=== PATIENT | female | born 1950 | race Caucasian/White ===

== ENCOUNTER → 2016-07-07 | Outpatient (CLI) | payer MEDICARE, OTHER ==
[~2016-07-07] MED LIST: ACHD5005 PO; DULO60CA6; EST.625T PO; LEVO75TA57 PO; METF-380 PO; METO25TA PO; OXYB5SYR2 PO; OXYB5TAB9 PO; PARO40TA47 PO; SULF1TAB38 PO; VESICARE
== END ==
LOC: RAD 10:14
PROVIDERS: ATTEND Family Medicine
DX: Z12.31 Encounter for screening mammogram for malignant neoplasm of breast (principal)
CPT/HCPCS: 77067

== ENCOUNTER 2017-07-16 10:42 | Emergency (ER) | payer OTHER, MEDICARE ==
[~2017-07-16] VITALS: Ht 149.9 cm; Wt 72.6 kg
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
--- NOTE | 2017-07-16 12:00 | Diagnostic Imaging Report ---
PROCEDURE: CT head and CT cervical spine without contrast. TECHNIQUE: Multiple contiguous axial images were obtained through the brain and cervical spine without the use of intravenous contrast. Sagittal and coronal reformations through the cervical spine were then performed. INDICATION: Recent fall. Neck pain and stiffness. COMPARISON: 11/02/2010 FINDINGS: Head CT: No acute intracranial hemorrhage, mass effect or edema is seen. Cortez-white junction is preserved. Ventricles appear normal. No new focal abnormality is suspected. No basilar skull fracture suspected. Paranasal sinuses and mastoids are clear as visualized. Cervical spine CT: No acute fracture, malalignment or osseous destructive process is seen. Vertebral body heights are maintained. There is disc space narrowing and spurring most pronounced at C5/C6 and C6/C7. There are degenerative changes at the C1/C2 articulation as well particularly on the right. No acute soft tissue abnormality is suspected. IMPRESSION: 1. No evidence of an acute intracranial abnormality. 2. No evidence of acute cervical spine abnormality. Degenerative changes as described. Dictated by: Dictated on workstation # [id number]
[2017-07-16 12:19] VITALS: BP 144/116
== END 2017-07-16 12:19 | disposition home or self-care (01) ==
LOC: EDUNIT# 10:42 → ER 10:44
DX: S16.1XXA Strain of muscle, fascia and tendon at neck level, initial encounter (principal); S20.212A Contusion of left front wall of thorax, initial encounter; E03.9 Hypothyroidism, unspecified; E11.9 Type 2 diabetes mellitus without complications; Z88.1 Allergy status to other antibiotic agents; Z79.84 Long term (current) use of oral hypoglycemic drugs; Z87.19 Personal history of other diseases of the digestive system; V48.5XXA Car driver injured in noncollision transport accident in traffic accident, initial encounter
CPT/HCPCS: 70450; 71046; 72125

== ENCOUNTER → 2017-11-18 | Outpatient (CLI) | payer MEDICARE, OTHER | LOC: CARD 13:31 | PROVIDERS: ATTEND Internal Medicine Interventional Cardiology | DX: R06.02 Shortness of breath (principal); I08.1 Rheumatic disorders of both mitral and tricuspid valves | CPT/HCPCS: 93306 ==

== ENCOUNTER → 2017-11-29 | Day surgery (SDC) | payer MEDICARE, OTHER ==
[~2017-11-29] VITALS: Ht 152.4 cm; Wt 72.6 kg
[2017-11-29] VITALS (14 sets, daily range): BP systolic 88–137; BP diastolic 41–80
[~2017-11-29] MED LIST changes: +ASPI-983 PO; +LIDOCAINE 2% VISCOUS 15 ML UDC ONE; +LIDOCAINE 2% VISCOUS 15 ML UDC PO ONE; +MIDAZOLAM 5 MG/5 ML (VERSED) VIAL IV PRN; +MIDAZOLAM 5 MG/5 ML (VERSED) VIAL ONE; +NS IV 1000 ML 1,000 ML IV SCH; +NS IV 1000 ML 1,000 ML ONE; +OMEG1CAP58 PO; +PARO30TA74 PO; +fentaNYL INJECTION 100 MCG/2 ML AMP IVP PRN; +fentaNYL INJECTION 100 MCG/2 ML AMP ONE
--- NOTE | 2017-11-29 12:11 | Cardiac Procedure Note-CS/ASA ---
Pre-Procedure Note Pre-Op Procedure Note H&P Reviewed The H&P was reviewed, patient examined and no changes noted. Date H&P Reviewed: Nov 29, 2017 Time H&P Reviewed: 09:30 Conscious Sedation Pre-Proced Time 09:30 ASA Score 3 For ASA 3 and 4: Consider anesthesia and medical clearance. Also, for patients with a history of failed moderate sedation consider anesthesia. Airway Lungs Heart ASA score ASA 1: a normal healthy patient ASA 2: a patient with a mild systemic disease (mid diabetes, controlled hypertension, obesity ASA 3: a patient with a severe systemic disease that limits activity (angina , COPD, prior Myocardial infarction) ASA 4: a patient with an incapacitating disease that is a constant threat to life (CHF, renal failure) ASA 5: a moribund patient not expected to survive 24 hrs. (ruptured aneurysm) ASA 6: a declared brain patient whose organs are being harvested. For emergent operations, add the letter E after the classification Mallampati Classification Grade 1 Sedation Plan Analgesia, Amnesia, Plan communicated to team members, Discussed options with patient/fam, Discussed risks with patient/fam The patient is an appropriate candidate to undergo the planned procedure, sedation, and anesthesia. The patient immediately re-assessed prior to indication. Vinod MALHOTRA MD Nov 29, 2017 12:11 pm
== END | disposition home or self-care (01) ==
LOC: CATH 08:29
PROVIDERS: ATTEND Internal Medicine Interventional Cardiology
DX: I08.0 Rheumatic disorders of both mitral and aortic valves (principal); I10 Essential (primary) hypertension; E78.5 Hyperlipidemia, unspecified; I25.10 Atherosclerotic heart disease of native coronary artery without angina pectoris; E11.9 Type 2 diabetes mellitus without complications; R55 Syncope and collapse; R06.02 Shortness of breath; Z79.84 Long term (current) use of oral hypoglycemic drugs; Z79.899 Other long term (current) drug therapy; Z79.82 Long term (current) use of aspirin
CPT/HCPCS: 93312; 93320; 93325

== ENCOUNTER 2018-05-04 10:41 | Outpatient (RCR) | payer MEDICARE, OTHER ==
[~2018-05-04 10:41] MED LIST changes: -LIDOCAINE 2% VISCOUS 15 ML UDC ONE; -LIDOCAINE 2% VISCOUS 15 ML UDC PO ONE; -MIDAZOLAM 5 MG/5 ML (VERSED) VIAL IV PRN; -MIDAZOLAM 5 MG/5 ML (VERSED) VIAL ONE; -NS IV 1000 ML 1,000 ML IV SCH; -NS IV 1000 ML 1,000 ML ONE; -fentaNYL INJECTION 100 MCG/2 ML AMP IVP PRN; -fentaNYL INJECTION 100 MCG/2 ML AMP ONE
[2018-05-30] MEDS ORDERED: POTA-51 PO (15:09)
[2018-05-30] MEDS ORDERED: FURO40TA4 PO (15:10)
[2018-05-30] MEDS ORDERED: LISI-552 PO (15:10)
[2018-05-30] MEDS ORDERED: ATOR20TA66 PO (15:12)
[2018-05-30] MEDS ORDERED: NITR-65 PO (16:02)
== END 2018-07-12 | disposition home or self-care (01) ==
LOC: CR 10:41
PROVIDERS: ATTEND Thoracic Surgery (Cardiothoracic Vascular Surgery)
DX: Z48.812 Encounter for surgical aftercare following surgery on the circulatory system (principal); Z95.2 Presence of prosthetic heart valve
CPT/HCPCS: 93798

== ENCOUNTER 2018-05-30 14:26 | Emergency (ER) | payer MEDICARE, OTHER ==
[~2018-05-30] VITALS: Ht 149.9 cm; Wt 68.0 kg
[2018-05-30] MEDS ORDERED: POTA-51 PO (15:09)
[2018-05-30] MEDS ORDERED: FURO40TA4 PO (15:10)
[2018-05-30] MEDS ORDERED: LISI-552 PO (15:10)
[2018-05-30] MEDS ORDERED: ATOR20TA66 PO (15:12)
--- NOTE | 2018-05-30 15:24 | ED GU-Female ---
General Chief Complaint: General Problems/Pain Stated Complaint: FLUID RETENTION,COUGH, Nursing Triage Note: SUE AMBULATORY TO ER ROOM 7 WITH COMPLAINT OF CHEST TIGHTNESS WITH COUGHING , POSSIBLE FLUID RETENTION AND PAIN WITH URINATION. PATIENT STATES THE COUGH AND CHEST TIGHTNESS STARTED 2 DAYS AGO. SHE STATES SHE GAINED 5 LBS IN ONE DAY TODAY AND BELIEVES SHE HAS FLUID RETENTION. PATIENT ALSO COMPLAINS OF PAIN WITH URINATION X 3 DAYS. PATIENT IS CONSCIOUS, ALERT AND ORIENTED X4. Nursing Sepsis Screen: No Definite Risk Source: patient Exam Limitations: no limitations History of Present Illness Date Seen by Provider: May 30, 2018 Time Seen by Provider: 15:22 Initial Comments This 68-year-old white female presents with complaint of dysuria and frequency. She is concerned that she has urinary tract infection. Allergies and Home Medications Allergies Coded Allergies: vancomycin (Verified Allergy, Mild, 05/30/18) Home Medications Aspirin 81 Mg Tablet.dr, 81 MG PO DAILY, (Reported) Atorvastatin Calcium 20 Mg Tablet, 20 MG PO DAILY, (Reported) Furosemide 40 Mg Tablet, 40 MG PO DAILY, (Reported) Lisinopril 20 Mg Tablet, 20 MG PO DAILY, (Reported) Metformin Hcl 1,000 Mg Tablet, 1,000 MG PO BID WITH MEALS, (Reported) Metoprolol Succinate 25 Mg Tab.sr.24h, 25 MG PO HS, (Reported) [place]-3 Fatty Acids/Fish Oil 1 Each Capsule, 4 EACH PO DAILY, (Reported) Oxybutynin Chloride 5 Mg Tablet, 5 MG PO TID, (Reported) Potassium Chloride 20 Meq Tablet.er, 20 MEQ PO DAILY, (Reported) Patient Home Medication List Home Medication List Reviewed: Yes Review of Systems Review of Systems Constitutional: No chills, No fever EENTM: No hearing loss Respiratory: cough Cardiovascular: No chest pain Gastrointestinal: No abdominal pain, No nausea, No vomiting Genitourinary: dysuria, frequency Musculoskeletal: No back pain Skin: No rash Psychiatric/Neurological: No Symptoms Reported Endocrine: No Symptoms Reported Past Rehlqdo-Aulkxd-Bmapdr Hx Past Med/Social Hx: Reviewed Nursing Past Med/Soc Hx Patient Social History Alcohol Use: Denies Use Recreational Drug Use: No Smoking Status: Never a Smoker 2nd Hand Smoke Exposure: No Recent Foreign Travel: No Contact w/Someone Who Travel: No Recent Infectious Disease Expo: No Recent Hopitalizations: No (FALL & BROKEN BONES, CHILDREN, HYSTERECTOMY, KIDNEY INFECTION, KNEE REPLACE) Immunizations Up To Date Tetanus Booster (TDap): Unknown Date of Pneumonia Vaccine: Nov 13, 2010 Date of Influenza Vaccine: Oct 18, 2017 Seasonal Allergies Seasonal Allergies: No Past Medical History Surgeries: Yes (LEFT ROTARY CUFF/R WRIST/ ILSA TKR X2, HEART VALVE REPAIR) Cardiac, Section, Hysterectomy, Joint Replacement, Orthopedic Respiratory: No Cardiac: Yes (CONGESTIVE HEART FAILURE) High Cholesterol, Hypertension, Valvular Heart Disease Neurological: No Reproductive Disorders: 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 Sexually Transmitted Disease: No HIV/AIDS: No Genitourinary: No Gastrointestinal: Yes Diverticulosis Musculoskeletal: Yes (BORN WITH DEGENERATIVE BONE DISEASE/ARTHRITIS) Endocrine: Yes Hypothyroidsim, Diabetes, Non-Insulin dep HEENT: Yes Cataract Cancer: No (THYROID TUMORS) Psychosocial: No Integumentary: No Blood Disorders: No Adverse Reaction/Blood Tranf: No Physical Exam Vital Signs Vital Signs - First Documented 05/30/18 14:31 Temp 97.9 Pulse 101 Resp 18 B/P (MAP) 133/68 (89) Pulse Ox 98 O2 Delivery Room Air Capillary Refill : Less Than 3 Seconds Height, Weight, BMI Height: 4'11.00" Weight: 150lbs. 0.0oz. 68.702560lu; 31.3 BMI Method:Actual General Appearance: WD/WN, no apparent distress HEENT: normal ENT inspection Neck: full range of motion, normal inspection Cardiovascular: regular rate, rhythm Respiratory: lungs clear Gastrointestinal: non tender Back: normal inspection Extremities: normal range of motion, normal inspection Neurologic/Psychiatric: no motor/sensory deficits, alert Skin: normal color, warm/dry Progress/Results/Core Measures Suspected Sepsis Recent Fever Within 48 Hours: No Infection Criteria Present: Suspected New Infection New/Unexplained Altered Menta: No Sepsis Screen: No Definite Risk SIRS Temperature:97.9 Pulse: 101 Respiratory Rate: 18 Laboratory Tests 05/30/18 15:26: White Blood Count 6.6 Blood Pressure 133 /68 Mean: 89 Laboratory Tests 05/30/18 15:26: Creatinine 0.95, Platelet Count 344, Total Bilirubin 0.4 Results/Orders Lab Results Laboratory Tests Test 05/30/18 14:44 05/30/18 15:26 Range/Units Urine Color YELLOW Urine Clarity VERY CLOUDY H Urine pH 5 5-9 Urine Specific [place] 1.020 1.016-1.022 Urine Protein 2+ H NEGATIVE Urine Glucose (UA) NEGATIVE NEGATIVE Urine Ketones NEGATIVE NEGATIVE Urine Nitrite NEGATIVE NEGATIVE Urine Bilirubin NEGATIVE NEGATIVE Urine Urobilinogen NORMAL NORMAL MG/DL Urine Leukocyte Esterase 3+ H NEGATIVE Urine RBC (Auto) 2+ H NEGATIVE Urine RBC 2-5 H /HPF Urine WBC TNTC H /HPF Urine Squamous Epithelial Cells 2-5 /HPF Urine Crystals NONE /LPF Urine Bacteria MODERATE H /HPF Urine Casts NONE /LPF Urine Mucus NEGATIVE /LPF Urine Culture Indicated YES White Blood Count 6.6 4.3-11.0 10^3/uL Red Blood Count 4.08 L 4.35-5.85 10^6/uL Hemoglobin 11.3 L 11.5-16.0 G/DL Hematocrit 35 35-52 % Mean Corpuscular Volume 86 80-99 FL Mean Corpuscular Hemoglobin 28 25-34 PG Mean Corpuscular Hemoglobin Concent 32 32-36 G/DL Red Cell Distribution Width 14.4 10.0-14.5 % Platelet Count 344 130-400 10^3/uL Mean Platelet Volume 11.1 H 7.4-10.4 FL Neutrophils (%) (Auto) 56 42-75 % Lymphocytes (%) (Auto) 37 12-44 % Monocytes (%) (Auto) 6 0-12 % Eosinophils (%) (Auto) 2 0-10 % Basophils (%) (Auto) 1 0-10 % Neutrophils # (Auto) 3.7 1.8-7.8 X 10^3 Lymphocytes # (Auto) 2.4 1.0-4.0 X 10^3 Monocytes # (Auto) 0.4 0.0-1.0 X 10^3 Eosinophils # (Auto) 0.1 0.0-0.3 10^3/uL Basophils # (Auto) 0.1 0.0-0.1 10^3/uL Sodium Level 140 135-145 MMOL/L Potassium Level 4.1 3.6-5.0 MMOL/L Chloride Level 107 98-107 MMOL/L Carbon Dioxide Level 23 21-32 MMOL/L Anion Gap 10 5-14 MMOL/L Blood Urea Nitrogen 17 7-18 MG/DL Creatinine 0.95 0.60-1.30 MG/DL Estimat Glomerular Filtration Rate 58 BUN/Creatinine Ratio 18 Glucose Level 121 H 70-105 MG/DL Calcium Level 9.9 8.5-10.1 MG/DL Corrected Calcium 9.9 8.5-10.1 MG/DL Total Bilirubin 0.4 0.1-1.0 MG/DL Aspartate Amino Transf (AST/SGOT) 15 5-34 U/L Alanine Aminotransferase (ALT/SGPT) 13 0-55 U/L Alkaline Phosphatase 93 40-136 U/L Troponin I < 0.028 <0.028 NG/ML Total Protein 7.5 6.4-8.2 GM/DL Albumin 4.0 3.2-4.5 GM/DL My Orders Orders - AMPARO GARCIA MD Ekg Tracing (05/30/18 14:35) Ua Culture If Indicated (05/30/18 15:18) Cbc With Automated Diff (05/30/18 15:18) Troponin I (05/30/18 15:18) Comprehensive Metabolic Panel (05/30/18 15:18) Chest 1 View, Ap/Pa Only (05/30/18 15:18) Urine Culture (05/30/18 14:44) Vital Signs/I&O 05/30/18 14:31 Temp 97.9 Pulse 101 Resp 18 B/P (MAP) 133/68 (89) Pulse Ox 98 O2 Delivery Room Air Capillary Refill : Less Than 3 Seconds Blood Pressure Mean: 89 Progress Note : Time: 15:59 Progress Note The patient's urinalysis was consistent with a urinary tract infection. After discussion of the findings with the patient Macrobid 100 mg orally was initiated in the emergency department and a prescription was written for the patient uses at home. I encouraged the patient to follow up closely with her caregivers within the next 48 hours and I invited her to return to emergency department if she had any further problems or questions. Departure Impression Primary Impression: Urinary tract infection Qualified Codes: N30.00 - Acute cystitis without hematuria Disposition: HOME, SELF-CARE Condition: Improved Departure-Patient Inst. Decision time for Depature: 16:00 Referrals: ROSEMARIE JEFFERY MD (PCP/Family) Primary Care Physician Patient Instructions: Urinary Tract Infection, Adult (DC) Add. Discharge Instructions: Macrobid as prescribed. Close follow-up with your doctor within the next 48 hours. Return if any problems or questions. All discharge instructions reviewed with patient and/or family. Voiced understanding. Scripts Nitrofurantoin Monohyd/M-Cryst (Macrobid 100 mg Capsule) 100 Mg Capsule 1 TAB PO BID for 7 Days, CAP Prov: AMPARO GARCIA MD 05/30/18 AMPARO GARCIA MD May 30, 2018 15:24
[2018-05-30 15:31] LABS: BILIRUBIN,URINE NEGATIVE (NEGATIVE); CLARITY,URINE VERY CLOUDY; COLOR,URINE YELLOW; GLUCOSE, URINE (UA) NEGATIVE (NEGATIVE); KETONES,URINE NEGATIVE (NEGATIVE); LEUKOCYTE ESTERASE ,URINE 3+ (NEGATIVE); NITRITE,URINE NEGATIVE (NEGATIVE); PH,URINE 5 (5-9); PROTEIN,URINE 2+ (NEGATIVE); UROBILINOGEN,URINE NORMAL (NORMAL)
[2018-05-30 15:36] LABS: BASOPHILS # (AUTO) 0.1 10^3/uL (0.0-0.1); BASOPHILS % (AUTO) 1 % (0-10); EOSINOPHILS # (AUTO) 0.1 10^3/uL (0.0-0.3); EOSINOPHILS % (AUTO) 2 % (0-10); HEMATOCRIT 35 % (35-52); HEMOGLOBIN 11.3 G/DL (11.5-16.0); LYMPHOCYTES # (AUTO) 2.4 X 10^3 (1.0-4.0); LYMPHOCYTES % (AUTO) 37 % (12-44); MEAN CORPUSCULAR HEMOGLOBIN 28 PG (25-34); MEAN CORPUSCULAR HGB CONC 32 G/DL (32-36); MEAN CORPUSCULAR VOLUME 86 FL (80-99); MEAN PLATELET VOLUME 11.1 FL (7.4-10.4); MONOCYTES # (AUTO) 0.4 X 10^3 (0.0-1.0); MONOCYTES % (AUTO) 6 % (0-12); NEUTROPHILS # (AUTO) 3.7 X 10^3 (1.8-7.8); NEUTROPHILS % (AUTO) 56 % (42-75); PLATELET COUNT 344 10^3/uL (130-400); RED CELL DISTRIBUTION WIDTH 14.4 % (10.0-14.5); WHITE BLOOD COUNT 6.6 10^3/uL (4.3-11.0)
[2018-05-30 15:51] LABS: BACTERIA,URINE MODERATE /HPF; WBC,URINE TNTC /HPF
[2018-05-30 15:52] LABS: ALANINE AMINOTRANSFERASE 13 U/L (0-55); ALKALINE PHOSPHATASE 93 U/L (40-136); BILIRUBIN,TOTAL 0.4 MG/DL (0.1-1.0); BUN/CREATININE RATIO 18; CALCIUM 9.9 MG/DL (8.5-10.1); CARBON DIOXIDE 23 MMOL/L (21-32); CHLORIDE 107 MMOL/L (98-107); CREATININE SERUM 0.95 MG/DL (0.60-1.30); GFR ESTIMATED 58; GLUCOSE 121 MG/DL (70-105); POTASSIUM 4.1 MMOL/L (3.6-5.0); SODIUM 140 MMOL/L (135-145); TOTAL PROTEIN 7.5 GM/DL (6.4-8.2)
[2018-05-30] MEDS ORDERED: NITROFURANTOIN 100 MG (MACROBID) CAPSULE PO ONE (16:00)
[2018-05-30] MEDS ORDERED: NITR-65 PO (16:02)
[2018-05-30 16:16] VITALS: BP 107/63
--- NOTE | 2018-05-30 16:56 | Diagnostic Imaging Report ---
INDICATION: Chest pain. Portable chest 3:42 PM. FINDINGS: Heart size and pulmonary vascularity are normal. Lungs are clear. There are no effusions or pneumothoraces. There are postop changes from median sternotomy. IMPRESSION: Postsurgical changes in the chest. No acute abnormalities. Dictated by: Dictated on workstation # [id number]
== END 2018-05-30 16:16 | disposition home or self-care (01) ==
LOC: EDUNIT# 14:26 → ER 14:27
DX: N39.0 Urinary tract infection, site not specified (principal); E78.00 Pure hypercholesterolemia, unspecified; I10 Essential (primary) hypertension; E03.9 Hypothyroidism, unspecified; E11.9 Type 2 diabetes mellitus without complications; Z86.39 Personal history of other endocrine, nutritional and metabolic disease; Z87.19 Personal history of other diseases of the digestive system; Z88.1 Allergy status to other antibiotic agents; Z79.82 Long term (current) use of aspirin; Z79.84 Long term (current) use of oral hypoglycemic drugs; Z87.448 Personal history of other diseases of urinary system; Z96.653 Presence of artificial knee joint, bilateral; Z95.2 Presence of prosthetic heart valve; Z90.710 Acquired absence of both cervix and uterus; Z98.890 Other specified postprocedural states
CPT/HCPCS: 36415; 71045; 80053; 81000; 84484; 85025; 87077; 87088; 87186; 93005

== ENCOUNTER 2019-07-07 08:04 | Outpatient (RCR) | payer MEDICARE, OTHER ==
[~2019-07-07] VITALS: Ht 149 cm; Wt 67.0 kg
[~2019-07-07 08:04] MED LIST changes: +ATOR20TA66 PO; +FERR-84 PO; +FURO40TA4 PO; +LEVO75TA6 PO; +LISI-552 PO; +METF-399 PO; +METO-351 PO; +NITR-65 PO; +PARO20TA5 PO; +POTA-51 PO
== END 2019-07-07 14:28 | disposition home or self-care (01) ==
LOC: PREOP 08:04
PROVIDERS: ATTEND Surgery
DX: Z01.818 Encounter for other preprocedural examination (principal); Z11.59 Encounter for screening for other viral diseases; K21.9 Gastro-esophageal reflux disease without esophagitis; D64.9 Anemia, unspecified; K62.5 Hemorrhage of anus and rectum
CPT/HCPCS: 87635

== ENCOUNTER → 2019-08-10 | Outpatient (CLI) | payer MEDICARE, OTHER ==
[~2019-08-10] MED LIST changes: +PANT40TA2 PO
== END ==
LOC: CARD 13:54
PROVIDERS: ATTEND Internal Medicine Interventional Cardiology
DX: I34.0 Nonrheumatic mitral (valve) insufficiency (principal)
CPT/HCPCS: 93306

== ENCOUNTER 2020-05-20 18:32 | Emergency (ER) | payer MEDICARE, OTHER ==
[~2020-05-20] VITALS: Ht 149.8 cm; Wt 63.6 kg
[~2020-05-20 18:32] MED LIST changes: +ASPI-1238 PO; -ASPI-983 PO; -LISI-552 PO; +LISI20TA26 PO
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
[2020-05-20] MEDS ORDERED: RX-HYDROCODONE/APAP 5/325 MG #4 TAB PK PO PRN (19:00)
[2020-05-20] MEDS ORDERED: TETANUS,DIPTH,PERTUSS P/F (BOOSTRIX) 0.5 ML VIAL IM ONE (19:00)
[2020-05-20 19:23] VITALS: BP 98/42
[2020-05-20] MEDS ORDERED: MUPIROCIN 2% OINT 22 GM (BACTROBAN) TUBE TOP SCH (21:00)
== END 2020-05-20 19:23 | disposition home or self-care (01) ==
LOC: EDUNIT# 18:32 → ER 18:37
DX: T21.21XA Burn of second degree of chest wall, initial encounter (principal); E78.00 Pure hypercholesterolemia, unspecified; I10 Essential (primary) hypertension; F32.9 Major depressive disorder, single episode, unspecified; F41.9 Anxiety disorder, unspecified; K21.9 Gastro-esophageal reflux disease without esophagitis; E03.9 Hypothyroidism, unspecified; E11.9 Type 2 diabetes mellitus without complications; Z23 Encounter for immunization; Z88.8 Allergy status to other drugs, medicaments and biological substances; Z79.82 Long term (current) use of aspirin; Z79.890 Hormone replacement therapy; Z79.84 Long term (current) use of oral hypoglycemic drugs; X12.XXXA Contact with other hot fluids, initial encounter
CPT/HCPCS: 90471; 90715; 99284

== ENCOUNTER → 2020-06-11 | Outpatient (CLI) | payer MEDICARE, OTHER | LOC: CARD 13:50 | PROVIDERS: ATTEND Internal Medicine Cardiovascular Disease | DX: I11.9 Hypertensive heart disease without heart failure (principal); I08.1 Rheumatic disorders of both mitral and tricuspid valves; Z95.2 Presence of prosthetic heart valve | CPT/HCPCS: 93306 ==

== ENCOUNTER → 2020-07-24 | Outpatient (CLI) | payer MEDICARE, OTHER ==
[~2020-07-24] MED LIST changes: +CATHETER FLUSH 10 ML SYR IV PRN; +REGADENOSON 0.4 MG/5 ML SYR (LEXISCAN) IV ONE
[2020-07-24 13:41] VITALS: BP 116/70
--- NOTE | 2020-07-24 15:21 | Cardiology Stress Test Report ---
Stress Test Report Date of Procedure/Referring: Date of Procedure: Jul 24, 2020 PCP Matthew Dobbins MD Admitting Physician Tam Quiles MD Indications: HTN Baseline Heart Rate: 53 Baseline Blood Pressure: Blood Pressure Systolic: 116 Blood Pressure Diastolic: 70 Baseline Vitals Vital Signs Date Time Temp Pulse Resp B/P (MAP) Pulse Ox O2 Delivery O2 Flow Rate FiO2 07/24/20 13:41 53 18 116/70 (85) Baseline EKG: Baseline EKG: NSR Summary After explaining the procedure to the patient, she signed a consent and then brought to the stress nuclear laboratory. Patient received 0.4 mg Lexiscan for stress test, ECG, heart rate and blood pressure were monitored continuously. Resting and stress dose of radio tracer were injected, imaging was acquired and reviewed in short axis, horizontal long axis and vertical long axis views. TID: 1.0 SSS: 8 SDS: 5 EF: 86 1. Patient tolerated Lexiscan well 2. Breast attenuation affecting the quality of the images there is mild decreased uptake in the mid to apical anterolateral and inferolateral wall with mild reversibility, probably due to breast attenuation 3. Normal left ventricular size, EF 86% MATTHEW DOBBINS MD Jul 24, 2020 15:21
== END ==
LOC: CARD 12:30
PROVIDERS: ATTEND Internal Medicine Cardiovascular Disease
DX: I10 Essential (primary) hypertension (principal); R07.9 Chest pain, unspecified
CPT/HCPCS: 78452; 93017; A9502

== ENCOUNTER 2020-07-31 11:00 | Day surgery (SDC) | payer MEDICARE, OTHER ==
[2020-07-31] VITALS (10 sets, daily range): BP systolic 110–138; BP diastolic 58–84
[~2020-07-31] VITALS: Ht 149 cm; Wt 63.6 kg
[2020-07-31 08:59] LABS: HEMATOCRIT 35 % (35-52); HEMOGLOBIN 10.5 g/dL (11.5-16.0); MEAN CORPUSCULAR HEMOGLOBIN 25 pg (25-34); MEAN CORPUSCULAR HGB CONC 30 g/dL (32-36); MEAN CORPUSCULAR VOLUME 83 fL (80-99); MEAN PLATELET VOLUME 11.1 fL (9.0-12.2); PLATELET COUNT 372 10^3/uL (130-400); WHITE BLOOD COUNT 9.4 10^3/uL (4.3-11.0)
[2020-07-31 09:13] LABS: INR 1.1 (0.8-1.4); PROTHROMBIN TIME PATIENT 14.1 SEC (12.2-14.7)
[2020-07-31 09:22] LABS: ALBUMIN 4.2 GM/DL (3.2-4.5); BILIRUBIN,TOTAL 0.3 MG/DL (0.1-1.0); CALCIUM 9.4 MG/DL (8.5-10.1); CREATININE SERUM 0.94 MG/DL (0.60-1.30); POTASSIUM 3.9 MMOL/L (3.6-5.0); TOTAL PROTEIN 7.5 GM/DL (6.4-8.2)
--- NOTE | 2020-07-31 10:00 | Diagnostic Imaging Report ---
INDICATION: Pre-heart catheterization. Patient has chest pain. TIME OF EXAM: 9:06 AM Correlation is made with prior chest from 05/28/2018. FINDINGS: There are changes of median sternotomy. Lungs are clear. No infiltrates are seen. There is no effusion or pneumothorax. IMPRESSION: No acute cardiopulmonary process is detected. Dictated by: Dictated on workstation # [id number]
[~2020-07-31 11:00] MED LIST changes: +ACET325T38 PO; -CATHETER FLUSH 10 ML SYR IV PRN; +NS IV 1000 ML 1,000 ML IV SCH; +PANT40TA52 PO; -REGADENOSON 0.4 MG/5 ML SYR (LEXISCAN) IV ONE
[2020-07-31] MEDS ORDERED: VERAPAMIL 5 MG/2 ML (CALAN) VIAL IV ONE (11:06)
[2020-07-31] MEDS ORDERED: fentaNYL INJ 100 MCG/2 ML AMP ONE (11:07)
[2020-07-31] MEDS ORDERED: HEParin 1000 UNIT/ML (10ML VIAL) FOR BOLUS ONE (11:07)
[2020-07-31] MEDS ORDERED: MIDAZOLAM 5 MG/5 ML (VERSED) VIAL ONE (11:07)
[2020-07-31] MEDS ORDERED: NITRO DRIP 25000 MCG/D5W 250 ML IV ONE (11:08)
--- NOTE | 2020-07-31 11:42 | Conscious Sedation/ASA ---
Conscious Sedation Pre-Proced Time 11:41 ASA Score 3 For ASA 3 and 4: Consider anesthesia and medical clearance. Also, for patients with a history of failed moderate sedation consider anesthesia. Airway Lungs Heart ASA score ASA 1: a normal healthy patient ASA 2: a patient with a mild systemic disease (mid diabetes, controlled hypertension, obesity x ASA 3: a patient with a severe systemic disease that limits activity (angina, COPD, prior Myocardial infarction) ASA 4: a patient with an incapacitating disease that is a constant threat to life (CHF, renal failure) ASA 5: a moribund patient not expected to survive 24 hrs. (ruptured aneurysm) ASA 6: a declared brain- patient whose organs are being harvested. For emergent operations, add the letter E after the classification Mallampati Classification Grade 3 Sedation Plan Analgesia, Amnesia, Plan communicated to team members, Discussed options with patient/fam, Discussed risks with patient/fam The patient is an appropriate candidate to undergo the planned procedure, sedation, and anesthesia. The patient immediately re-assessed prior to indication. MATTHEW VILLALOBOS MD Jul 31, 2020 11:42 am
[2020-07-31] MEDS ORDERED: METF-399 PO (11:43)
--- NOTE | 2020-07-31 11:44 | Discharge Inst-Post CATH ---
Discharge Inst-CATH/EP Problems Reviewed?: Yes Post Cardiac Cath/EP D/C Inst Follow Up/Plan Hold Metformin for [address] Dobbins's office in 2 to 4 weeks <b>CARDIAC CATH/EP PROCEDURE DISCHARGE INSTRUCTIONS</b> ACTIVITY * Go Home directly and rest. * Limit activity of the leg (or wrist if it was used) for 7 days including aerobics, swimming, jogging, bicycling, etc. * Restrict stair-climbing for 7 days if possible, if not, climb up with your non-cath leg, then bring together on the same step. * Avoid lifting, pushing, pulling or excessive movement of the affected extremity for 7 days. * Customary sexual activity may be resumed after 2 days-use caution not to use a position that strains or causes pain to the affected extremity. * No driving for 24 hours. * NO SMOKING. * Avoid straining for bowel movements for 7 days. * Gentle walking on level ground is allowed. * Returning to work will depend on the type of procedure and the results. Your doctor will discuss this with you. CALL YOUR DOCTOR FOR ANY OF THE FOLLOWING: *If bleeding from the puncture site occurs- Apply gentle pressure to site with clean cloth and call your doctor or EMS. * If a knot or lump forms under the skin, increases in size, or causes pain. * If bruising appears to be worsening or moving further down your leg instead of disappearing. * Temperature above 101 F. CARE OF YOUR GROIN INCISION; * Bruising or purple discoloration of the skin near the puncture site is common. * You may shower only, no bathtub bathing for 5 days. Be careful to avoid slipping as your leg may feel stiff. * If a closure device was used on your femoral artery, please see the attached guide regarding care of the device and your leg. * Leave dressing on FOR 24 hours. CARE OF YOUR WRIST INCISION; * Bruising or purple discoloration of the skin near the puncture site is common. * You may shower. * DO NOT submerge wrist. * Leave dressing on FOR 24 hours. MATTHEW DOBBINS MD Jul 31, 2020 11:44 am
[2020-07-31] MEDS ORDERED: NS IV 1000 ML 1,000 ML IV SCH (11:45)
--- NOTE | 2020-07-31 11:47 | Cardiac Cath Report ---
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 After explaining the procedure to the patient, all pros and cons were explained, all questions were answered. The patient signed the consent and then she was placed on the cardiac catheterization laboratory. Groin was prepped SL fashion local anesthesia was used. Sheath placed in the right radial artery, [place] catheter was advanced to the left coronary system, angiogram was done, unable to intubate well the right system, the catheter was removed and Niesha right catheter was used to advance to the right coronary system, angiogram was done. At the end of the procedure sheath was removed, vascular band deployed without complication. FINDINGS: Hemodynamics LV did not cross the aortic valve Aorta 80/34 mean of 53 ANATOMY: Left Main has no significant obstructive disease Left Anterior Descending has 20 to 30% ostial stenosis, mild irregularity distally nonobstructive disease Left Circumflex has mild disease nonobstructive disease Right Coronary Artery is dominant artery with no significant obstructive disease Fluoroscopy showed drained at the level of the mitral valve secondary to mitral valve repair CONCLUSION: 1. Mild ostial LAD stenosis nonobstructive disease 2. Otherwise mild coronary artery disease no significant obstructive disease 3. Fluoroscopy showed a ring around the mitral valve DISCUSSION AND RECOMMENDATION: Medical therapy is recommended no intervention is needed Anesthesia Type: Conscious Sedation Estimated blood loss (mL): 10 ml Contrast Amount: 40 ml Total Radiation Dose: 168 mGy Post-Procedure Diagnosis Post-operative diagnosis: Chest pain Coronary artery disease Hypertension Hyperlipidemia MATTHEW VILLALOBOS MD Jul 31, 2020 11:47 am
== END 2020-07-31 14:15 ==
LOC: CATH 11:00
PROVIDERS: ATTEND Internal Medicine Cardiovascular Disease
DX: I25.10 Atherosclerotic heart disease of native coronary artery without angina pectoris (principal); I10 Essential (primary) hypertension; I65.23 Occlusion and stenosis of bilateral carotid arteries; E78.5 Hyperlipidemia, unspecified; E11.9 Type 2 diabetes mellitus without complications; D64.9 Anemia, unspecified; E78.2 Mixed hyperlipidemia; Z79.890 Hormone replacement therapy; Z79.899 Other long term (current) drug therapy; Z79.84 Long term (current) use of oral hypoglycemic drugs; Z79.82 Long term (current) use of aspirin; Z95.2 Presence of prosthetic heart valve
CPT/HCPCS: 71045; 80053; 80061; 85027; 85610; 85730; 87081; 93454; C1894; 36415

== ENCOUNTER → 2021-01-06 | Outpatient (CLI) | payer MEDICARE, OTHER ==
[~2021-01-06] MED LIST changes: +AMIO200T65 PO; +APIX5TAB PO; +DILT180C85 PO; +MTP25TSR PO; +NITR100C PO; -NS IV 1000 ML 1,000 ML IV SCH
== END ==
LOC: LABNPT 08:39
PROVIDERS: ATTEND Internal Medicine Cardiovascular Disease
DX: Z20.822 Contact with and (suspected) exposure to COVID-19 (principal)
CPT/HCPCS: 87635

== ENCOUNTER 2021-01-08 08:25 | Day surgery (SDC) | payer MEDICARE, OTHER ==
[2021-01-08] VITALS (13 sets, daily range): BP systolic 84–117; BP diastolic 50–88
[~2021-01-08] VITALS: Ht 149 cm; Wt 70.0 kg
[~2021-01-08 08:25] MED LIST changes: -AMIO200T65 PO
[2021-01-08] MEDS ORDERED: LIDOCAINE 2% VISCOUS 15 ML UDC PO ONE (08:45)
[2021-01-08] MEDS ORDERED: NS IV 1000 ML 1,000 ML IV SCH (08:45)
[2021-01-08] MEDS ORDERED: ADENOSINE 6 MG/2 ML (ADENOCARD) VIAL IV ONE ×2 (08:45→08:47)
[2021-01-08] MEDS ORDERED: NS IV 1000 ML 1,000 ML ONE (08:47)
[2021-01-08 08:54] LABS: HEMATOCRIT 34 % (35-52); HEMOGLOBIN 10.5 g/dL (11.5-16.0); MEAN CORPUSCULAR HEMOGLOBIN 25 pg (25-34); MEAN CORPUSCULAR HGB CONC 31 g/dL (32-36); MEAN CORPUSCULAR VOLUME 80 fL (80-99); MEAN PLATELET VOLUME 10.3 fL (9.0-12.2); PLATELET COUNT 462 10^3/uL (130-400); WHITE BLOOD COUNT 9.5 10^3/uL (4.3-11.0)
[2021-01-08 09:08] LABS: INR 1.2 (0.8-1.4); PROTHROMBIN TIME PATIENT 15.1 SEC (12.2-14.7)
[2021-01-08] MEDS ORDERED: LIDOCAINE 2% VISCOUS 15 ML UDC ONE (09:12)
--- NOTE | 2021-01-08 09:12 | Diagnostic Imaging Report ---
INDICATION: Atrial fibrillation. TECHNIQUE: Single view chest 8:49 AM. CORRELATION STUDY: 12/12/2020 FINDINGS: Prior sternotomy changes. Heart size is enlarged with the mediastinum prominent. Fairly similar configuration with prior. Vasculature within normal limits. The lungs are clear with no consolidating infiltrate. There is no significant effusion or pneumothorax. IMPRESSION: 1. Generally stable severity cardiac enlargement and prominent mediastinum. No evidence for failure. Dictated by: Dictated on workstation # [id number]
[2021-01-08] MEDS ORDERED: proPOfol 200 MG/20 ML (DIPRIVAN) VIAL IV ONE (09:13)
[2021-01-08 09:18] LABS: ALBUMIN 3.9 GM/DL (3.2-4.5); BILIRUBIN,TOTAL 0.3 MG/DL (0.1-1.0); CALCIUM 9.4 MG/DL (8.5-10.1); POTASSIUM 4.3 MMOL/L (3.6-5.0); TOTAL PROTEIN 7.3 GM/DL (6.4-8.2)
--- NOTE | 2021-01-08 09:31 | Conscious Sedation/ASA ---
Conscious Sedation Pre-Proced Time 09:31 ASA Score 3 For ASA 3 and 4: Consider anesthesia and medical clearance. Also, for patients with a history of failed moderate sedation consider anesthesia. Airway Lungs Heart ASA score ASA 1: a normal healthy patient ASA 2: a patient with a mild systemic disease (mid diabetes, controlled hypertension, obesity ASA 3: a patient with a severe systemic disease that limits activity (angina, COPD, prior Myocardial infarction) ASA 4: a patient with an incapacitating disease that is a constant threat to life (CHF, renal failure) ASA 5: a moribund patient not expected to survive 24 hrs. (ruptured aneurysm) ASA 6: a declared brain- patient whose organs are being harvested. For emergent operations, add the letter E after the classification Mallampati Classification Grade 3 Sedation Plan Analgesia, Amnesia, Plan communicated to team members, Discussed options with patient/fam, Discussed risks with patient/fam The patient is an appropriate candidate to undergo the planned procedure, sedation, and anesthesia. The patient immediately re-assessed prior to indication. MATTHEW VILLALOBOS MD Jan 08, 2021 09:31
--- NOTE | 2021-01-08 09:33 | Cardioversion ---
Cardioversion PROCEDURE PHYSICIAN: Matthew Dobbins DATE OF PROCEDURE: 01/08/21 DIRECT EXTERNAL ELECTRICAL CARDIOVERSION: Indications: Atrial Fibrillation with rapid ventricular rate Preoperative diagnoses: Atrial Fibrillation with rapid ventricular rate Postoperative diagnosis: Sinus rhythm, Successful Electrical Cardioversion History: 70-year-old lady with history of coronary artery disease, mitral valve replacement, hypertension, had atrial fibrillation with variable rate. She was scheduled for [facility] cardioversion. Anesthesia: By Anesthesia services Complications: None Specimen: None Contrast: 0 Flouroscopy: none Procedure Details: The patient was brought the labor economics professor after informed consent was taken, all the risks and complications were explained including the risk of stroke. Electrical cardioversion was carried out with anesthesia support with propofol. 200 joules of synchronized shock was delivered through external patches which promptly restored sinus rhythm. The patient tolerated the procedure well. Conclusions: Successful electrical cardioversion with no complication Final Diagnosis: Paroxysmal atrial fibrillation Coronary artery disease Mitral valve replacement Hypertension MATTHEW DOBBINS MD Jan 08, 2021 09:33
[2021-01-08] MEDS ORDERED: APIXABAN 5 MG (ELIQUIS) TABLET PO SCH (09:45)
[2021-01-08] MEDS ORDERED: AMIODARONE FOR BOLUS 150 MG in D5W 100 ML IVPB 100 ML IV NR (10:00)
--- NOTE | 2021-01-08 11:03 | Anesthesia-General Post-Op ---
MAC Patient Condition Mental Status/LOC: Same as Preop Cardiovascular: Satisfactory Nausea/Vomiting: Absent Respiratory: Satisfactory Pain: Controlled Complications: Absent Post Op Complications Complications None Follow Up Care/Instructions Patient Instructions None needed. Anesthesiology Discharge Order Discharge Order Patient is doing well, no complaints, stable vital signs, no apparent adverse anesthesia problems. No complications reported per nursing. BENY CALVILLO CRNA Jan 08, 2021 11:03
[2021-01-08] MEDS ORDERED: AMIO200T65 PO (11:20)
--- NOTE | 2021-01-08 11:21 | Discharge Inst-Post CATH ---
Discharge Inst-CATH/EP Problems Reviewed?: Yes Post Cardiac Cath/EP D/C Inst Follow Up/Plan Appointment with Dr. Dobbins's office in 2-4 weeks <b>CARDIAC CATH/EP PROCEDURE DISCHARGE INSTRUCTIONS</b> ACTIVITY * Go Home directly and rest. * Limit activity of the leg (or wrist if it was used) for 7 days including aerobics, swimming, jogging, bicycling, etc. * Restrict stair-climbing for 7 days if possible, if not, climb up with your non-cath leg, then bring together on the same step. * Avoid lifting, pushing, pulling or excessive movement of the affected extremity for 7 days. * Customary sexual activity may be resumed after 2 days-use caution not to use a position that strains or causes pain to the affected extremity. * No driving for 24 hours. * NO SMOKING. * Avoid straining for bowel movements for 7 days. * Gentle walking on level ground is allowed. * Returning to work will depend on the type of procedure and the results. Your doctor will discuss this with you. CALL YOUR DOCTOR FOR ANY OF THE FOLLOWING: *If bleeding from the puncture site occurs- Apply gentle pressure to site with clean cloth and call your doctor or EMS. * If a knot or lump forms under the skin, increases in size, or causes pain. * If bruising appears to be worsening or moving further down your leg instead of disappearing. * Temperature above 101 F. CARE OF YOUR GROIN INCISION; * Bruising or purple discoloration of the skin near the puncture site is common. * You may shower only, no bathtub bathing for 5 days. Be careful to avoid slipping as your leg may feel stiff. * If a closure device was used on your femoral artery, please see the attached guide regarding care of the device and your leg. * Leave dressing on FOR 24 hours. CARE OF YOUR WRIST INCISION; * Bruising or purple discoloration of the skin near the puncture site is common. * You may shower. * DO NOT submerge wrist. * Leave dressing on FOR 24 hours. MATTHEW DOBBINS MD Jan 08, 2021 11:21
== END 2021-01-08 13:10 | disposition home or self-care (01) ==
LOC: SDC 08:25 → CATH 13:10
PROVIDERS: ATTEND Internal Medicine Cardiovascular Disease
DX: I48.0 Paroxysmal atrial fibrillation (principal); I25.10 Atherosclerotic heart disease of native coronary artery without angina pectoris; I10 Essential (primary) hypertension; E11.9 Type 2 diabetes mellitus without complications; E78.5 Hyperlipidemia, unspecified; D64.9 Anemia, unspecified; K21.9 Gastro-esophageal reflux disease without esophagitis; Z95.2 Presence of prosthetic heart valve; Z88.0 Allergy status to penicillin; Z88.1 Allergy status to other antibiotic agents; Z79.82 Long term (current) use of aspirin; Z79.899 Other long term (current) drug therapy; Z79.01 Long term (current) use of anticoagulants; Z79.890 Hormone replacement therapy; Z79.84 Long term (current) use of oral hypoglycemic drugs
CPT/HCPCS: 36415; 71045; 80053; 80061; 85027; 85610; 85730; 87081; 92960; 93005; 93312

== ENCOUNTER 2021-03-05 15:23 | Outpatient (RCR) | payer MEDICARE, OTHER ==
[~2021-03-05 15:23] MED LIST changes: +AMIO200T65 PO
== END 2021-04-09 | disposition home or self-care (01) ==
LOC: CR3 15:23
PROVIDERS: ATTEND Internal Medicine Cardiovascular Disease
DX: Z29.8 Encounter for other specified prophylactic measures (principal)

== ENCOUNTER → 2021-03-11 | Outpatient (CLI) | payer MEDICARE, OTHER ==
--- NOTE | 2021-03-11 15:48 | Diagnostic Imaging Report ---
INDICATION: Fall. TIME OF EXAM: 2:33 PM. FINDINGS: Two views of the right-sided ribs were obtained. No definite displaced rib fracture is detected. No parenchymal contusion, effusion, or pneumothorax is identified. Changes of median sternotomy are noted. There are postop changes in the right shoulder. IMPRESSION: No acute feature is detected. Dictated by: Dictated on workstation # [id number]
--- NOTE | 2021-03-11 15:55 | Diagnostic Imaging Report ---
INDICATION: Fall with right shoulder injury and pain AP, oblique and transscapular views of the right shoulder reveal anchor screw in the humeral head with deformity along the greater tuberosity which may be secondary to old injury. No acute fracture or malalignment is identified. IMPRESSION: Postoperative findings and deformity involving the proximal right humerus without evidence of acute fracture or malalignment. Dictated by: Dictated on workstation # [id number]
--- NOTE | 2021-03-11 15:57 | Diagnostic Imaging Report ---
INDICATION: Neck and right shoulder pain. COMPARISON with CT cervical spine of 07/16/2017. FINDINGS: AP and odontoid views. 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 There is complete loss of articulating cartilage with hypertrophic bony changes. The odontoid is intact. There is moderate hypertrophic degenerative change noted throughout the facets. 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 This has shown continued progression since previous CT scan. Dictated by: Dictated on workstation # [id number]
== END ==
LOC: RAD 13:55
PROVIDERS: ATTEND Nurse Practitioner Family
DX: S49.91XA Unspecified injury of right shoulder and upper arm, initial encounter (principal); M47.891 Other spondylosis, occipito-atlanto-axial region; W19.XXXA Unspecified fall, initial encounter
CPT/HCPCS: 71100; 72040; 73030

== ENCOUNTER → 2021-03-19 | Outpatient (CLI) | payer MEDICARE, OTHER ==
--- NOTE | 2021-03-19 11:37 | Diagnostic Imaging Report ---
PROCEDURE: MRI right joint upper extremity without contrast. TECHNIQUE: Multiplanar, multisequence non contrast-enhanced MRI of the right upper extremity was accomplished. INDICATION: Fall with right shoulder pain. COMPARISON: Radiographs from 03/11/2021. FINDINGS: No acute fracture or dislocation is seen in the right shoulder. There is superior migration of the humeral head. There are post surgical changes from prior rotator cuff repair. No significant joint effusion is seen. The [id number] is somewhat large and there is susceptibility artifact from the prior surgery resulting in suboptimal evaluation; however, there does appear to be a full-thickness tear involving the posterior supraspinatus and anterior infraspinatus tendons measuring approximately 1.5 cm wide. There is mild medial retraction of about 1.1 cm. There is additional marked thinning/high-grade partial-thickness tearing of the supraspinatus and infraspinatus tendons. The teres minor tendon appears intact. The subscapularis tendon is intact. There is marked atrophy of the supraspinatus and infraspinatus musculature. The long head of the biceps tendon appears normal in course and signal. The glenoid labrum is suboptimally evaluated in the absence of intra-articular contrast but no definite tear or paralabral cyst is seen. There are severe degenerative changes in the acromioclavicular joint. There appear to be acromioplasty changes of the acromion with a curved undersurface. There may also be some acetabularization of the acromion from superior migration of the humeral head. The soft tissues about the right shoulder are otherwise unremarkable. IMPRESSION: Post surgical changes in the right shoulder with an at least moderate-sized full-thickness tear in the right rotator cuff with additional high-grade partial-thickness tearing resulting in marked atrophy of the supraspinatus and infraspinatus musculature. Dictated by: Dictated on workstation # [id number]
== END ==
LOC: RAD 10:15
PROVIDERS: ATTEND Nurse Practitioner Family
DX: M62.511 Muscle wasting and atrophy, not elsewhere classified, right shoulder (principal); M75.111 Incomplete rotator cuff tear or rupture of right shoulder, not specified as traumatic; Z98.890 Other specified postprocedural states; W19.XXXA Unspecified fall, initial encounter
CPT/HCPCS: 73221

== ENCOUNTER 2021-06-04 13:34 | Outpatient (RCR) | payer MEDICARE, OTHER | END 2021-06-07 | disposition home or self-care (01) | PROVIDERS: ATTEND Orthopaedic Surgery | DX: Z96.611 Presence of right artificial shoulder joint (principal) ==

== ENCOUNTER 2021-07-02 12:46 | Outpatient (RCR) | payer MEDICARE, OTHER | END 2021-07-08 | disposition home or self-care (01) | PROVIDERS: ATTEND Orthopaedic Surgery | DX: Z96.611 Presence of right artificial shoulder joint (principal) ==

== ENCOUNTER 2021-07-30 11:30 | Day surgery (SDC) | payer MEDICARE, OTHER ==
[~2021-07-30] VITALS: Ht 149.9 cm; Wt 68.6 kg
[2021-07-30 11:26] VITALS: BP 132/51
[~2021-07-30 11:30] MED LIST changes: +LIDOCAINE 1% INJ 20 ML VIAL ONE
--- NOTE | 2021-07-30 11:49 | Diagnostic Imaging Report ---
INDICATION: Chest pain. EXAMINATION: Portable chest at 11:31 a.m. FINDINGS: There are postop changes from valve repair surgery. Heart size and pulmonary vascularity are normal. Lungs are clear. There are no effusions or pneumothoraces. Patient has had right shoulder arthroplasty. IMPRESSION: Postsurgical changes. No acute abnormality seen. Dictated by: Dictated on workstation # [id number]
[2021-07-30 11:55] LABS: BASOPHILS # (AUTO) 0.1 10^3/uL (0.0-0.1); BASOPHILS % (AUTO) 1 % (0-10); EOSINOPHILS # (AUTO) 0.1 10^3/uL (0.0-0.3); EOSINOPHILS % (AUTO) 2 % (0-10); HEMATOCRIT 34 % (35-52); HEMOGLOBIN 11.1 g/dL (11.5-16.0); LYMPHOCYTES # (AUTO) 1.8 10^3/uL (1.0-4.0); LYMPHOCYTES % (AUTO) 32 % (12-44); MEAN CORPUSCULAR HEMOGLOBIN 28 pg (25-34); MEAN CORPUSCULAR HGB CONC 32 g/dL (32-36); MEAN CORPUSCULAR VOLUME 88 fL (80-99); MEAN PLATELET VOLUME 10.6 fL (9.0-12.2); MONOCYTES # (AUTO) 0.3 10^3/uL (0.0-1.0); MONOCYTES % (AUTO) 5 % (0-12); NEUTROPHILS # (AUTO) 3.3 10^3/uL (1.8-7.8); NEUTROPHILS % (AUTO) 59 % (42-75); PLATELET COUNT 264 10^3/uL (130-400); WHITE BLOOD COUNT 5.6 10^3/uL (4.3-11.0)
--- NOTE | 2021-07-30 13:37 | Implantation of Loop Monitor ---
Implant of Loop Monitior IMPLANTATION OF LOOP MONITOR REPORT DATE OF PROCEDURE: 07/30/21 PREOP DIAGNOSIS: Paroxysmal atrial fibrillation, sinus node dysfunction POSTOP DIAGNOSIS: Paroxysmal atrial fibrillation, sinus node dysfunction PROCEDURE DETAILS: The patient is a 71 female with history of paroxysmal atrial fibrillation requiring long-term surveillance. Therefore implantable loop recorder was discussed and agreed with the patient. Informed consent was taken. All risks and complications were discussed at length. The patient was draped and prepped in the usual sterile fashion. Local anesthesia was lidocaine, which was given in the substernal area close to the 4th intercostal space. Loop monitor [employer] with serial number [id number] was implanted according to the protocol. Steri- Strips were placed at the end of the procedure. There were no complications and the patient tolerated the procedure well. The device was interrogated with a voltage of. ANESTHESIA: Local anesthesia with lidocaine. COMPLICATIONS: None CONTRAST/FLUOROSCOPY: None CONCLUSION: Successful implantation of loop monitor with no complication FINAL DIAGNOSIS: Paroxysmal atrial fibrillation Sinus node dysfunction Syncope Hypertension MATTHEW VILLALOBOS MD Jul 30, 2021 13:37
== END 2021-07-30 12:42 | disposition home or self-care (01) ==
LOC: CATH 11:30
PROVIDERS: ATTEND Internal Medicine Cardiovascular Disease
DX: I48.0 Paroxysmal atrial fibrillation (principal); I49.5 Sick sinus syndrome; R55 Syncope and collapse; I10 Essential (primary) hypertension; E66.9 Obesity, unspecified; I34.0 Nonrheumatic mitral (valve) insufficiency; I25.10 Atherosclerotic heart disease of native coronary artery without angina pectoris; E11.9 Type 2 diabetes mellitus without complications; E78.2 Mixed hyperlipidemia; I65.23 Occlusion and stenosis of bilateral carotid arteries; Z79.01 Long term (current) use of anticoagulants; Z79.899 Other long term (current) drug therapy; Z79.82 Long term (current) use of aspirin; Z79.84 Long term (current) use of oral hypoglycemic drugs; Z88.0 Allergy status to penicillin; Z88.1 Allergy status to other antibiotic agents; Z87.19 Personal history of other diseases of the digestive system; Z95.2 Presence of prosthetic heart valve; Z68.30 Body mass index [BMI] 30.0-30.9, adult
CPT/HCPCS: 33285; 71045; 84443; 85025; C1764; 36415

== ENCOUNTER 2021-08-06 14:36 | Outpatient (RCR) | payer MEDICARE, OTHER ==
[~2021-08-06 14:36] MED LIST changes: -LIDOCAINE 1% INJ 20 ML VIAL ONE
== END 2021-08-07 | disposition home or self-care (01) ==
PROVIDERS: ATTEND Orthopaedic Surgery
DX: M25.511 Pain in right shoulder (principal); E11.9 Type 2 diabetes mellitus without complications; Z96.611 Presence of right artificial shoulder joint

== ENCOUNTER 2021-08-27 14:30 | Outpatient (RCR) | payer MEDICARE, OTHER | END 2021-09-07 | disposition home or self-care (01) | PROVIDERS: ATTEND Orthopaedic Surgery | DX: M25.511 Pain in right shoulder (principal); E11.9 Type 2 diabetes mellitus without complications; Z96.611 Presence of right artificial shoulder joint ==

== ENCOUNTER 2021-09-07 19:44 | Emergency (ER) | payer MEDICARE, OTHER ==
[~2021-09-07] VITALS: Ht 157.4 cm; Wt 90.3 kg
[2021-09-07] MEDS ORDERED: ASPIRIN 81 MG CHEW (CHILDREN'S ASA) PO ONE (20:00)
[2021-09-07] MEDS ORDERED: NITROGLYCERIN 0.4 MG SL TABS BTL 25'S SL PRN (20:00)
--- NOTE | 2021-09-07 20:00 | ED Chest Pain ---
General Stated Complaint: HX AFIB, BACK AND CHEST PAIN Source: patient, family (Daughter) Exam Limitations: no limitations History of Present Illness Date Seen by Provider: Sep 07, 2021 Time Seen by Provider: 19:49 Initial Comments Patient to the ER by private conveyance from home with chief complaint that she is having chest pain for the past couple weeks. She has been having passing out episodes with the last 1 being 10 days ago. She is had several near syncopal episodes since then with the most recent one at a birthday libertarian tonight prior to coming in. She feels lightheaded before it happens. Her chest pains have been off and on. They are substernal midline. She has a history of Paroxysmal atrial fibrillation, loop monitor placed in July by Dr. Dobbins, sinus node dysfunction, syncope and hypertension. She is followed by Dr. Poole for primary care. She had an echocardiogram January 2021 demonstrating EF of 60%. She has a lot of anxiety. She describes it as a flash of feeling hot, dizzy and nauseated like she is going to pass out. Rates her chest pain as a 7 out of 10. She takes Eliquis, metoprolol, diltiazem and amiodarone. She is been taking these as prescribed. She states he has recently had a double her medications to control her heart rate. She has a history of rheumatic heart disease with a valve replacement. She is had to be cardioverted electrically. Cardiac catheterization from [address] Dobbins demonstrated mild ostial LAD stenosis otherwise nonobstructive disease. She has a history of hyperlipidemia but no hypertension. History of chronic low back pain. She is taking Tylenol for it. Allergies and Home Medications Allergies Coded Allergies: vancomycin (Verified Allergy, Severe, HIVES, DIFFICULTY BREATHING, 07/05/19) Patient Home Medication List Home Medication List Reviewed: Yes Acetaminophen (Tylenol) 325 Mg Tablet, 325 MG PO BID PRN for PAIN-MILD (1-4), (Reported) Entered as Reported by: VARSHA LORA on 07/31/20 0931 Amiodarone HCl (Amiodarone HCl) 200 Mg Tablet, 200 MG PO UD Prescribed by: MATTHEW DOBBINS on 01/08/21 1120 Apixaban (Eliquis) 5 Mg Tablet, 5 MG PO BID Prescribed by: EMY CURRY on 12/14/20 1248 Aspirin (Aspirin EC) 81 Mg Tablet.dr, 81 MG PO HS, (Reported) Entered as Reported by: DIRK BANDA on 11/29/17 1236 Atorvastatin Calcium (Atorvastatin Calcium) 20 Mg Tablet, 20 MG PO HS, (Reported) Entered as Reported by: RODOLFO VILLARREAL on 05/30/18 1512 Diltiazem HCl (Diltiazem 24Hr ER) 180 Mg Cap.er.24h, 180 MG PO DAILY Prescribed by: EMY CURRY on 12/14/20 1248 Levothyroxine Sodium (Levothyroxine Sodium) 75 Mcg Tablet, 75 MCG PO DAILY, (Reported) Entered as Reported by: LORI TORREZ on 07/05/19 1344 Metformin HCl (Metformin HCl) 1,000 Mg Tablet, 1,000 MG PO DAILY, (Reported) Entered as Reported by: VARSHA LORA on 12/13/20 1237 Metoprolol Succinate (Metoprolol Succinate) 25 Mg Tab.er.24h, 25 MG PO BID, (Reported) Entered as Reported by: VARSHA LORA on 12/13/20 1237 Pantoprazole Sodium (Pantoprazole Sodium) 40 Mg Tablet.dr, 40 MG PO DAILY, (Reported) Entered as Reported by: VARSHA LORA on 07/31/20 0926 Paroxetine HCl (Paroxetine HCl) 20 Mg Tablet, 20 MG PO HS, (Reported) Entered as Reported by: LORI TORREZ on 07/05/19 1344 Review of Systems Review of Systems Constitutional: No chills; dizziness EENTM: No Blurred Vision, No Double Vision Respiratory: Denies Cough, Denies Orthopnea Cardiovascular: See HPI, Chest Pain; Denies Edema, Denies Irregular Heart Rate; Lightheadedness; Denies Palpitations; Syncope Gastrointestinal: Denies Constipated, Denies Diarrhea, Denies Nausea Genitourinary: Denies Discharge, Denies Drainage Musculoskeletal: No back pain, No joint pain All Other Systems Reviewed Negative Unless Noted: Yes Past Bldzdse-Brppfy-Gpqzhi Hx Patient Social History Tobacco Use?: No Use of E-Cig and/or Vaping dev: No Substance use?: No Immunizations Up To Date Tetanus Booster (TDap): Unknown First/Initial COVID19 Vaccinat: 02/28 Second COVID19 Vaccination Marc: 03/31 Third COVID19 Vaccination Date: 02/28 Seasonal Allergies Seasonal Allergies: Yes (MILD) Past Medical History Surgery/Hospitalization HX: AORTIC VALVE REGURGITATION, HTN, EMERY CHOLESTEROL, NIDDM, GERD, HERNIA. Surgeries: Yes (LEFT ROTARY CUFF/R WRIST/ ILSA TKR X2, HEART VALVE REPAIR) Appendectomy, Cardiac, Section, Hysterectomy, Joint Replacement, Orthopedic Respiratory: No (CHRONIC COUGH) Currently Using BIPAP: No Cardiac: Yes (CONGESTIVE HEART FAILURE) Atrial Fibrillation, High Cholesterol, Hypertension, Syncope, Valvular Heart Disease Neurological: No Reproductive Disorders: No DIAMOND PICKER History: Hysterectomy Sexually Transmitted Disease: No HIV/AIDS: No Genitourinary: Yes UTI-Chronic Gastrointestinal: Yes Gastroesophageal Reflux, Diverticulosis, Chronic Diarrhea Musculoskeletal: Yes (BORN WITH DEGENERATIVE BONE DISEASE/ARTHRITIS) Endocrine: Yes Hypothyroidsim, Diabetes, Non-Insulin dep HEENT: Yes Cataract Loss of Vision: Denies Hearing Impairment: Denies Cancer: No (THYROID TUMORS) Skin Did You Recieve Any Treatments: No Psychosocial: Yes Anxiety, Depression Integumentary: No Blood Disorders: No Adverse Reaction/Blood Tranf: No (HAS HAD BLOOD WITH NO REACTION) Family Medical History No Pertinent Family Hx Physical Exam Vital Signs Vital Signs - First Documented Capillary Refill : Height, Weight, BMI Height: 4'11.00" Weight: 150lbs. 0.0oz. [id number]; 30.52 BMI Method:Actual General Appearance: No Apparent Distress, WD/WN HEENT: PERRL/EOMI, TMs Normal, Normal ENT Inspection, Pharynx Normal, Moist Mucous Membranes Neck: Full Range of Motion, Normal Inspection, Non Tender Respiratory: Chest Non Tender, Lungs Clear, Normal Breath Sounds, No Accessory Muscle Use, No Respiratory Distress Cardiovascular: Regular Rate, Rhythm, No Edema, Normal Peripheral Pulses Gastrointestinal: Normal Bowel Sounds, No Organomegaly, No Pulsatile Mass Extremity: Normal Capillary Refill, Normal Inspection, No Pedal Edema Neurologic/Psychiatric: Alert, Oriented x3 Skin: Normal Color, Warm/Dry Progress/Results/Core Measures Results/Orders Lab Results Laboratory Tests Test 09/07/21 19:55 Range/Units White Blood Count 8.0 4.3-11.0 10^3/uL Red Blood Count 4.62 3.80-5.11 10^6/uL Hemoglobin 13.5 11.5-16.0 g/dL Hematocrit 40 35-52 % Mean Corpuscular Volume 86 80-99 fL Mean Corpuscular Hemoglobin 29 25-34 pg Mean Corpuscular Hemoglobin Concent 34 32-36 g/dL Red Cell Distribution Width 14.1 10.0-14.5 % Platelet Count 485 H 130-400 10^3/uL Mean Platelet Volume 11.0 9.0-12.2 fL Immature Granulocyte % (Auto) 0 % Neutrophils (%) (Auto) 52 42-75 % Lymphocytes (%) (Auto) 40 12-44 % Monocytes (%) (Auto) 6 0-12 % Eosinophils (%) (Auto) 2 0-10 % Basophils (%) (Auto) 1 0-10 % Neutrophils # (Auto) 4.2 1.8-7.8 10^3/uL Lymphocytes # (Auto) 3.2 1.0-4.0 10^3/uL Monocytes # (Auto) 0.5 0.0-1.0 10^3/uL Eosinophils # (Auto) 0.1 0.0-0.3 10^3/uL Basophils # (Auto) 0.1 0.0-0.1 10^3/uL Immature Granulocyte # (Auto) 0.0 0.0-0.1 10^3/uL Prothrombin Time 15.8 H 12.2-14.7 SEC INR Comment 1.2 0.8-1.4 Activated Partial Thromboplast Time 42 H 24-35 SEC Sodium Level 139 135-145 MMOL/L Potassium Level 4.6 3.6-5.0 MMOL/L Chloride Level 105 98-107 MMOL/L Carbon Dioxide Level 20 L 21-32 MMOL/L Anion Gap 14 5-14 MMOL/L Blood Urea Nitrogen 21 H 7-18 MG/DL Creatinine 1.22 0.60-1.30 MG/DL Estimat Glomerular Filtration Rate 47 BUN/Creatinine Ratio 17 Glucose Level 170 H 70-105 MG/DL Calcium Level 9.8 8.5-10.1 MG/DL Corrected Calcium 9.6 8.5-10.1 MG/DL Magnesium Level 1.7 1.6-2.4 MG/DL Total Bilirubin 0.6 0.1-1.0 MG/DL Aspartate Amino Transf (AST/SGOT) 16 5-34 U/L Alanine Aminotransferase (ALT/SGPT) 14 0-55 U/L Alkaline Phosphatase 73 40-136 U/L Myoglobin 27.1 10.0-92.0 NG/ML Troponin I < 0.028 <0.028 NG/ML B-Type Natriuretic Peptide 224.6 H <100.0 PG/ML Total Protein 7.6 6.4-8.2 GM/DL Albumin 4.2 3.2-4.5 GM/DL Lipase 24 8-78 U/L My Orders Orders - FRAN HAHN Continuous Ekg Monitoring (09/07/21 19:49) Ekg Tracing (09/07/21 19:49) Cbc With Automated Diff (09/07/21 19:55) Magnesium (09/07/21 19:55) Chest 1 View, Ap/Pa Only (09/07/21 19:55) Comprehensive Metabolic Panel (09/07/21 19:55) Myoglobin Serum (09/07/21 19:55) Protime With Inr (09/07/21 19:55) Partial Thromboplastin Time (09/07/21 19:55) O2 (09/07/21 19:55) Lipid Panel (09/08/21 06:00) Ed Iv/Invasive Line Start (09/07/21 19:55) Lipase (09/07/21 19:55) Bnp Nance (09/07/21 19:55) Troponin I Nance (09/07/21 19:55) Nitroglycerin 0.4 Mg Btl 25's (Nitrostat (09/07/21 20:00) Aspirin Chewable Tablet (Baby Aspirin Ch (09/07/21 20:00) Orthostatic Vital Signs (Adult (09/07/21 19:55) Ed Iv/Invasive Line Start (09/07/21 21:06) Ns Iv 1000 Ml (Sodium Chloride 0.9%) (09/07/21 21:15) Ed Iv/Invasive Line Start (09/07/21 22:58) Ns Iv 1000 Ml (Sodium Chloride 0.9%) (09/07/21 23:00) Medications Given in ED Current Medications Medications Dose Ordered Sig/Demetrio Route Start Time Stop Time Status Last Admin Dose Admin Aspirin 324 mg ONCE ONCE PO 09/07/21 20:00 09/07/21 20:01 DC 09/07/21 20:06 324 MG Nitroglycerin 0.4 mg UD PRN SL 09/07/21 20:00 09/07/21 20:06 0.4 MG Vital Signs/I&O 09/07/21 09/07/21 09/07/21 19:50 19:50 20:08 Temp 36.9 Pulse 92 93 96 88 Resp 20 B/P (MAP) 144/101 (115) 127/74 (91) 104/79 (87) 97/83 (88) Pulse Ox 98 98 O2 Delivery Room Air Room Air Progress Progress Note #1: Time: 20:07 Progress Note Chest pain, syncope PE and near syncope for the past couple weeks with a clean heart cath 1 year ago. Suspect perhaps some of her medications that were elevated are causing her syncope and near syncope. We will get a troponin, set orthostatic vital signs and reevaluate after consultation with cardiology. Progress Note #2: Time: 00:05 Progress Note The patient was still little lightheaded after liter of fluids we gave her a second liter. After that we got her up and walked around and she did much better. She says she still feels a little weak but she is no longer lightheaded like she wants to pass out. We did instruct her to dangle her legs for 10 to 15 seconds after sitting up and to stand for 10 seconds before starting walking and this seemed to help her symptoms as well. She is eager to go home and follow-up in the morning with Dr. Dobbins. Initial ECG Impression Date: Sep 07, 2021 Initial ECG Impression Time: 19:53 Initial ECG Rate: 92 Initial ECG Rhythm: Normal Sinus Initial ECG Intervals: GA (220) Initial ECG Impression: Nonspecific Changes, 1st Degree AV Block Initial ECG Comparisson: Unchanged Comment Stable EKG showing no clinically relevant ST elevation or depression. First- degree block, sinus rhythm. Diagnostic Imaging Diagonstic Imaging: Xray Plain Films/CT/US/NM/MRI: chest Comments [facility], [place] NAME: MARKEL FERRERA MED REC#: [id number] PT STATUS: REG ER : 1950 PHYSICIAN: FRAN HAHN MD ADMIT DATE: 09/07/21/ER Signed Date of Exam:09/07/21 CHEST 1 VIEW, AP/PA ONLY INDICATION: Intermittent chest pain. COMPARISON: Prior study from 07/31/2019. FINDINGS: The patient is status post prior sternotomy. There is a new subcutaneous loop recorder. Enlargement of the cardiac silhouette is unchanged. There has been prior mitral valve annuloplasty. Lungs are clear. There is no edema. There is no pneumonia. There is no effusion. There is no pneumothorax. Prior surgical changes of the right shoulder are noted. IMPRESSION: Previous operative changes of sternotomy and mitral valve annuloplasty with stable cardiomegaly. Lungs are clear without pneumonia or edema. Dictated by: Dictated on workstation # [id number] Dict: 09/07/212012 Trans: 09/07/212015 [id number] Interpreted by: BARBARA CURIEL MD Electronically signed by: BARBARA CURIEL MD 09/07/212015 Reviewed: Reviewed by Me Consults : Consulting Physician: MATTHEW DOBBINS MD Consults Notes Discussed the case with her fur machine operator who is familiar with her. She had a clean catheterization a year ago and no history of coronary disease. It is felt that her orthostatic vital signs were positive and she had recently had her medications increased. Dr. Dobbins recommend we have her hold the diltiazem give her a liter of fluids and follow-up tomorrow or the following day in the clinic with him. Departure Impression Primary Impression: Orthostatic syncope Additional Impression: Chest pain Qualified Codes: R07.9 - Chest pain, unspecified Disposition: 01 HOME, SELF-CARE Condition: Stable Departure-Patient Inst. Decision time for Depature: 21:05 Referrals: TRISTIAN POOLE MD (PCP/Family) Primary Care Physician MATTHEW DOBBINS MD Patient Instructions: Chest Pain, Adult ED, Syncope (Fainting) (DC) Add. Discharge Instructions: Make sure you are drinking plenty of fluids. Stop taking the diltiazem/Cardizem. Call Dr. Dobbins first thing in the morning to be seen either Wednesday or Wednesday in his clinic. Return to the ER for severe, intractable chest pain. Copy Copies To 1: MATTHEW DOBBINS MD, TITUS J Sep 07, 2021 20:00
[2021-09-07 20:02] LABS: BASOPHILS # (AUTO) 0.1 10^3/uL (0.0-0.1); BASOPHILS % (AUTO) 1 % (0-10); EOSINOPHILS # (AUTO) 0.1 10^3/uL (0.0-0.3); EOSINOPHILS % (AUTO) 2 % (0-10); HEMATOCRIT 40 % (35-52); HEMOGLOBIN 13.5 g/dL (11.5-16.0); LYMPHOCYTES # (AUTO) 3.2 10^3/uL (1.0-4.0); LYMPHOCYTES % (AUTO) 40 % (12-44); MEAN CORPUSCULAR HEMOGLOBIN 29 pg (25-34); MEAN CORPUSCULAR HGB CONC 34 g/dL (32-36); MEAN CORPUSCULAR VOLUME 86 fL (80-99); MONOCYTES # (AUTO) 0.5 10^3/uL (0.0-1.0); MONOCYTES % (AUTO) 6 % (0-12); NEUTROPHILS # (AUTO) 4.2 10^3/uL (1.8-7.8); NEUTROPHILS % (AUTO) 52 % (42-75); PLATELET COUNT 485 10^3/uL (130-400)
[2021-09-07 20:08] VITALS: BP_SYST 104; BP_SYST 127; BP_SYST 97; BP_DIAS 74; BP_DIAS 79; BP_DIAS 83
--- NOTE | 2021-09-07 20:16 | Diagnostic Imaging Report ---
INDICATION: Intermittent chest pain. COMPARISON: Prior study from 07/31/2019. FINDINGS: The patient is status post prior sternotomy. There is a new subcutaneous loop recorder. Enlargement of the cardiac silhouette is unchanged. There has been prior mitral valve annuloplasty. Lungs are clear. There is no edema. There is no pneumonia. There is no effusion. There is no pneumothorax. Prior surgical changes of the right shoulder are noted. IMPRESSION: Previous operative changes of sternotomy and mitral valve annuloplasty with stable cardiomegaly. Lungs are clear without pneumonia or edema. Dictated by: Dictated on workstation # [id number]
[2021-09-07 20:17] LABS: INR 1.2 (0.8-1.4); PROTHROMBIN TIME PATIENT 15.8 SEC (12.2-14.7)
[2021-09-07 20:22] LABS: ALBUMIN 4.2 GM/DL (3.2-4.5); BILIRUBIN,TOTAL 0.6 MG/DL (0.1-1.0); CALCIUM 9.8 MG/DL (8.5-10.1); CREATININE SERUM 1.22 MG/DL (0.60-1.30); MAGNESIUM 1.7 MG/DL (1.6-2.4); POTASSIUM 4.6 MMOL/L (3.6-5.0); TOTAL PROTEIN 7.6 GM/DL (6.4-8.2)
[2021-09-07] MEDS ORDERED: NS IV 1000 ML 1,000 ML IV SCH ×2 (21:15→23:00)
[2021-09-08 00:26] VITALS: BP 129/73
== END 2021-09-08 00:24 | disposition home or self-care (01) ==
LOC: EDUNIT# 19:44 → ER 19:46
DX: R07.89 Other chest pain (principal); I95.1 Orthostatic hypotension; Z86.79 Personal history of other diseases of the circulatory system; Z79.01 Long term (current) use of anticoagulants; Z95.9 Presence of cardiac and vascular implant and graft, unspecified
CPT/HCPCS: 36415; 71045; 80053; 83690; 83735; 83874; 83880; 84484; 85025; 85610; 85730; 93005

== ENCOUNTER → 2021-09-09 | Outpatient (CLI) | payer MEDICARE, OTHER | LOC: CARD 13:30 | PROVIDERS: ATTEND Internal Medicine Cardiovascular Disease | DX: I34.0 Nonrheumatic mitral (valve) insufficiency (principal); I11.9 Hypertensive heart disease without heart failure | CPT/HCPCS: 93306 ==

== ENCOUNTER → 2021-09-10 | Outpatient (CLI) | payer MEDICARE, OTHER ==
[~2021-09-10] VITALS: Ht 149 cm; Wt 69.0 kg
[~2021-09-10] MED LIST changes: +CATHETER FLUSH 10 ML SYR IVP PRN; +REGADENOSON 0.4 MG/5 ML SYR (LEXISCAN) IV ONE; +meTOprolol 5 MG/5 ML (LOPRESSOR) VIAL IV ONE; +meTOprolol 5 MG/5 ML (LOPRESSOR) VIAL ONE
[2021-09-10 13:19] VITALS: BP 138/84
--- NOTE | 2021-09-11 07:45 | Cardiology Stress Test Report ---
Stress Test Report Date of Procedure/Referring: Date of Procedure: Sep 10, 2021 PCP Tristian Poole MD Admitting Physician Admitting Physician: Attending Physician: Seng Dobbins MD Indications: cp Baseline Heart Rate: 102 Baseline Blood Pressure: Blood Pressure Systolic: 138 Blood Pressure Diastolic: 84 Baseline Vitals Vital Signs Date Time Temp Pulse Resp B/P (MAP) Pulse Ox O2 Delivery O2 Flow Rate FiO2 09/10/21 13:19 102 138/84 (102) Baseline EKG: Baseline EKG: a fib Summary After explaining the procedure to the patient, she signed a consent and then brought to the stress nuclear laboratory. Patient received 0.4 mg Lexiscan for stress test, ECG, heart rate and blood pressure were monitored continuously. Patient developed an episode of tachycardia with a heart rate up to 190 lasted for about 5 minutes, received 5 mg of IV Lopressor with resolution of her tachycardia and shortness of breath and chest pain. Resting and stress dose of radio tracer were injected, imaging was acquired and reviewed in short axis, horizontal long axis and vertical long axis views. TID: 1.39 SSS: 9 SDS: 5 EF: 63 1. Patient tolerated Lexiscan well, developed chest pain and shortness of breath and tachycardia 2. Transient episode of atrial fibrillation with rapid ventricular response with a heart rate up to 190 responded to 5 mg IV Lopressor 3. Baseline atrial fibrillation persisted during test with nondiagnostic EKG changes. 4. Reversible ischemia involving the mid to apical anterolateral and inferolateral wall 5. Transient ischemic dilatation 1.39 6. Normal left ventricular size with ejection fraction 63%, gated images are unreliable due to underlying atrial fibrillation Copy Copies To 1: TRISTIAN POOLE MD, BASHAR J MD Sep 11, 2021 07:45
== END ==
LOC: CARD 11:53
PROVIDERS: ATTEND Internal Medicine Cardiovascular Disease
DX: R07.9 Chest pain, unspecified (principal); R06.02 Shortness of breath; R00.0 Tachycardia, unspecified
CPT/HCPCS: 78452; 93017; A9502

== ENCOUNTER 2021-09-24 11:00 | Day surgery (SDC) | payer MEDICARE, OTHER ==
[2021-09-24] VITALS (20 sets, daily range): BP systolic 96–144; BP diastolic 55–99
[~2021-09-24] VITALS: Ht 149.9 cm; Wt 69.9 kg
[2021-09-24 10:01] LABS: HEMATOCRIT 35 % (35-52); HEMOGLOBIN 11.6 g/dL (11.5-16.0); MEAN CORPUSCULAR HEMOGLOBIN 28 pg (25-34); MEAN CORPUSCULAR HGB CONC 33 g/dL (32-36); MEAN CORPUSCULAR VOLUME 86 fL (80-99); MEAN PLATELET VOLUME 10.5 fL (9.0-12.2); PLATELET COUNT 391 10^3/uL (130-400); WHITE BLOOD COUNT 9.8 10^3/uL (4.3-11.0)
[2021-09-24 10:15] LABS: INR 1.1 (0.8-1.4); PROTHROMBIN TIME PATIENT 14.4 SEC (12.2-14.7)
[2021-09-24 10:22] LABS: ALBUMIN 4.3 GM/DL (3.2-4.5); BILIRUBIN,TOTAL 0.3 MG/DL (0.1-1.0); CALCIUM 9.4 MG/DL (8.5-10.1); CREATININE SERUM 1.15 MG/DL (0.60-1.30); TOTAL PROTEIN 7.4 GM/DL (6.4-8.2)
[~2021-09-24 11:00] MED LIST changes: +CATHETER FLUSH 10 ML SYR IV PRN; -CATHETER FLUSH 10 ML SYR IVP PRN; +HEParin (CATH LAB) 2,000 ML IV ONE; +HOLD METFORMIN - RECEIVED CONTRAST 20 ML VIAL IV SCH; +IOHEXOL 350 MG/ML 100 ML (OMNIPAQUE 350) VIAL IV ONE; +LIDOCAINE 1% INJ 20 ML VIAL ONE; +LIDOCAINE 2% VISCOUS 15 ML UDC ONE; +NS 100 ML (IVPB) BAG IV ONE; +NS IV 1000 ML 1,000 ML IV SCH; +NS IV 1000 ML 1,000 ML ONE; -REGADENOSON 0.4 MG/5 ML SYR (LEXISCAN) IV ONE; -meTOprolol 5 MG/5 ML (LOPRESSOR) VIAL IV ONE; -meTOprolol 5 MG/5 ML (LOPRESSOR) VIAL ONE; +proPOfol 200 MG/20 ML (DIPRIVAN) VIAL IV ONE
--- NOTE | 2021-09-24 11:34 | Cardiac Procedure Note-CS/ASA ---
Pre-Procedure Note Pre-Op Procedure Note Date of Available H&P: Sep 16, 2021 Date H&P Reviewed: Sep 24, 2021 Time H&P Reviewed: 11:00 History & Physical: H&P Reviewed, Patient Examed, No changes noted Pre-Operative Diagnosis: Coronary artery disease Conscious Sedation Pre-Proced Time 11:34 ASA Score 3 For ASA 3 and 4: Consider anesthesia and medical clearance. Also, for patients with a history of failed moderate sedation consider anesthesia. Airway Lungs Heart ASA score ASA 1: a normal healthy patient ASA 2: a patient with a mild systemic disease (mid diabetes, controlled hypertension, obesity x ASA 3: a patient with a severe systemic disease that limits activity (angina, COPD, prior Myocardial infarction) ASA 4: a patient with an incapacitating disease that is a constant threat to life (CHF, renal failure) ASA 5: a moribund patient not expected to survive 24 hrs. (ruptured aneurysm) ASA 6: a declared brain- patient whose organs are being harvested. For emergent operations, add the letter E after the classification Mallampati Classification Grade 3 Sedation Plan Analgesia, Amnesia, Plan communicated to team members, Discussed options with patient/fam, Discussed risks with patient/fam The patient is an appropriate candidate to undergo the planned procedure, sedation, and anesthesia. The patient immediately re-assessed prior to indication. MATTHEW VILLALOBOS MD Sep 24, 2021 11:34
[2021-09-24] MEDS ORDERED: MIDAZOLAM 5 MG/5 ML (VERSED) VIAL ONE ×2 (11:35→15:41)
[2021-09-24] MEDS ORDERED: HEParin 1000 UNIT/ML (10ML VIAL) FOR BOLUS ONE (11:35)
[2021-09-24] MEDS ORDERED: fentaNYL INJ 100 MCG/2 ML AMP ONE ×2 (11:35→15:41)
[2021-09-24] MEDS ORDERED: NITRO DRIP 25000 MCG/D5W 0 ML IV ONE (11:35)
[2021-09-24] MEDS ORDERED: VERAPAMIL 5 MG/2 ML (CALAN) VIAL IV ONE (11:35)
--- NOTE | 2021-09-24 11:37 | Cardioversion ---
Cardioversion PROCEDURE PHYSICIAN: Matthew Dobbins DATE OF PROCEDURE: 09/24/21 DIRECT EXTERNAL ELECTRICAL CARDIOVERSION: Indications: Atrial Fibrillation with rapid ventricular rate Preoperative diagnoses: Atrial Fibrillation with rapid ventricular rate Postoperative diagnosis: Sinus rhythm, Successful Electrical Cardioversion History: 71-year-old lady with paroxysmal atrial fibrillation and sinus node dysfunction, she was seen with the EP at , had an abnormal stress test and scheduled for cardiac cath today, we are planning to proceed with KENDALL and electrical cardioversion then proceeding with dual chamber pacemaker implantation tomorrow. Anesthesia: By Anesthesia services Complications: None Specimen: None Contrast: 0 Flouroscopy: none Procedure Details: The patient was brought the laborer pie bakery after informed consent was taken, all the risks and complications were explained including the risk of stroke. Electrical cardioversion was carried out with anesthesia support with propofol. 200 joules of synchronized shock was delivered through external patches which promptly restored sinus rhythm. The patient tolerated the procedure well. Conclusions: Successful DC cardioversion and terminating atrial fibrillation MATTHEW DOBBINS MD Sep 24, 2021 11:37
[2021-09-24] MEDS ORDERED: NS IV 1000 ML 1,000 ML ONE ×3 (11:55→16:29)
[2021-09-24] MEDS ORDERED: NS IV 1000 ML 1,000 ML IV ONE ×2 (12:15→17:45)
--- NOTE | 2021-09-24 12:24 | Diagnostic Imaging Report ---
EXAMINATION: Chest 1 view HISTORY: Chest pain. Pre-heart catheterization. COMPARISON: 09/07/2021. FINDINGS: The lung volumes are normal. No focal consolidation is seen. No large pleural effusion or pneumothorax is seen. Stable cardiac silhouette with sternotomy wires present. A loop recorder is noted overlying the cardiac silhouette.. No acute osseous abnormality is seen. Prior right shoulder arthroplasty changes are seen. IMPRESSION: 1. No acute pleuroparenchymal process. Dictated by: Dictated on workstation # [id number]
[2021-09-24] MEDS ORDERED: PATIENT MAY USE OWN MEDS, ALL PO SCH ×2 (12:30→17:30)
--- NOTE | 2021-09-24 12:41 | Cardiac Cath Report ---
Cardiac Cath Report Physician (s)/Mechanical Sound Technician (s) Physician MATTHEW VILLALOBOS MD Pre-Procedure Diagnosis Pre-Procedure Diagnosis: Coronary artery disease Post-Procedure Note Procedure Start Date: Sep 24, 2021 Name of Procedure: Coronary angiogram Findings/Procedure Note PROCEDURE NOTE: 71-year-old lady with history of mitral valve replacement, paroxysmal atrial fibrillation, had an abnormal stress test, scheduled for cardiac catheterization possible PTCA. After explaining the procedure to the patient, all pros and cons were explained, all questions were answered. The patient signed the consent and then she was placed on the cardiac catheterization laboratory. Groin was prepped SL fashion local anesthesia was used. Sheath placed in the right femoral artery. Niesha right and left catheter were used to access the coronary system. At the end of the procedure the sheath was removed. Closure device was deployed FINDINGS: Hemodynamics LV was not measured, did not cross the aortic valve Aorta 139/70 mean of 95 ANATOMY: Left Main is free of obstructive disease Left Anterior Descending has mild disease nonobstructive disease Left Circumflex has mild disease nonobstructive disease Right Coronary Artery has mild disease nonobstructive disease CONCLUSION: 1. Mild coronary artery disease nonobstructive disease DISCUSSION AND RECOMMENDATION: Continue with medical therapy. No intervention is warranted Anesthesia Type: Conscious Sedation Estimated blood loss (mL): 10 ml Contrast Amount: 25 ml Total Radiation Dose: 189 mGy Post-Procedure Diagnosis Post-operative diagnosis: Paroxysmal atrial fibrillation Sinus node dysfunction Mitral valve replacement Hypertension. MATTHEW VILLALOBOS MD Sep 24, 2021 12:41
[2021-09-24] MEDS ORDERED: HEParin (CATH LAB) 1,000 ML IV ONE (15:32)
[2021-09-24] MEDS ORDERED: LIDOCAINE 1% INJ 20 ML VIAL ONE (15:32)
[2021-09-24] MEDS ORDERED: ceFAZolin INJECTION 1,000 MG ONE (15:41)
--- NOTE | 2021-09-24 17:23 | Cardiac Procedure Note-CS/ASA ---
Pre-Procedure Note Pre-Op Procedure Note Date of Available H&P: Sep 16, 2021 Date H&P Reviewed: Sep 24, 2021 Time H&P Reviewed: 15:00 History & Physical: H&P Reviewed, Patient Examed, No changes noted Pre-Operative Diagnosis: Coronary artery disease Conscious Sedation Pre-Proced Time 15:00 ASA Score 2 For ASA 3 and 4: Consider anesthesia and medical clearance. Also, for patients with a history of failed moderate sedation consider anesthesia. Airway Lungs Heart ASA score ASA 1: a normal healthy patient ASA 2: a patient with a mild systemic disease (mid diabetes, controlled hypertension, obesity x ASA 3: a patient with a severe systemic disease that limits activity (angina, COPD, prior Myocardial infarction) ASA 4: a patient with an incapacitating disease that is a constant threat to life (CHF, renal failure) ASA 5: a moribund patient not expected to survive 24 hrs. (ruptured aneurysm) ASA 6: a declared brain- patient whose organs are being harvested. For emergent operations, add the letter E after the classification Mallampati Classification Grade 3 Sedation Plan Analgesia, Amnesia, Plan communicated to team members, Discussed options with patient/fam, Discussed risks with patient/fam The patient is an appropriate candidate to undergo the planned procedure, sedation, and anesthesia. The patient immediately re-assessed prior to indication. MATTHEW VILLALOBOS MD Sep 24, 2021 17:23
--- NOTE | 2021-09-24 17:29 | Permanent Pacemaker Implant ---
Dual Chamber Pacemaker Implant PROCEDURE PHYSICIAN: Seng Villalobos DUAL CHAMBER PACEMAKER IMPLANTATION: DATE OF PROCEDURE: 09/24/21 REFERRING PHYSICIAN: Dr. Sorin Montgomery INDICATION: Sinus node dysfunction, tachybradycardia episode PREOPERATIVE DIAGNOSIS: Sinus node dysfunction POSTOPERATIVE DIAGNOSIS: Sinus node dysfunction HISTORY: 71-year-old lady with paroxysmal atrial fibrillation, has underlying sinus node dysfunction with tachybradycardia episode, become severely bradycardic then episodes of severe tachycardia. Tolerating amiodarone. Underwent KENDALL with electrical cardioversion earlier today and we proceeded with dual chamber pacemaker implantation after consulting with Dr. Montgomery. Dual-chamber permanent pacemaker was recommended. PROCEDURE PERFORMED: 1. Dual-chamber permanent pacemaker implantation. 2. Fluoroscopy. 3. Central venous access. ANESTHESIA: Local anesthesia, conscious sedation. COMPLICATIONS: None. ESTIMATED BLOOD LOSS:20 mL. SPECIMENS: None. ORAL ANTICOAGULATION: None. FLUOROSCOPY TIME: FLUOROSCOPY DOSE: CONTRAST DOSE: PROCEDURE DETAILS: The patient is a 71 female sinus node dysfunction, tachybradycardia episode. And after all of the patients questions were answered, the patient was brought to the EP Lab. The patient's left chest was prepped and draped in sterile fashion. A 2 inch horizontal incision was made 1 cm below the clavicle and dissection carried down to the pectoralis fascia. Using the modified Seldinger technique and under fluoroscopy guidance, the anterior aspect of the left axillary vein was accessed 2 times. The J wires were secured to the drapes with a mosquito clamp. A 7-Austrian sheath was introduced over one of the J-wires. The RV lead was then inserted. The RV lead was directed across the tricuspid valve to the apical septal portion of the right ventricle. The position was checked in YVONNE and SORTO views. The screw was deployed and the lead connected to the net programmer analyst. Close sensing and pacing thresholds were obtained. Diaphragmatic pacing was ruled out. The lead was secured with 2-0 silk ties to the underlying muscle and fascia. Next, a 7-Austrian sheath was introduced through the remaining J-wire. An atrial lead was then introduced and guided to the level of the right appendage. The screw was deployed and the lead was connected to the interrogator. Good sensing and pacing thresholds were obtained. Diaphragmatic pacing was ruled out. The leads were secured with 2-0 silk ties to the underlying muscle and fascia. The leads were connected to the device in a hermetic fashion. The device and leads were placed in the pocket. Aggressive irrigation with saline solution was done. The device was secured to the underlying muscle and fascia with a 2-0 silk tie. interrogation of the device revealed good integrity of all the leads and good connections. The wound was then closed using 2 layers. The first layer was interrupted 2-0 absorbable Vicryl suture. The last layer was a single subcuticular layer with 4- 0 Vicryl suture. Half inch Steri-Strips and a small dressing were then applied to the wound. The patient tolerated the procedure well and was returned to the recovery room in stable condition with stable vital signs. DEVICE INFORMATION: HALLE XT DR MRI [id number] RA LEAD: [id number] RV LEAD: [id number] PER-OPERATIVE DEVICE INTERROGATION: Good sensing and capture activity IMMEDIATE POSTOPERATIVE DEVICE INTERROGATION: Right atrium, P wave 1.9 mV, impedance 437, pacing threshold 0.5 V at 0.4 ms Right ventricle, R wave 9.3 mV, pacing impedance 722, pacing threshold 0.5 V at 0.4 ms. PLAN: The patient transferred to the ICU. We will continue with two more doses of IV antibiotics. We will check a chest x-ray and interrogate the device in the morning. The patient will continue on oral antibiotics for 5 days. CONCLUSION: Successful implantation of dual-chamber pacemaker with no complication FINAL DIAGNOSIS: Paroxysmal atrial fibrillation Sinus node dysfunction Coronary artery disease Hypertension SENG VILLALOBOS MD Sep 24, 2021 17:29
[2021-09-24] MEDS ORDERED: NS IV 1000 ML 1,000 ML IV SCH (17:30)
--- NOTE | 2021-09-24 18:26 | Diagnostic Imaging Report ---
INDICATION: Cardiac dysrhythmia AP view of the chest is obtained. Since 09/24/2021, there has been placement of left anterior chest wall dual-chamber cardiac pacemaker. Surgical findings are noted with cardiac valve replacement. There is mild cardiomegaly and pulmonary venous congestion without overt edema or pneumothorax. IMPRESSION: Cardiomegaly and pulmonary venous congestion without other evidence of complication post pacemaker placement. Dictated by: Dictated on workstation # [id number]
[2021-09-24] MEDS: NS IV 1000 ML 1,000 ML IV SCH ×2 (18:48→21:12)
[2021-09-24] MEDS ORDERED: ASPIRIN E.C. 81 MG (ECOTRIN) TAB PO SCH (21:00)
[2021-09-24] MEDS ORDERED: PARoxetine 20 MG (PAXIL) TAB PO SCH (21:00)
[2021-09-24] MEDS: APIXABAN 5 MG (ELIQUIS) TABLET PO SCH (21:00)
[2021-09-24] MEDS: ceFAZolin INJECTION 1,000 MG in NS (IVPB) 50 ML IV SCH (21:11)
[2021-09-24] MEDS: AMIODARONE 200 MG (CORDARONE) TAB PO SCH (21:12)
[2021-09-25] VITALS: BP 140/73
[2021-09-25 04:00] VITALS: BP 110/52
[2021-09-25 05:07] LABS: HEMATOCRIT 29 % (35-52); HEMOGLOBIN 9.1 g/dL (11.5-16.0); MEAN CORPUSCULAR HEMOGLOBIN 28 pg (25-34); MEAN CORPUSCULAR HGB CONC 32 g/dL (32-36); MEAN CORPUSCULAR VOLUME 89 fL (80-99); PLATELET COUNT 249 10^3/uL (130-400)
[2021-09-25] MEDS: ceFAZolin INJECTION 1,000 MG in NS (IVPB) 50 ML IV SCH (05:26)
[2021-09-25 05:28] LABS: ALBUMIN 3.4 GM/DL (3.2-4.5); POTASSIUM 4.4 MMOL/L (3.6-5.0)
[2021-09-25 05:29] LABS: CALCIUM 8.7 MG/DL (8.5-10.1)
[2021-09-25 05:30] LABS: TOTAL PROTEIN 5.8 GM/DL (6.4-8.2)
[2021-09-25 05:32] LABS: BILIRUBIN,TOTAL 0.4 MG/DL (0.1-1.0)
[2021-09-25 05:34] LABS: CREATININE SERUM 0.9 MG/DL (0.60-1.30)
[2021-09-25] MEDS ORDERED: METF-399 PO (05:38)
[2021-09-25] MEDS ORDERED: CEFU500T63 PO (05:38)
--- NOTE | 2021-09-25 05:38 | Discharge Inst-Post CATH ---
Discharge Inst-CATH/EP Problems Reviewed?: Yes Post Cardiac Cath/EP D/C Inst Follow Up/Plan Appointment with Dr Dobbins in one week <b>CARDIAC CATH/EP PROCEDURE DISCHARGE INSTRUCTIONS</b> ACTIVITY * Go Home directly and rest. * Limit activity of the leg (or wrist if it was used) for 7 days including aerobics, swimming, jogging, bicycling, etc. * Restrict stair-climbing for 7 days if possible, if not, climb up with your non-cath leg, then bring together on the same step. * Avoid lifting, pushing, pulling or excessive movement of the affected extremity for 7 days. * Customary sexual activity may be resumed after 2 days-use caution not to use a position that strains or causes pain to the affected extremity. * No driving for 24 hours. * NO SMOKING. * Avoid straining for bowel movements for 7 days. * Gentle walking on level ground is allowed. * Returning to work will depend on the type of procedure and the results. Your doctor will discuss this with you. CALL YOUR DOCTOR FOR ANY OF THE FOLLOWING: *If bleeding from the puncture site occurs- Apply gentle pressure to site with clean cloth and call your doctor or EMS. * If a knot or lump forms under the skin, increases in size, or causes pain. * If bruising appears to be worsening or moving further down your leg instead of disappearing. * Temperature above 101 F. CARE OF YOUR GROIN INCISION; * Bruising or purple discoloration of the skin near the puncture site is common. * You may shower only, no bathtub bathing for 5 days. Be careful to avoid slipping as your leg may feel stiff. * If a closure device was used on your femoral artery, please see the attached guide regarding care of the device and your leg. * Leave dressing on FOR 24 hours. CARE OF YOUR WRIST INCISION; * Bruising or purple discoloration of the skin near the puncture site is common. * You may shower. * DO NOT submerge wrist. * Leave dressing on FOR 24 hours. MATTHEW DOBBINS MD Sep 25, 2021 05:38
[2021-09-25] MEDS ORDERED: LEVOTHYROXINE 75 MCG (LEVOTHROID) TABLET PO SCH (06:30)
[2021-09-25] MEDS ORDERED: LIDOCAINE/EPI 2% 1:200,00 (XYLOCAINE) 10 ML VIAL ONE (07:33)
--- NOTE | 2021-09-25 07:35 | Cardiology Progress Note ---
Subjective Date Seen by Provider: Sep 25, 2021 Time Seen by Provider: 07:33 Subjective/Events-last exam Patient was seen at bedside, feeling some pressure in her chest but no chest pain. Review of Systems General: No Chills, No Night Sweats, No Fatigue, No Malaise, No Appetite, No Other HEENT: No Head Aches, No Visual Changes, No Eye Pain, No Ear Pain, No Dysphasia, No Sinus Congestion, No Post Nasal Drip, No Sore Throat, No Other Pulmonary: No Dyspnea, No Cough, No Pleuritic Chest Pain, No Other Cardiovascular: No: Chest Pain, Palpitations, Orthopnea, Paroxysmal Noc. Dyspnea, Edema, Lt Headedness, Other Objective-Cardiology Exam Last Set of Vital Signs Vital Signs 09/24/21 09/25/21 09/25/21 11:21 03:45 04:00 Temp 36.1 Pulse 60 Resp 15 B/P (MAP) 110/52 (71) Pulse Ox 96 O2 Delivery Room Air O2 Flow Rate 10.00 I&O Intake and Output 09/25/21 00:00 Intake Total 4250 ml Output Total 350 ml Balance 3900 ml Intake Oral 200 ml IV Total 4050 ml Output Urine Total 350 ml Daily Weight Change Yes, 2-13 lbs General: Alert, Oriented X3, Cooperative HEENT: Atraumatic, PERRLA Neck: Supple, No JVD, No Thyromegaly Lungs: Clear to Auscultation, Normal Air Movement Heart: Regular Rate, Normal S1, Normal S2, No Murmurs Abdomen: Normal Bowel Sounds, Soft, No Tenderness, No Hepatosplenomegaly, No Masses Extremities: No Clubbing, No Cyanosis, No Edema, Normal Pulses, No Tenderness/Swelling Skin: No Rashes, No Breakdown, No Significant Lesion Neuro: Normal Gait, Normal Speech, Strength at 5/5 X4 Ext, Normal Tone, Sensation Intact Psych/Mental Status: Mental Status NL, Mood NL Results Lab Laboratory Tests 09/24/21 09:52 09/25/21 04:45 A/P-Cardiology Admission Diagnosis Paroxysmal atrial fibrillation Sinus node dysfunction Chest pain Hypertension Hyperlipidemia Assessment/Plan Paroxysmal atrial fibrillation, sinus node dysfunction, tachybradycardia syndrome. Status post KENDALL cardioversion Status post dual-chamber pacemaker implantation Starting on amiodarone and continue to monitor heart rate and blood pressure. History of loop monitor, planning to explant the monitor today Dr. Mascorro was consulted Chest pain, cardiac catheterization was carried out on September 24, 2021, mild coronary artery disease nonobstructive disease Diabetes mellitus, hold metformin for 48 hours Hypertension, monitor blood pressure Hyperlipidemia, monitor lipids MATTHEW VILLALOBOS MD Sep 25, 2021 07:35
[2021-09-25 08:00] VITALS: BP 116/63
--- NOTE | 2021-09-25 08:18 | Consultation - Surgery ---
JORGE VANEGAS 09/25/21 0818: History of Present Illness History of Present Illness Patient Consulted On(analy/time) 09/25/21 08:13 Date Seen by Provider: Sep 25, 2021 Time Seen by Provider: 08:13 Reason for Visit: Pacemaker placement and removal of loop recorder History of Present Illness Consult requested by Dr. Dobbins 71yo F with h/o paroxysmal atrial fibrillation and s/p pacemaker presents for removal of loop recorder. Pt states that she was referred to via [facility] for pacemaker placement by her physician. Pt states that she has mild surgical site pain but otherwise has no other complaints. Pt states that she is voiding and having bowel movements. Pt denies CP, SOB, n/v, and sweats. Allergies and Home Medications Allergies Coded Allergies: vancomycin (Verified Allergy, Severe, HIVES, DIFFICULTY BREATHING, 07/05/19) Penicillins (Verified Allergy, Unknown, 09/24/21) Patient Home Medication List Home Medication List Reviewed: Yes Acetaminophen (Tylenol) 325 Mg Tablet, 650 MG PO Q6H PRN for PAIN-MILD (1-4), (Reported) Entered as Reported by: BANDAR LOWERY on 09/24/21 1036 Last Action: Reviewed Amiodarone HCl (Amiodarone HCl) 200 Mg Tablet, 200 MG PO BID, (Reported) Entered as Reported by: BANDAR LOWERY on 09/24/21 1036 Last Action: Continued Apixaban (Eliquis) 5 Mg Tablet, 5 MG PO BID, (Reported) Entered as Reported by: BANDAR LOWERY on 09/24/21 1036 Last Action: Continued Atorvastatin Calcium (Atorvastatin Calcium) 20 Mg Tablet, 20 MG PO HS, (Reported) Entered as Reported by: RODOLFO VILLARREAL on 05/30/18 1512 Last Action: Continued Cefuroxime Axetil (Cefuroxime) 500 Mg Tablet, 500 MG PO BID Prescribed by: MATTHEW DOBBINS on 09/25/21 0538 Levothyroxine Sodium (Levothyroxine Sodium) 75 Mcg Tablet, 75 MCG PO DAILY, (Reported) Entered as Reported by: LORI TORREZ on 07/05/19 1344 Last Action: Continued Lisinopril (Lisinopril) 20 Mg Tablet, 20 MG PO DAILY, (Reported) Entered as Reported by: BANDAR LOWERY on 09/24/21 1036 Last Action: Continued Metformin HCl (Metformin HCl) 1,000 Mg Tablet, 1,000 MG PO DAILY Prescribed by: MATTHEW DOBBINS on 09/25/21 0538 Metoprolol Succinate (Metoprolol Succinate) 25 Mg Tab.er.24h, 25 MG PO BID, (Reported) Entered as Reported by: VARSHA LORA on 12/13/20 1237 Last Action: Continued Pantoprazole Sodium (Pantoprazole Sodium) 40 Mg Tablet.dr, 40 MG PO DAILY, (Reported) Entered as Reported by: VARSHA LORA on 07/31/20 0926 Last Action: Continued Paroxetine HCl (Paroxetine HCl) 20 Mg Tablet, 20 MG PO HS, (Reported) Entered as Reported by: LORI TORREZ on 07/05/19 1344 Last Action: Continued Discontinued Medications Acetaminophen (Tylenol) 325 Mg Tablet, 325 MG PO BID PRN for PAIN-MILD (1-4), (Reported) Discontinued Reason: Duplicate Order Entered as Reported by: VARSHA LORA on 07/31/20 0927 Last Action: Discontinued Amiodarone HCl (Amiodarone HCl) 200 Mg Tablet, 200 MG PO UD Discontinued Reason: Duplicate Order Prescribed by: MATTHEW DOBBINS on 01/08/21 1120 Last Action: Discontinued Apixaban (Eliquis) 5 Mg Tablet, 5 MG PO BID Discontinued Reason: Duplicate Order Prescribed by: EMY CURRY on 12/14/20 1248 Last Action: Discontinued Aspirin (Aspirin EC) 81 Mg Tablet.dr, 81 MG PO HS, (Reported) Entered as Reported by: DIRK BANDA on 11/29/17 1236 Last Action: Continued Diltiazem HCl (Diltiazem 24Hr ER) 180 Mg Cap.er.24h, 180 MG PO DAILY Discontinued Reason: No Longer Taking Prescribed by: EMY CURRY on 12/14/20 1248 Last Action: Discontinued Past Gfczwpt-Twqyaz-Hgoifd Hx Patient Social History 2nd Hand Smoke Exposure: No Recent Hopitalizations: No Alcohol Use?: No Have you traveled recently?: No Immunizations Up To Date Tetanus Booster (TDap): Unknown Date of Pneumonia Vaccine: Apr 08, 2020 Date of Influenza Vaccine: Dec 02, 2020 Seasonal Allergies Seasonal Allergies: Yes (MILD) Surgeries History of Surgeries: Yes (LEFT ROTARY CUFF/R WRIST/ ILSA TKR X2, HEART VALVE REPAIR) Surgeries: Appendectomy, Cardiac, Section, Hysterectomy, Joint Replacement, Orthopedic Respiratory History of Respiratory Disorde: No (CHRONIC COUGH) Cardiovascular History of Cardiac Disorders: Yes (CONGESTIVE HEART FAILURE) Cardiac Disorders: Atrial Fibrillation, High Cholesterol, Hypertension, Syncope, Valvular Heart Disease Neurological History of Neurological Disord: No Neurological Disorders: Vertigo Reproductive System Hx Reproductive Disorders: No Sexually Transmitted Disease: No HIV/AIDS: 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 Genitourinary History of Genitourinary Disor: Yes Genitourinary Disorders: UTI-Chronic Gastrointestinal History of Gastrointestinal Di: Yes Gastrointestinal Disorders: Gastroesophageal Reflux, Diverticulosis, Chronic Diarrhea Musculoskeletal History of Musculoskeletal Dis: Yes (BORN WITH DEGENERATIVE BONE DISEASE/ARTHRITIS) Endocrine History of Endocrine Disorders: Yes Endocrine Disorders: Hypothyroidsim, Diabetes, Non-Insulin dep HEENT History of HEENT Disorders: Yes HEENT Disorders: Cataract Loss of Vision: Denies Hearing Impairment: Denies Cancer History of Cancer: No (THYROID TUMORS) Cancer: Skin Psychosocial History of Psychiatric Problem: Yes Behavioral Health Disorders: Anxiety, Depression Integumentary History of Skin or Integumenta: No Blood Transfusions History of Blood Disorders: No Adverse Reaction to a Blood Tr: No (HAS HAD BLOOD WITH NO REACTION) Family Medical History Significant Family History: No Pertinent Family Hx Review of Systems-General Constitutional: No chills, No diaphoresis EENTM: No hearing loss, No ear pain Respiratory: No cough, No dyspnea on exertion Cardiovascular: No edema, No syncope Gastrointestinal: No abdominal pain, No nausea, No vomiting Genitourinary: No decreased output, No discharge Musculoskeletal: No gout, No joint pain Skin: No change in color, No change in hair/nails Psychiatric/Neurological: Denies Anxiety, Denies Depressed All Other Systems Reviewed Negative Unless Noted: Yes Physical Exam-General Problems Physical Exam Vital Signs Vital Signs - First Documented 09/24/21 09:53 Temp 36.4 Pulse 106 Resp 16 B/P (MAP) 96/75 (82) Pulse Ox 96 O2 Delivery Room Air Capillary Refill : Less Than 3 Seconds General Appearance: WD/WN, no apparent distress HEENT: PERRL/EOMI, normal ENT inspection Neck: supple, normal inspection Respiratory: no respiratory distress, no accessory muscle use Cardiovascular: no edema, no JVD Gastrointestinal: non tender, soft Back: normal inspection, no CVA tenderness Extremities: normal range of motion, non-tender, normal inspection Neurologic/Psychiatric: alert, normal mood/affect Skin: normal color, warm/dry, other (pacemaker incision and loop recorder removal incision on left upper chest ) Lymphatic: no adenopathy Data Review Labs Laboratory Tests 09/24/21 09:52: White Blood Count 9.8, Red Blood Count 4.10, Hemoglobin 11.6, Hematocrit 35, Mean Corpuscular Volume 86, Mean Corpuscular Hemoglobin 28, Mean Corpuscular Hemoglobin Concent 33, Red Cell Distribution Width 14.3, Platelet Count 391, Mean Platelet Volume 10.5, Prothrombin Time 14.4, INR Comment 1.1, Activated P artial Thromboplast Time 37H, Sodium Level 140, Potassium Level 4.0, Chloride Level 108H, Carbon Dioxide Level 21, Anion Gap 11, Blood Urea Nitrogen 17, Creatinine 1.15, Estimat Glomerular Filtration Rate 50, BUN/Creatinine Ratio 15, Glucose Level 135H, Calcium Level 9.4, Corrected Calcium 9.2, Total Bilirubin 0.3, Aspartate Amino Transf (AST/SGOT) 18, Alanine Aminotransferase (ALT/SGPT) 18, Alkaline Phosphatase 75, Total Protein 7.4, Albumin 4.3, Triglycerides Level 105, Cholesterol Level 156, LDL Cholesterol Direct 103, VLDL Cholesterol 21, HDL Cholesterol 47 09/24/21 22:04: Glucometer 137H 09/25/21 04:45: White Blood Count 7.0, Red Blood Count 3.26L, Hemoglobin 9.1#L, Hematocrit 29L, Mean Corpuscular Volume 89, Mean Corpuscular Hemoglobin 28, Mean Corpuscular Hemoglobin Concent 32, Red Cell Distribution Width 14.2, Platelet Count 249, Mean Platelet Volume 11.0, Sodium Level 138, Potassium Level 4.4, Chloride Level 109H, Carbon Dioxide Level 20L, Anion Gap 9, Blood Urea Nitrogen 13, Creatinine 0.90, Estimat Glomerular Filtration Rate 68, BUN/Creatinine Ratio 14, Glucose Level 106H, Calcium Level 8.7, Corrected Calcium 9.2, Total Bilirubin 0.4, Aspartate Amino Transf (AST/SGOT) 16, Alanine Aminotransferase (ALT/SGPT) 13, Alkaline Phosphatase 57, Total Protein 5.8L, Albumin 3.4 09/25/21 05:28: Glucometer 102 Assessment/Plan Assessment/Plan Assessment/Plan paroxysmal atrial fibrillation S/p dual chamber pacemaker implant- 09/24 Loop recording device removed bedside JENSEN BRO DO 09/25/21 1758: History of Present Illness History of Present Illness History of Present Illness Consult requested by Dr. Dobbins for loop recorder removal. Patient is 71-year-old female with atrial fibrillation she had pacemaker placed. She had a loop recorder placed approximately 1 month ago she states. And since having the pacemaker placed he needs it removed. She states that she has mild discomfort on the left shoulder area where the pacemaker was placed. She has no other complaints at this time. She denies any fever sweats chills shortness of breath or chest pain. Allergies and Home Medications Allergies Coded Allergies: vancomycin (Verified Allergy, Severe, HIVES, DIFFICULTY BREATHING, 07/05/19) Penicillins (Verified Allergy, Unknown, 09/24/21) Patient Home Medication List Home Medication List Reviewed: Yes Acetaminophen (Tylenol) 325 Mg Tablet, 650 MG PO Q6H PRN for PAIN-MILD (1-4), (Reported) Entered as Reported by: BANDAR LOWERY on 09/24/21 1036 Last Action: Reviewed Amiodarone HCl (Amiodarone HCl) 200 Mg Tablet, 200 MG PO BID, (Reported) Entered as Reported by: BANDAR LOWERY on 09/24/21 1036 Last Action: Continued Apixaban (Eliquis) 5 Mg Tablet, 5 MG PO BID, (Reported) Entered as Reported by: BANDAR LOWERY on 09/24/21 1036 Last Action: Continued Atorvastatin Calcium (Atorvastatin Calcium) 20 Mg Tablet, 20 MG PO HS, (Reported ) Entered as Reported by: RODOLFO VILLARREAL on 05/30/18 1512 Last Action: Continued Cefuroxime Axetil (Cefuroxime) 500 Mg Tablet, 500 MG PO BID Prescribed by: MATTHEW DOBBINS on 09/25/21 0538 Levothyroxine Sodium (Levothyroxine Sodium) 75 Mcg Tablet, 75 MCG PO DAILY, (Reported) Entered as Reported by: LORI TORREZ on 07/05/19 1344 Last Action: Continued Lisinopril (Lisinopril) 20 Mg Tablet, 20 MG PO DAILY, (Reported) Entered as Reported by: BANDAR LOWERY on 09/24/21 1036 Last Action: Continued Metformin HCl (Metformin HCl) 1,000 Mg Tablet, 1,000 MG PO DAILY Prescribed by: MATTHEW DOBBINS on 09/25/21 0538 Metoprolol Succinate (Metoprolol Succinate) 25 Mg Tab.er.24h, 25 MG PO BID, (Reported) Entered as Reported by: VARSHA LORA on 12/13/20 1237 Last Action: Continued Pantoprazole Sodium (Pantoprazole Sodium) 40 Mg Tablet.dr, 40 MG PO DAILY, (Reported) Entered as Reported by: VARSHA LORA on 07/31/20 0926 Last Action: Continued Paroxetine HCl (Paroxetine HCl) 20 Mg Tablet, 20 MG PO HS, (Reported) Entered as Reported by: LORI TORREZ on 07/05/19 1344 Last Action: Continued Discontinued Medications Acetaminophen (Tylenol) 325 Mg Tablet, 325 MG PO BID PRN for PAIN-MILD (1-4), (Reported) Discontinued Reason: Duplicate Order Entered as Reported by: VARSHA LORA on 07/31/20 0927 Last Action: Discontinued Amiodarone HCl (Amiodarone HCl) 200 Mg Tablet, 200 MG PO UD Discontinued Reason: Duplicate Order Prescribed by: MATTHEW DOBBINS on 01/08/21 1120 Last Action: Discontinued Apixaban (Eliquis) 5 Mg Tablet, 5 MG PO BID Discontinued Reason: Duplicate Order Prescribed by: EMY CURRY on 12/14/20 1248 Last Action: Discontinued Aspirin (Aspirin EC) 81 Mg Tablet.dr, 81 MG PO HS, (Reported) Entered as Reported by: DIRK BANDA on 11/29/17 1236 Last Action: Continued Diltiazem HCl (Diltiazem 24Hr ER) 180 Mg Cap.er.24h, 180 MG PO DAILY Discontinued Reason: No Longer Taking Prescribed by: EMY CURRY on 12/14/20 1248 Last Action: Discontinued Past Ekzopis-Iumqdp-Agjyyc Hx Reviewed Nursing Assessment Reviewed/Agree w Nursing PMH: Yes Family Medical History Significant Family History: No Pertinent Family Hx Review of Systems-General Constitutional: No chills, No diaphoresis EENTM: No hearing loss, No ear pain Respiratory: No cough, No dyspnea on exertion Cardiovascular: No edema, No syncope Gastrointestinal: No abdominal pain, No nausea, No vomiting Genitourinary: No decreased output, No discharge Musculoskeletal: No gout, No joint pain Skin: No change in color, No change in hair/nails Psychiatric/Neurological: Denies Anxiety, Denies Depressed All Other Systems Reviewed Negative Unless Noted: Yes (Negative excepted noted.) Physical Exam-General Problems Physical Exam General Appearance: WD/WN, no apparent distress HEENT: PERRL/EOMI, normal ENT inspection Neck: non-tender, supple Respiratory: chest non-tender, no respiratory distress, no accessory muscle use, other (left chest bruising, foreign body subcutaneous tissue left chest) Cardiovascular: regular rate, rhythm, no JVD Gastrointestinal: non tender, soft Rectal: deferred Back: normal inspection, no CVA tenderness Extremities: non-tender, normal inspection Neurologic/Psychiatric: alert, normal mood/affect Skin: normal color, warm/dry Lymphatic: no adenopathy Assessment/Plan Assessment/Plan Assessment/Plan paroxysmal atrial fibrillation S/p dual chamber pacemaker implant- 09/24 foreign body left chest subcutaneous tissue Patient no longer needing loop recorder. She has had the pacemaker placed yesterday. Dr. Dobbins's request to be removed. Patient has had risk and benefits and wishes to proceed. Patient will need to have suture removed in approximately 12 to 14 days. Procedure: Removal foreign body left chest subcutaneous tissue Patient was prepped draped in sterile fashion timeout was performed. 5 mL of 1% lidocaine with epinephrine was used anesthetize the area. Scalpel was used to make a small skin incision over the palpable area hemostat was used to grab the loop recorder from the subcutaneous tissue this was then dissected around and removed. The skin was then closed using 3-0 nylon in a simple erupted fashion. The areas washed and dried and sterile bandage was applied. Patient tolerated procedure well without any complications. Supervisory-Addendum Brief Verification & Attestation Participated in pt care: history, MDM, physical Personally performed: exam, history, MDM, supervision of care Care discussed with: Medical Student Procedures: performed (by me) Results interpretation: Verified all documentation Verification and Attestation of Medical Student E/M Service A medical student performed and documented this service in my presence. I reviewed and verified all information documented by the medical student and made modifications to such information, when appropriate. I personally performed the physical exam and medical decision making. Jensen Bro, Sep 25, 2021,17:58 JORGE VANEGAS Sep 25, 2021 08:18 JENSEN BRO DO Sep 25, 2021 17:58
[2021-09-25] MEDS ORDERED: lisINopril 20 MG (PRINIVIL) TABLET PO SCH (09:00)
[2021-09-25] MEDS ORDERED: PANTOPRAZOLE 40 MG (PROTONIX) TAB PO SCH (09:00)
[2021-09-25] MEDS: AMIODARONE 200 MG (CORDARONE) TAB PO SCH (09:00)
[2021-09-25] MEDS: NS IV 1000 ML 1,000 ML IV SCH (09:00)
[2021-09-25] MEDS: APIXABAN 5 MG (ELIQUIS) TABLET PO SCH (09:01)
== END 2021-09-25 11:53 | disposition home or self-care (01) ==
LOC: CATH 11:00 → ICU 12:34 → CATH 09-25 11:53
PROVIDERS: ATTEND Internal Medicine Cardiovascular Disease
DX: I25.10 Atherosclerotic heart disease of native coronary artery without angina pectoris (principal); I48.0 Paroxysmal atrial fibrillation; I10 Essential (primary) hypertension; I49.5 Sick sinus syndrome; E78.2 Mixed hyperlipidemia; D64.9 Anemia, unspecified; I65.23 Occlusion and stenosis of bilateral carotid arteries; Z79.82 Long term (current) use of aspirin; Z79.01 Long term (current) use of anticoagulants; Z79.890 Hormone replacement therapy
CPT/HCPCS: 33208; 71045; 80053 ×2; 80061; 82947 ×2; 85027 ×2; 85610; 85730; 87081; 92960; 93005 ×2; 93312; 93454; C1760; C1785; C1894; C1898 ×2; 36415

== ENCOUNTER 2021-11-22 19:01 | Emergency (ER) | payer MEDICARE, OTHER ==
[~2021-11-22] VITALS: Ht 157 cm; Wt 69.9 kg
[~2021-11-22 19:01] MED LIST changes: -CATHETER FLUSH 10 ML SYR IV PRN; +CEFU500T63 PO; -HEParin (CATH LAB) 2,000 ML IV ONE; -HOLD METFORMIN - RECEIVED CONTRAST 20 ML VIAL IV SCH; -IOHEXOL 350 MG/ML 100 ML (OMNIPAQUE 350) VIAL IV ONE; -LIDOCAINE 1% INJ 20 ML VIAL ONE; -LIDOCAINE 2% VISCOUS 15 ML UDC ONE; -NS 100 ML (IVPB) BAG IV ONE; -NS IV 1000 ML 1,000 ML IV SCH; -NS IV 1000 ML 1,000 ML ONE; -proPOfol 200 MG/20 ML (DIPRIVAN) VIAL IV ONE
--- NOTE | 2021-11-22 19:32 | ED Upper Extremity ---
General Chief Complaint: Trauma-Non Activation Stated Complaint: FALL/FACIAL INJURY Nursing Triage Note: REPORTS FALLING FORWARD AFTER STANDING UP. C/O LEFT FACIAL PAIN, RIGHT SHOULDER, NECK PAIN. DENIES LOC. ON ELIQUIS. C-COLLAR APPLIED IN TRIAGE Source: patient Exam Limitations: no limitations History of Present Illness Date Seen by Provider: Nov 22, 2021 Time Seen by Provider: 19:25 Initial Comments 71 y/o female presents this evening following a fall. Pt states she was getting out of her car and believes she tripped over curb which caused her to fall forward and hit her face on the concrete. She is having pain in bridge of her nose and around the left eye and frontal region which is accompanied by headache. She also c/o neck pain and left shoulder pain.. She denies LOC, dizziness, weakness, numbness, tingling, vision changes, syncope, chest pain, SOA, rib pain, back pain, abdominal pain or other injuries. She has not taken anything for pain prior to arrival. She does report she takes eloquis and aspirin daily. Location Injury Occurred: [place] Onset: just prior to arrival Pain/Injury Location: left shoulder; bilateral other (frontal region, left orbital bone, nose, and neck) Method of Injury: fell Allergies and Home Medications Allergies Coded Allergies: vancomycin (Verified Allergy, Severe, HIVES, DIFFICULTY BREATHING, 07/05/19) Penicillins (Verified Allergy, Unknown, 09/24/21) Patient Home Medication List Home Medication List Reviewed: Yes Acetaminophen (Tylenol) 325 Mg Tablet, 650 MG PO Q6H PRN for PAIN-MILD (1-4), (Reported) Entered as Reported by: BANDAR LOWERY on 09/24/21 1036 Amiodarone HCl (Amiodarone HCl) 200 Mg Tablet, 200 MG PO BID, (Reported) Entered as Reported by: BANDAR LOWERY on 09/24/21 1036 Apixaban (Eliquis) 5 Mg Tablet, 5 MG PO BID, (Reported) Entered as Reported by: BANDAR LOWERY on 09/24/21 1036 Atorvastatin Calcium (Atorvastatin Calcium) 20 Mg Tablet, 20 MG PO HS, (Reported) Entered as Reported by: RODOLFO VILLARREAL on 05/30/18 1512 Cefuroxime Axetil (Cefuroxime) 500 Mg Tablet, 500 MG PO BID Prescribed by: MATTHEW VILLALOBOS on 09/25/21 0538 Levothyroxine Sodium (Levothyroxine Sodium) 75 Mcg Tablet, 75 MCG PO DAILY, (Reported) Entered as Reported by: LORI TORREZ on 07/05/19 1344 Lisinopril (Lisinopril) 20 Mg Tablet, 20 MG PO DAILY, (Reported) Entered as Reported by: BANDAR LOWERY on 09/24/21 1036 Metformin HCl (Metformin HCl) 1,000 Mg Tablet, 1,000 MG PO DAILY Prescribed by: MATTHEW VILLALOBOS on 09/25/21 0538 Metoprolol Succinate (Metoprolol Succinate) 25 Mg Tab.er.24h, 25 MG PO BID, (Reported) Entered as Reported by: VARSHA LORA on 12/13/20 1237 Pantoprazole Sodium (Pantoprazole Sodium) 40 Mg Tablet.dr, 40 MG PO DAILY, (Reported) Entered as Reported by: VARSHA LORA on 07/31/20 0926 Paroxetine HCl (Paroxetine HCl) 20 Mg Tablet, 20 MG PO HS, (Reported) Entered as Reported by: LORI TORREZ on 07/05/19 1344 Review of Systems Constitutional: no symptoms reported EENTM: nose pain; No blurred vision, No double vision, No vision loss, No mouth pain, No epistaxis, No nose congestion, No throat pain Respiratory: No cough, No dyspnea on exertion, No short of breath, No wheezing Cardiovascular: No chest pain, No palpitations, No syncope Gastrointestinal: No abdominal pain, No nausea, No vomiting Musculoskeletal: No back pain, No joint swelling; muscle pain; No muscle stiffness, No muscle cramps, No muscle weakness; neck pain Skin: no symptoms reported Psychiatric/Neurological: Headache; Denies Numbness, Denies Paresthesia, Denies Tingling, Denies Weakness Past Kqauvsp-Fynwuz-Wuxzxu Hx Patient Social History Tobacco Use?: No Substance use?: No Alcohol Use?: No Pt feels they are or have been: No Immunizations Up To Date Tetanus Booster (TDap): Unknown First/Initial COVID19 Vaccinat: 02/28 Second COVID19 Vaccination Marc: 03/31 Third COVID19 Vaccination Date: 11/28 Seasonal Allergies Seasonal Allergies: Yes (MILD) Past Medical History Surgery/Hospitalization HX: AORTIC VALVE REGURGITATION, HTN, EMERY CHOLESTEROL, NIDDM, GERD, HERNIA. 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 Sexually Transmitted Disease: No HIV/AIDS: No Genitourinary: Yes UTI-Chronic Gastrointestinal: Yes Gastroesophageal Reflux, Diverticulosis, Chronic Diarrhea Musculoskeletal: Yes (BORN WITH DEGENERATIVE BONE DISEASE/ARTHRITIS) Endocrine: Yes Hypothyroidsim, Diabetes, Non-Insulin dep HEENT: Yes Cataract Loss of Vision: Denies Hearing Impairment: Denies Cancer: No (THYROID TUMORS) Skin Did You Recieve Any Treatments: No Psychosocial: Yes Anxiety, Depression Integumentary: No Blood Disorders: No Adverse Reaction/Blood Tranf: No (HAS HAD BLOOD WITH NO REACTION) Family Medical History No Pertinent Family Hx Physical Exam Vital Signs Vital Signs - First Documented 11/22/21 19:15 Temp 36.8 Pulse 92 Resp 16 B/P (MAP) 126/71 (89) Pulse Ox 100 O2 Delivery Room Air Capillary Refill : Height, Weight, BMI Height: 4'11.00" Weight: 150lbs. 0.0oz. 68.203885kt; 31.10 BMI Method:Actual General Appearance: WD/WN, no apparent distress HEENT: PERRL/EOMI, TMs normal, pharynx normal, other (superficial abrasion to nose, ecchymosis of left upper orbital bone) Neck: supple, normal inspection, tender lateral (right and left) Cardiovascular: normal peripheral pulses, regular rate, rhythm Respiratory: chest non-tender, lungs clear, normal breath sounds, no re spiratory distress Gastrointestinal: non tender, soft Back: normal inspection, no CVA tenderness, no vertebral tenderness Shoulder: normal ROM, bone tenderness; No ecchymosis, No limited ROM; pain, soft tissue tenderness; No swelling Elbow/Forearm: normal inspection, non-tender, normal ROM, Bilateral Wrist: Yes normal inspection, Yes non-tender, Yes normal ROM Hand: normal inspection, non-tender, normal ROM, Bilateral Neurologic/Tendon: normal sensation, normal motor functions, normal tendon functions 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 as tested, no motor/sensory deficits, alert, normal mood/affect, oriented x 3 Skin: normal color, warm/dry Progress/Results/Core Measures Results/Orders My Orders Orders - ASHLEY FLORES APRN Ct Head/Face/Cervical Wo (11/22/21 19:32) Shoulder, Left, 3 Views (11/22/21 19:32) Acetaminophen Tablet/Caplet (Tylenol T (11/22/21 20:45) Medications Given in ED Current Medications Medications Dose Ordered Sig/Demetrio Route Start Time Stop Time Status Last Admin Dose Admin Acetaminophen 650 mg ONCE ONCE PO 11/22/21 20:45 11/22/21 20:46 DC 11/22/21 20:41 650 MG Vital Signs/I&O 11/22/21 11/22/21 19:15 20:48 Temp 36.8 Pulse 92 60 Resp 16 18 B/P (MAP) 126/71 (89) 129/60 Pulse Ox 100 100 O2 Delivery Room Air Room Air Departure Impression Primary Impression: Fall Additional Impressions: Abrasion of nose Contusion, orbital rim Neck pain, bilateral Contusion of left shoulder Disposition: 01 HOME, SELF-CARE Condition: Stable Admissions Decision to Admit/Date: Nov 22, 2021 Time/Decision to Admit Time: 20:38 Departure-Patient Inst. Referrals: TRISTIAN HEATH MD (PCP/Family) Primary Care Physician Patient Instructions: Skin Abrasions (DC), Acute Pain, Adult (DC), Minor Head Injury (DC) Add. Discharge Instructions: Rest, tylenol 500mg every 4 hours as needed. Ice as needed. Follow up with any new/worsening concerns All discharge instructions reviewed with patient and/or family. Voiced understanding. ASHLEY FLORES APRN Nov 22, 2021 19:32
--- NOTE | 2021-11-22 20:17 | Diagnostic Imaging Report ---
EXAMINATION: Left shoulder 2 or more views. HISTORY: Fall, left lateral shoulder pain. COMPARISON: None available. FINDINGS: Pacemaker is present. The alignment is normal. No fracture is seen. The acromioclavicular and glenohumeral joint spaces are normal. IMPRESSION: No fracture. Dictated by: Dictated on workstation # [id number]
--- NOTE | 2021-11-22 20:34 | Diagnostic Imaging Report ---
EXAMINATION: CT head, face and CT cervical spine without contrast. TECHNIQUE: Multiple contiguous axial images were obtained through the face, brain and cervical spine without the use of intravenous contrast. Sagittal and coronal reformations through the cervical spine were then performed. All CT scans use one or more of the following dose optimizing techniques: automated exposure control, MA and/or KvP adjustment based on patient size and exam type or iterative reconstruction. HISTORY: Head, face and neck injury. COMPARISON: None available. FINDINGS: The em-white matter differentiation is normal. No mass effect or midline shift. The ventricles are normal in size and configuration. Basilar cisterns are patent. There is no intra-axial or extra-axial fluid collection. There is no intracranial hemorrhage. The orbits are normal. Paranasal sinuses are normal. Mastoid air cells are clear. No soft tissue abnormality is seen. No osseus lesion or fracture is seen. No fracture is seen in the face. The nasal bones are normal. Mandible and maxillae are normal. Zygomatic arches are normal. Pterygoid plates are normal. No soft tissue abnormality is seen. The alignment of the cervical spine is normal. No fracture is seen. Vertebral body heights are normal. The craniocervical junction is normal. There is moderate degenerative disease in the cervical spine. There is severe narrowing of the right C2-C3 neural foramen. There is no spinal canal stenosis. No soft tissue abnormality is seen in the neck. Limited views of the superior thorax are normal. IMPRESSION: 1. No acute intracranial abnormality. 2. No cervical spine fracture. 3. No fracture in the face. Dictated by: Dictated on workstation # [id number]
[2021-11-22] MEDS ORDERED: ACETAMINOPHEN 325 MG TABLET PO ONE (20:45)
[2021-11-22 20:48] VITALS: BP 129/60
== END 2021-11-22 20:48 | disposition home or self-care (01) ==
LOC: EDUNIT# 19:01 → ER 19:05
DX: S40.012A Contusion of left shoulder, initial encounter (principal); S05.12XA Contusion of eyeball and orbital tissues, left eye, initial encounter; M54.2 Cervicalgia; I48.91 Unspecified atrial fibrillation; Z79.01 Long term (current) use of anticoagulants; Z79.82 Long term (current) use of aspirin; W01.198A Fall on same level from slipping, tripping and stumbling with subsequent striking against other object, initial encounter
CPT/HCPCS: 70450; 70486; 72125; 73030

== ENCOUNTER 2021-12-12 17:03 | Emergency (ER) | payer MEDICARE, OTHER ==
[~2021-12-12] VITALS: Ht 149.9 cm; Wt 65.8 kg
--- NOTE | 2021-12-12 17:36 | ED General ---
General Chief Complaint: General Problems/Pain Stated Complaint: WEAKNESS Nursing Triage Note: PT TO ED BY EMS WITH C/O DIZZINESS/WEAKNESS X 2DAYS. EMS REPORTS THEY WERE CALLED TO [facility] BECAUSE PT BP WAS 100/70 AND SHE WAS DIZZY. PT REPORTS SHE HAS HAD DIZZY SPELLS, WORSE WHEN STANDING, AND FELL 2 WEEKS AGO. PT A&O X 4. History of Present Illness Date Seen by Provider: Dec 12, 2021 Time Seen by Provider: 17:36 Initial Comments Patient presents to the emergency from [facility] for dizziness and weakness for the past few days. Reports that her blood pressure has been running on the lower end. Fell two weeks ago due to the dizziness. Denies fall or syncopal episode today. Denies recent illness. Timing/Duration: 2-3 Days Modifying Factors: worse with Movement Associated Systoms: Malaise Allergies and Home Medications Allergies Coded Allergies: vancomycin (Verified Allergy, Severe, HIVES, DIFFICULTY BREATHING, 07/05/19) Penicillins (Verified Allergy, Unknown, 09/24/21) Patient Home Medication List Home Medication List Reviewed: Yes Acetaminophen (Tylenol) 325 Mg Tablet, 650 MG PO Q6H PRN for PAIN-MILD (1-4), (Reported) Entered as Reported by: BANDAR LOWERY on 09/24/21 1036 Amiodarone HCl (Amiodarone HCl) 200 Mg Tablet, 200 MG PO BID, (Reported) Entered as Reported by: BANDAR LOWERY on 09/24/21 1036 Apixaban (Eliquis) 5 Mg Tablet, 5 MG PO BID, (Reported) Entered as Reported by: BANDAR LOWERY on 09/24/21 1036 Atorvastatin Calcium (Atorvastatin Calcium) 20 Mg Tablet, 20 MG PO HS, (Reported) Entered as Reported by: RODOLFO VILLARREAL on 05/30/18 1512 Cefuroxime Axetil (Cefuroxime) 500 Mg Tablet, 500 MG PO BID Prescribed by: MATTHEW VILLALOBOS on 09/25/21 0538 Cephalexin (Cephalexin) 500 Mg Capsule, 500 MG PO BID Prescribed by: Amanda Blevins on 12/12/21 1903 Levothyroxine Sodium (Levothyroxine Sodium) 75 Mcg Tablet, 75 MCG PO DAILY, (Reported) Entered as Reported by: LORI TORREZ on 07/05/19 1344 Lisinopril (Lisinopril) 20 Mg Tablet, 20 MG PO DAILY, (Reported) Entered as Reported by: BANDAR LOWERY on 09/24/21 1036 Metformin HCl (Metformin HCl) 1,000 Mg Tablet, 1,000 MG PO DAILY Prescribed by: MATTHEW VILLALOBOS on 09/25/21 0538 Metoprolol Succinate (Metoprolol Succinate) 25 Mg Tab.er.24h, 25 MG PO BID, (Reported) Entered as Reported by: VARSHA LORA on 12/13/20 1237 Pantoprazole Sodium (Pantoprazole Sodium) 40 Mg Tablet.dr, 40 MG PO DAILY, (Reported) Entered as Reported by: VARSHA LORA on 07/31/20 0926 Paroxetine HCl (Paroxetine HCl) 20 Mg Tablet, 20 MG PO HS, (Reported) Entered as Reported by: LORI TORREZ on 07/05/19 1344 Review of Systems Review of Systems Constitutional: No chills; dizziness; No fever; malaise, weakness EENTM: no symptoms reported Respiratory: no symptoms reported Cardiovascular: no symptoms reported Gastrointestinal: No abdominal pain, No diarrhea, No nausea, No vomiting Genitourinary: No frequency Musculoskeletal: No back pain, No muscle pain Skin: no symptoms reported All Other Systems Reviewed Negative Unless Noted: Yes Past Ddmuifz-Uldapq-Tkmibh Hx Patient Social History Tobacco Use?: No Use of E-Cig and/or Vaping dev: No Substance use?: No Alcohol Use?: No Pt feels they are or have been: No Immunizations Up To Date Tetanus Booster (TDap): Unknown Influenza Vaccine Up-to-Date: Yes; Up-to-Date First/Initial COVID19 Vaccinat: 02/28 Second COVID19 Vaccination Marc: 03/31 Third COVID19 Vaccination Date: 11/28 Seasonal Allergies Seasonal Allergies: Yes (MILD) Past Medical History Surgery/Hospitalization HX: A FIB, DM2, AORTIC VALVE REGURGITATION, HTN, EMERY CHOLESTEROL, NIDDM, GERD, HERNIA. 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 Sexually Transmitted Disease: No HIV/AIDS: No Genitourinary: Yes UTI-Chronic Gastrointestinal: Yes Gastroesophageal Reflux, Diverticulosis, Chronic Diarrhea Musculoskeletal: Yes (BORN WITH DEGENERATIVE BONE DISEASE/ARTHRITIS) Endocrine: Yes Hypothyroidsim, Diabetes, Non-Insulin dep HEENT: Yes Cataract Loss of Vision: Denies Hearing Impairment: Denies Cancer: No (THYROID TUMORS) Skin Did You Recieve Any Treatments: No Psychosocial: Yes Anxiety, Depression Integumentary: No Blood Disorders: No Adverse Reaction/Blood Tranf: No (HAS HAD BLOOD WITH NO REACTION) Family Medical History Reviewed Nursing Family Hx No Pertinent Family Hx Physical Exam Vital Signs Vital Signs - First Documented 12/12/21 17:05 Temp 37.4 Pulse 70 Resp 13 B/P (MAP) 113/70 (84) Pulse Ox 99 O2 Delivery Room Air Capillary Refill : Less Than 3 Seconds Height, Weight, BMI Height: 4'11.00" Weight: 150lbs. 0.0oz. [id number]; 29.00 BMI Method:Actual General Appearance: No Apparent Distress, WD/WN Eyes: Bilateral Eye Normal Inspection, Bilateral Eye PERRL, Bilateral Eye EOMI HEENT: PERRL/EOMI, TMs Normal, Normal ENT Inspection, Pharynx Normal Neck: Full Range of Motion, Normal Inspection, Non Tender, Supple Respiratory: Chest Non Tender, Lungs Clear, Normal Breath Sounds, No Accessory Muscle Use, No Respiratory Distress Cardiovascular: Regular Rate, Rhythm, No Edema Gastrointestinal: Normal Bowel Sounds, No Organomegaly, No Pulsatile Mass, Non Tender, Soft Neurologic/Psychiatric: Alert, Oriented x3 Skin: Normal Color, Warm/Dry Progress/Results/Core Measures Suspected Sepsis SIRS Temperature: Pulse: 70 Respiratory Rate: 13 Laboratory Tests 12/12/21 18:05: White Blood Count 7.7 Blood Pressure 113 /70 Mean: 84 Laboratory Tests 12/12/21 18:05: Creatinine 1.30, Platelet Count 364, Total Bilirubin 0.3 Results/Orders Lab Results Laboratory Tests Test 12/12/21 17:50 12/12/21 18:05 Range/Units Urine Color ORANGE Urine Clarity SL CLOUDY Urine pH 5.5 5-9 Urine Specific [place] >=1.030 1.016-1.022 Urine Protein NEGATIVE NEGATIVE Urine Glucose (UA) NEGATIVE NEGATIVE Urine Ketones NEGATIVE NEGATIVE Urine Nitrite POSITIVE H NEGATIVE Urine Bilirubin NEGATIVE NEGATIVE Urine Urobilinogen 0.2 < = 1.0 MG/DL Urine Leukocyte Esterase 1+ H NEGATIVE Urine RBC (Auto) NEGATIVE NEGATIVE Urine RBC NONE /HPF Urine WBC 25-50 H /HPF Urine Squamous Epithelial Cells 0-2 /HPF Urine Crystals NONE /LPF Urine Bacteria LARGE H /HPF Urine Casts NONE /LPF Urine Mucus NEGATIVE /LPF Urine Culture Indicated YES White Blood Count 7.7 4.3-11.0 10^3/uL Red Blood Count 4.28 3.80-5.11 10^6/uL Hemoglobin 11.6 11.5-16.0 g/dL Hematocrit 36 35-52 % Mean Corpuscular Volume 85 80-99 fL Mean Corpuscular Hemoglobin 27 25-34 pg Mean Corpuscular Hemoglobin Concent 32 32-36 g/dL Red Cell Distribution Width 15.3 H 10.0-14.5 % Platelet Count 364 130-400 10^3/uL Mean Platelet Volume 11.5 9.0-12.2 fL Immature Granulocyte % (Auto) 0 % Neutrophils (%) (Auto) 59 42-75 % Lymphocytes (%) (Auto) 33 12-44 % Monocytes (%) (Auto) 6 0-12 % Eosinophils (%) (Auto) 1 0-10 % Basophils (%) (Auto) 1 0-10 % Neutrophils # (Auto) 4.5 1.8-7.8 10^3/uL Lymphocytes # (Auto) 2.6 1.0-4.0 10^3/uL Monocytes # (Auto) 0.4 0.0-1.0 10^3/uL Eosinophils # (Auto) 0.1 0.0-0.3 10^3/uL Basophils # (Auto) 0.1 0.0-0.1 10^3/uL Immature Granulocyte # (Auto) 0.0 0.0-0.1 10^3/uL Sodium Level 141 135-145 MMOL/L Potassium Level 4.5 3.6-5.0 MMOL/L Chloride Level 107 98-107 MMOL/L Carbon Dioxide Level 20 L 21-32 MMOL/L Anion Gap 14 5-14 MMOL/L Blood Urea Nitrogen 20 H 7-18 MG/DL Creatinine 1.30 0.60-1.30 MG/DL Estimat Glomerular Filtration Rate 43 BUN/Creatinine Ratio 15 Glucose Level 119 H 70-105 MG/DL Calcium Level 10.0 8.5-10.1 MG/DL Corrected Calcium 9.8 8.5-10.1 MG/DL Total Bilirubin 0.3 0.1-1.0 MG/DL Aspartate Amino Transf (AST/SGOT) 28 5-34 U/L Alanine Aminotransferase (ALT/SGPT) 31 0-55 U/L Alkaline Phosphatase 87 40-136 U/L Troponin I < 0.028 <0.028 NG/ML Total Protein 7.6 6.4-8.2 GM/DL Albumin 4.2 3.2-4.5 GM/DL My Orders Orders - AMANDA BLEVINS APRN Cbc With Automated Diff (12/12/21 17:41) Comprehensive Metabolic Panel (12/12/21 17:41) Ua Culture If Indicated (12/12/21 17:41) Troponin I [place] (12/12/21 17:41) Ekg Tracing (12/12/21 17:41) Ns Iv 1000 Ml (Sodium Chloride 0.9%) (12/12/21 17:45) Urine Culture (12/12/21 17:50) Vital Signs/I&O 12/12/21 17:05 Temp 37.4 Pulse 70 Resp 13 B/P (MAP) 113/70 (84) Pulse Ox 99 O2 Delivery Room Air Capillary Refill : Less Than 3 Seconds Blood Pressure Mean: 84 Progress Note : Progress Note Electrolytes overall looked okay. UA was positive for infection. Likely what is contributing to her symptoms. Instructed to push fluids and start the antibiotic as directed. Reasons to return to the ER were discussed with patient. ECG Initial ECG Impression Date: Dec 12, 2021 Initial ECG Impression Time: 17:45 Initial ECG Rate: 80 Comment Paced rhythm Departure Impression Primary Impression: UTI (urinary tract infection) Qualified Codes: N30.01 - Acute cystitis with hematuria Disposition: HOME, SELF-CARE Condition: Stable Departure-Patient Inst. Decision time for Depature: 19:02 Referrals: TRISTIAN HEATH MD (PCP/Family) Primary Care Physician Patient Instructions: Urinary Tract Infection, Adult (DC) Add. Discharge Instructions: 1. Home and rest. 2. Push fluids. 3. Alternate Tylenol/Ibuprofen as needed for pain. 4. Follow up with PCP as needed. 5. Start Cephalexin and take as directed until finished. 6. Return here if worse or concerns. All discharge instructions reviewed with patient and/or family. Voiced understanding. Scripts Cephalexin (Cephalexin) 500 Mg Capsule 500 MG PO BID for 7 Days, #14 CAP 0 Refills Prov: AMANDA BLEVINS APRN 12/12/21 AMANDA BLEVINS APRN Dec 12, 2021 17:36
[2021-12-12] MEDS ORDERED: NS IV 1000 ML 1,000 ML IV SCH (17:45)
[2021-12-12 17:59] LABS: BILIRUBIN,URINE NEGATIVE (NEGATIVE); CLARITY,URINE SL CLOUDY; COLOR,URINE ORANGE; GLUCOSE, URINE (UA) NEGATIVE (NEGATIVE); KETONES,URINE NEGATIVE (NEGATIVE); LEUKOCYTE ESTERASE ,URINE 1+ (NEGATIVE); NITRITE,URINE POSITIVE (NEGATIVE); PH,URINE 5.5 (5-9); PROTEIN,URINE NEGATIVE (NEGATIVE)
[2021-12-12 18:06] LABS: BACTERIA,URINE LARGE /HPF; WBC,URINE 25-50 /HPF
[2021-12-12 18:07] LABS: SQUAMOUS EPITHELIAL CELL,UR 0-2 /HPF
[2021-12-12 18:22] LABS: BASOPHILS # (AUTO) 0.1 10^3/uL (0.0-0.1); BASOPHILS % (AUTO) 1 % (0-10); EOSINOPHILS # (AUTO) 0.1 10^3/uL (0.0-0.3); EOSINOPHILS % (AUTO) 1 % (0-10); HEMATOCRIT 36 % (35-52); HEMOGLOBIN 11.6 g/dL (11.5-16.0); LYMPHOCYTES # (AUTO) 2.6 10^3/uL (1.0-4.0); LYMPHOCYTES % (AUTO) 33 % (12-44); MEAN CORPUSCULAR HEMOGLOBIN 27 pg (25-34); MEAN CORPUSCULAR HGB CONC 32 g/dL (32-36); MEAN CORPUSCULAR VOLUME 85 fL (80-99); MEAN PLATELET VOLUME 11.5 fL (9.0-12.2); MONOCYTES # (AUTO) 0.4 10^3/uL (0.0-1.0); MONOCYTES % (AUTO) 6 % (0-12); NEUTROPHILS # (AUTO) 4.5 10^3/uL (1.8-7.8); NEUTROPHILS % (AUTO) 59 % (42-75); PLATELET COUNT 364 10^3/uL (130-400); WHITE BLOOD COUNT 7.7 10^3/uL (4.3-11.0)
[2021-12-12 18:34] LABS: ALBUMIN 4.2 GM/DL (3.2-4.5); CHLORIDE 107 MMOL/L (98-107); POTASSIUM 4.5 MMOL/L (3.6-5.0); SODIUM 141 MMOL/L (135-145)
[2021-12-12 18:37] LABS: GLUCOSE 119 MG/DL (70-105); TOTAL PROTEIN 7.6 GM/DL (6.4-8.2)
[2021-12-12 18:38] LABS: BILIRUBIN,TOTAL 0.3 MG/DL (0.1-1.0); CARBON DIOXIDE 20 MMOL/L (21-32)
[2021-12-12 18:40] LABS: ALKALINE PHOSPHATASE 87 U/L (40-136); GFR ESTIMATED 43
[2021-12-12 18:41] LABS: BUN/CREATININE RATIO 15
[2021-12-12 18:43] LABS: ALANINE AMINOTRANSFERASE 31 U/L (0-55)
[2021-12-12] MEDS ORDERED: CEPH500C PO (19:03)
[2021-12-12 23:26] VITALS: BP 115/69
== END 2021-12-12 23:26 | disposition home or self-care (01) ==
LOC: ER 17:03 → EDUNIT# 17:03 → ER 23:26
DX: N39.0 Urinary tract infection, site not specified (principal); Z88.0 Allergy status to penicillin; Z88.1 Allergy status to other antibiotic agents
CPT/HCPCS: 36415; 80053; 81000; 84484; 85025; 87077; 87088; 87186; 93005

== ENCOUNTER → 2022-07-15 | Outpatient (CLI) | payer MEDICARE, OTHER ==
[~2022-07-15] MED LIST changes: +CEPH500C PO; -PARO30TA74 PO; +PARO30TA96 PO; +POTA-330 PO; -POTA-51 PO
--- NOTE | 2022-07-15 18:04 | Diagnostic Imaging Report ---
EXAMINATION: Left wrist radiograph EXAM DATE: 07/15/2022 2:26 PM COMPARISON: None available. HISTORY: LT WRIST PAIN TECHNIQUE: Three views FINDINGS: There is no acute fracture, dislocation, or destructive osseous process. There is degenerative joint space narrowing, greatest at the first carpometacarpal joint. The soft tissues are normal. IMPRESSION: 1. No acute osseous abnormality. 2. Degenerative changes of the left wrist, greatest at the first carpometacarpal joint. Dictated by: Dictated on workstation # [id number]
== END ==
LOC: RAD 14:16
PROVIDERS: ATTEND Nurse Practitioner Family
DX: M19.032 Primary osteoarthritis, left wrist (principal)
CPT/HCPCS: 73110

== ENCOUNTER 2022-10-15 11:07 | Inpatient (IN) | payer MEDICARE, OTHER ==
[~2022-10-15] VITALS: Ht 149.9 cm; Wt 76.7 kg
--- NOTE | 2022-10-15 11:30 | ED General ---
General Chief Complaint: General Problems/Pain Stated Complaint: WEAKNESS Nursing Triage Note: PT TO [facility] BY EMS WITH C/O WEAKNESS, ANXIETY, SOA WHEN WALKING, LOWER ABD PAIN AND BLOATING. PT STATES "I JUST DONT FEEL GOOD." PT HX OF CHF. PT REPORTS RECENT ANTIBIOTIC USE FOR E.COLI. PT STATES IS SUPPOSE TO OBTAIN ANOTHER STOOL CULTURE. PT A&OX4 Source of Information: Patient Exam Limitations: No Limitations History of Present Illness Date Seen by Provider: Oct 15, 2022 Time Seen by Provider: 11:27 Initial Comments Patient is a 72-year-old female with a history of A-fib, CHF, diabetes who presents the ED for fatigue and weakness for the past week. She states she is having some mild abdominal discomfort described as more bloating. She reports loose stool without any blood or mucus or odor. Recently diagnosed with E. coli was placed on antibiotics for 10 days and finished 5 days ago. She reports frequent urination with a known history of frequent UTIs. She reports chest heaviness and pressure on the left side for the past 1 to 2 years. She also reports a chronic cough. She states she has a history of kidney disease. History of urinary continence. She states she feels short of breath with ambulation. She states her oxygen dropped down to 47% at home. She is not currently on diuretic or an anticoagulant according to patient. She does have a pacemaker. Patient denies fever, chest pain, headache, dizziness, unilateral muscle weakness or sensory changes. History of leg swelling when she ambulates. No specific swelling at this time. Allergies and Home Medications Allergies Coded Allergies: vancomycin (Verified Allergy, Severe, HIVES, DIFFICULTY BREATHING, 07/05/19) Penicillins (Verified Allergy, Unknown, 09/24/21) Patient Home Medication List Home Medication List Reviewed: Yes Acetaminophen (Tylenol) 325 Mg Tablet, 650 MG PO Q6H PRN for PAIN-MILD (1-4), (Reported) Entered as Reported by: BANDAR LOWERY on 09/24/21 1036 Amiodarone HCl (Amiodarone HCl) 200 Mg Tablet, 200 MG PO BID, (Reported) Entered as Reported by: BANDAR LOWERY on 09/24/21 1036 Apixaban (Eliquis) 5 Mg Tablet, 5 MG PO BID, (Reported) Entered as Reported by: BANDAR LOWERY on 09/24/21 1036 Atorvastatin Calcium (Atorvastatin Calcium) 20 Mg Tablet, 20 MG PO HS, (Reported) Entered as Reported by: RODOLFO VILLARREAL on 05/30/18 1512 Cefuroxime Axetil (Cefuroxime) 500 Mg Tablet, 500 MG PO BID Prescribed by: MATTHEW DOBBINS on 09/25/21 0538 Cephalexin (Cephalexin) 500 Mg Capsule, 500 MG PO BID Prescribed by: Amanda Hernandez on 12/12/21 1903 Levothyroxine Sodium (Levothyroxine Sodium) 75 Mcg Tablet, 75 MCG PO DAILY, (Reported) Entered as Reported by: LORI TORREZ on 07/05/19 1344 Lisinopril (Lisinopril) 20 Mg Tablet, 20 MG PO DAILY, (Reported) Entered as Reported by: BANDAR LOWERY on 09/24/21 1036 Metformin HCl (Metformin HCl) 1,000 Mg Tablet, 1,000 MG PO DAILY Prescribed by: MATTHEW DOBBINS on 09/25/21 0538 Metoprolol Succinate (Metoprolol Succinate) 25 Mg Tab.er.24h, 25 MG PO BID, (Reported) Entered as Reported by: VARSHA LORA on 12/13/20 1237 Pantoprazole Sodium (Pantoprazole Sodium) 40 Mg Tablet.dr, 40 MG PO DAILY, (Reported) Entered as Reported by: VARSHA LORA on 07/31/20 0926 Paroxetine HCl (Paroxetine HCl) 20 Mg Tablet, 20 MG PO HS, (Reported) Entered as Reported by: LORI TORREZ on 07/05/19 1344 Review of Systems Review of Systems Constitutional: No chills, No diaphoresis; malaise, weakness EENTM: No ear pain, No blurred vision, No double vision Respiratory: cough, dyspnea on exertion Cardiovascular: chest pain Gastrointestinal: No abdominal pain, No constipation; diarrhea; No nausea, No vomiting Genitourinary: No decreased output, No discharge Musculoskeletal: No back pain, No joint pain Skin: No change in color, No change in hair/nails All Other Systems Reviewed Negative Unless Noted: Yes Past Xradcxv-Rdfurx-Hcbbda Hx Patient Social History Tobacco Use?: No Substance use?: No Alcohol Use?: No Pt feels they are or have been: No Immunizations Up To Date Tetanus Booster (TDap): Unknown First/Initial COVID19 Vaccinat: 02/28 Second COVID19 Vaccination Marc: 03/31 Third COVID19 Vaccination Date: 11/28 Seasonal Allergies Seasonal Allergies: Yes (MILD) Past Medical History Surgery/Hospitalization HX: A FIB, DM2, AORTIC VALVE REGURGITATION, HTN, EMERY CHOLESTEROL, NIDDM, GERD, HERNIA. 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 Sexually Transmitted Disease: No HIV/AIDS: No Genitourinary: Yes UTI-Chronic Gastrointestinal: Yes Gastroesophageal Reflux, Diverticulosis, Chronic Diarrhea Musculoskeletal: Yes (BORN WITH DEGENERATIVE BONE DISEASE/ARTHRITIS) Endocrine: Yes Hypothyroidsim, Diabetes, Non-Insulin dep HEENT: Yes Cataract Loss of Vision: Denies Hearing Impairment: Denies Cancer: No (THYROID TUMORS) Skin Did You Recieve Any Treatments: No Psychosocial: Yes Anxiety, Depression Integumentary: No Blood Disorders: No Adverse Reaction/Blood Tranf: No (HAS HAD BLOOD WITH NO REACTION) Family Medical History No Pertinent Family Hx Physical Exam Vital Signs Vital Signs - First Documented 10/15/22 11:07 Temp 37.0 Pulse 111 Resp 16 B/P (MAP) 130/95 (107) Pulse Ox 99 O2 Delivery Room Air Capillary Refill : Less Than 3 Seconds Height, Weight, BMI Height: 4'11.00" Weight: 150lbs. 0.0oz. [id number]; 29.00 BMI Method:Actual General Appearance: No Apparent Distress, WD/WN Eyes: Bilateral Eye Normal Inspection, Bilateral Eye PERRL, Bilateral Eye EOMI HEENT: PERRL/EOMI, TMs Normal, Normal ENT Inspection, Pharynx Normal Neck: Full Range of Motion, Normal Inspection, Non Tender, Supple Respiratory: Chest Non Tender, Lungs Clear, Normal Breath Sounds, No Accessory Muscle Use, No Respiratory Distress Cardiovascular: No Gallop, No JVD, No Murmur, Tachycardia Gastrointestinal: Normal Bowel Sounds, No Organomegaly, No Pulsatile Mass, Non Tender Back: Normal Inspection, No CVA Tenderness, No Vertebral Tenderness Extremity: Normal Capillary Refill, Normal Inspection Neurologic/Psychiatric: Alert, Oriented x3, No Motor/Sensory Deficits, Normal Mood/Affect, manager parking II-XII Norm as Tested Skin: Normal Color, Warm/Dry Progress/Results/Core Measures Suspected Sepsis SIRS Temperature: Pulse: 111 Respiratory Rate: 16 Laboratory Tests 10/15/22 11:26: White Blood Count 6.4 Blood Pressure 130 /95 Mean: 107 Laboratory Tests 10/15/22 11:26: Creatinine 1.08, INR Comment 1.1, Platelet Count 327, Total Bilirubin 0.5 Results/Orders Lab Results Laboratory Tests Test 10/15/22 11:26 10/15/22 11:35 10/15/22 12:25 Range/Units White Blood Count 6.4 4.3-11.0 10^3/uL Red Blood Count 4.62 3.80-5.11 10^6/uL Hemoglobin 11.4 L 11.5-16.0 g/dL Hematocrit 38 35-52 % Mean Corpuscular Volume 82 80-99 fL Mean Corpuscular Hemoglobin 25 25-34 pg Mean Corpuscular Hemoglobin Concent 30 L 32-36 g/dL Red Cell Distribution Width 16.1 H 10.0-14.5 % Platelet Count 327 130-400 10^3/uL Mean Platelet Volume 11.3 9.0-12.2 fL Immature Granulocyte % (Auto) 1 % Neutrophils (%) (Auto) 60 42-75 % Lymphocytes (%) (Auto) 31 12-44 % Monocytes (%) (Auto) 6 0-12 % Eosinophils (%) (Auto) 1 0-10 % Basophils (%) (Auto) 1 0-10 % Neutrophils # (Auto) 3.9 1.8-7.8 10^3/uL Lymphocytes # (Auto) 2.0 1.0-4.0 10^3/uL Monocytes # (Auto) 0.4 0.0-1.0 10^3/uL Eosinophils # (Auto) 0.1 0.0-0.3 10^3/uL Basophils # (Auto) 0.1 0.0-0.1 10^3/uL Immature Granulocyte # (Auto) 0.0 0.0-0.1 10^3/uL Prothrombin Time 14.0 12.2-14.7 SEC INR Comment 1.1 0.8-1.4 Activated Partial Thromboplast Time 29 24-35 SEC D-Dimer < 0.27 0.00-0.49 UG/ML Sodium Level 138 135-145 MMOL/L Potassium Level 4.3 3.6-5.0 MMOL/L Chloride Level 107 98-107 MMOL/L Carbon Dioxide Level 22 21-32 MMOL/L Anion Gap 9 5-14 MMOL/L Blood Urea Nitrogen 22 H 7-18 MG/DL Creatinine 1.08 0.60-1.30 MG/DL Estimat Glomerular Filtration Rate 54 BUN/Creatinine Ratio 20 Glucose Level 146 H 70-105 MG/DL Calcium Level 9.1 8.5-10.1 MG/DL Corrected Calcium 9.2 8.5-10.1 MG/DL Magnesium Level 1.9 1.6-2.4 MG/DL Total Bilirubin 0.5 0.1-1.0 MG/DL Aspartate Amino Transf (AST/SGOT) 29 5-34 U/L Alanine Aminotransferase (ALT/SGPT) 32 0-55 U/L Alkaline Phosphatase 104 40-136 U/L Myoglobin 30.3 10.0-92.0 NG/ML Troponin I < 0.028 <0.028 NG/ML B-Type Natriuretic Peptide 197.4 H <100.0 PG/ML Total Protein 6.8 6.4-8.2 GM/DL Albumin 3.9 3.2-4.5 GM/DL Lipase 20 8-78 U/L Influenza Type A (RT-PCR) Not Detected Not Detecte Influenza Type B (RT-PCR) Not Detected Not Detecte SARS-CoV-2 RNA (RT-PCR) Not Detected Not Detecte Urine Color YELLOW Urine Clarity CLEAR Urine pH 5.5 5-9 Urine Specific [place] 1.025 H 1.016-1.022 Urine Protein NEGATIVE NEGATIVE Urine Glucose (UA) NEGATIVE NEGATIVE Urine Ketones NEGATIVE NEGATIVE Urine Nitrite NEGATIVE NEGATIVE Urine Bilirubin NEGATIVE NEGATIVE Urine Urobilinogen 0.2 < = 1.0 MG/DL Urine Leukocyte Esterase NEGATIVE NEGATIVE Urine RBC (Auto) NEGATIVE NEGATIVE Urine RBC NONE /HPF Urine WBC 0-2 /HPF Urine Squamous Epithelial Cells 2-5 /HPF Urine Crystals NONE /LPF Urine Bacteria TRACE /HPF Urine Casts NONE /LPF Urine Mucus SMALL H /LPF Urine Culture Indicated NO My Orders Orders - CHRISTOPHER,ANDRESSA A PA Cbc With Automated Diff (10/15/22 11:21) Magnesium (10/15/22 11:21) Chest 1 View, Ap/Pa Only (10/15/22 11:21) Ekg Tracing (10/15/22 11:21) Comprehensive Metabolic Panel (10/15/22 11:21) Myoglobin Serum (10/15/22 11:21) Protime With Inr (10/15/22 11:21) Partial Thromboplastin Time (10/15/22 11:21) O2 (10/15/22 11:21) Monitor-Rhythm Ecg Trace Only (10/15/22 11:21) Ed Iv/Invasive Line Start (10/15/22 11:21) Lipase (10/15/22 11:21) Bnp [place] (10/15/22 11:21) Troponin I [place] (10/15/22 11:21) Covid 19 Inhouse Test (10/15/22 11:21) Influenza A And B By Pcr (10/15/22 11:21) Ua Culture If Indicated (10/15/22 11:21) Fibrin Degradation Products (10/15/22 11:59) Enoxaparin Injection (Enoxaparin Injecti (10/15/22 12:30) Ed Admission (Communication) (10/15/22 12:36) Ns Iv 500 Ml (Ns Iv 500 Ml) (10/15/22 12:40) Medications Given in ED Current Medications Medications Dose Ordered Sig/Demetrio Route Start Time Stop Time Status Last Admin Dose Admin Enoxaparin Sodium 70 mg ONCE ONCE SC 10/15/22 12:30 10/15/22 12:31 DC 10/15/22 12:44 70 MG Vital Signs/I&O 10/15/22 11:07 Temp 37.0 Pulse 111 Resp 16 B/P (MAP) 130/95 (107) Pulse Ox 99 O2 Delivery Room Air Capillary Refill : Less Than 3 Seconds Blood Pressure Mean: 107 ECG Comment Atrial flutter tachycardia with rapid ventricular response, nonspecific ST and T wave abnormality, 107 bpm, QRS duration 95 MS, QTc 422 MS Departure Communication (PCP) Patient is a 72-year-old female with a history of coronary artery disease, CHF, atrial fib with dual paced maker who presents to ED for fatigue and weakness for the past week. Shortness of breath with exertion. Chest pain left-sided for the past year and a half. Frequent urination. Recently diagnosed with UTI positive for E. coli. She reports continued urinary symptoms. She is afebrile but tachycardic. She is not hypoxic. 99% on room air. Cardiac work-up was initiated with COVID, influenza, chest x-ray and urinalysis. CBC grossly unremarkable. Chemistry grossly unremarkable. BNP of 197. Normal D-dimer and coags. She is not currently on any type of anticoagulant. Currently on amiodarone and metoprolol for history of A-fib. Interrogated her pacemaker which showed A-fib 2-1 flutter for the past couple days with rapid ventricular response. EKG showed atrial flutter tachycardia with RVR. Patient was given a dose of Lovenox and started on Cardizem drip after consulting with cardiology Dr. Dobbins her exercise specialist. She had a cardiac cath performed last year which showed mild coronary artery disease. Further evaluation is recommended. Consulted Dr. Frances hospitalist who agreed accept patient to ICU. Chest x-ray was negative for pneumonia, pneumothorax. Urinalysis negative for infection Impression Primary Impression: Atrial flutter with rapid ventricular response Disposition: ADMITTED INPATIENT Condition: Stable Admissions Decision to Admit Reason: Admit from ER (General) Decision to Admit/Date: Oct 15, 2022 Time/Decision to Admit Time: 12:26 Departure-Patient Inst. Referrals: TRISTIAN HEATH MD (PCP/Family) Primary Care Physician ANDRESSA CHRISTOPHER Oct 15, 2022 11:30
[2022-10-15 11:37] LABS: BASOPHILS # (AUTO) 0.1 10^3/uL (0.0-0.1); BASOPHILS % (AUTO) 1 % (0-10); EOSINOPHILS # (AUTO) 0.1 10^3/uL (0.0-0.3); EOSINOPHILS % (AUTO) 1 % (0-10); HEMATOCRIT 38 % (35-52); HEMOGLOBIN 11.4 g/dL (11.5-16.0); LYMPHOCYTES % (AUTO) 31 % (12-44); MEAN CORPUSCULAR HEMOGLOBIN 25 pg (25-34); MEAN CORPUSCULAR HGB CONC 30 g/dL (32-36); MEAN CORPUSCULAR VOLUME 82 fL (80-99); MEAN PLATELET VOLUME 11.3 fL (9.0-12.2); MONOCYTES # (AUTO) 0.4 10^3/uL (0.0-1.0); MONOCYTES % (AUTO) 6 % (0-12); NEUTROPHILS # (AUTO) 3.9 10^3/uL (1.8-7.8); NEUTROPHILS % (AUTO) 60 % (42-75); PLATELET COUNT 327 10^3/uL (130-400); WHITE BLOOD COUNT 6.4 10^3/uL (4.3-11.0)
[2022-10-15 11:42] LABS: ALBUMIN 3.9 GM/DL (3.2-4.5); CHLORIDE 107 MMOL/L (98-107); POTASSIUM 4.3 MMOL/L (3.6-5.0); SODIUM 138 MMOL/L (135-145)
[2022-10-15 11:43] LABS: CALCIUM 9.1 MG/DL (8.5-10.1)
[2022-10-15 11:44] LABS: GLUCOSE 146 MG/DL (70-105); TOTAL PROTEIN 6.8 GM/DL (6.4-8.2)
[2022-10-15 11:45] LABS: CARBON DIOXIDE 22 MMOL/L (21-32); INR 1.1 (0.8-1.4)
[2022-10-15 11:46] LABS: BILIRUBIN,TOTAL 0.5 MG/DL (0.1-1.0)
[2022-10-15 11:48] LABS: ALKALINE PHOSPHATASE 104 U/L (40-136); CREATININE SERUM 1.08 MG/DL (0.60-1.30); GFR ESTIMATED 54
[2022-10-15 11:49] LABS: BUN/CREATININE RATIO 20
[2022-10-15 11:51] LABS: ALANINE AMINOTRANSFERASE 32 U/L (0-55); MAGNESIUM 1.9 MG/DL (1.6-2.4)
[2022-10-15 11:52] LABS: LIPASE 20 U/L (8-78)
--- NOTE | 2022-10-15 12:13 | Diagnostic Imaging Report ---
INDICATION: Chest pain. COMPARISON: Comparison is made with prior examination of 09/24/2021. FINDINGS: The heart size is normal. There has been a previous median sternotomy. The lungs are clear. There is no pleural effusion or pneumothorax. The mediastinum is normal. There are postsurgical changes of right shoulder arthroplasty. Pacemaker overlies the left hemithorax. IMPRESSION: No acute cardiopulmonary abnormality. Dictated by: Dictated on workstation # [id number]
[2022-10-15] MEDS ORDERED: ENOXAPARIN 80 MG/0.8 ML SYRINGE SC ONE (12:30)
[2022-10-15] MEDS ORDERED: NS IV 500 ML 500 ML IV STA (12:40)
[2022-10-15 12:42] LABS: BILIRUBIN,URINE NEGATIVE (NEGATIVE); CLARITY,URINE CLEAR; COLOR,URINE YELLOW; GLUCOSE, URINE (UA) NEGATIVE (NEGATIVE); KETONES,URINE NEGATIVE (NEGATIVE); LEUKOCYTE ESTERASE ,URINE NEGATIVE (NEGATIVE); NITRITE,URINE NEGATIVE (NEGATIVE); PH,URINE 5.5 (5-9); PROTEIN,URINE NEGATIVE (NEGATIVE)
[2022-10-15 12:43] LABS: BACTERIA,URINE TRACE /HPF; WBC,URINE 0-2 /HPF
--- NOTE | 2022-10-15 12:50 | Consultation-Cardiology ---
HPI-Cardiology Cardiology Consultation Date of Consultation 10/15/22 Date of Admission Time Seen by Provider: 12:46 Indication: Atrial flutter HPI 72-year-old lady with history of mitral valve replacement using porcine valve in 2018, paroxysmal atrial fibrillation/flutter. Was in her usual state of health, started to have generalized fatigue weakness palpitation and dizzy spells. No full syncope was reported. Came into the emergency room with some chest pain, noted to have atrial flutter with 2-1 conduction. On my evaluation she was laying down comfortably in bed, anxious. Reported that she ran out of uTaP for about 4 to 5 months. Home Medications & Allergies Allergies: Coded Allergies: vancomycin (Verified Allergy, Severe, HIVES, DIFFICULTY BREATHING, 07/05/19) Penicillins (Verified Allergy, Unknown, 09/24/21) Home Medication List Reviewed: Yes OPY-Vendgd-Qdsslj Hx Patient Social History Marital Status: 2nd Hand Smoke Exposure: No Recent Hopitalizations: No Alcohol Use?: No Immunizations Up To Date Tetanus Booster (TDap): Unknown Date of Pneumonia Vaccine: Apr 08, 2020 Date of Influenza Vaccine: Dec 02, 2020 Past Medical History Discussed below Family Medical History Significant Family History: No Pertinent Family Hx Review of Systems-General Review of Systems Constitutional: No chills, No diaphoresis; malaise, weakness EENTM: No ear pain, No blurred vision, No double vision Respiratory: cough, dyspnea on exertion Cardiovascular: chest pain, palpitations Gastrointestinal: No abdominal pain, No constipation; diarrhea; No nausea, No vomiting Genitourinary: No decreased output, No discharge Musculoskeletal: No back pain, No joint pain Skin: No change in color, No change in hair/nails Psychiatric/Neurological: No Symptoms Reported, See HPI All Other Systems Reviewed Negative Unless Noted: Yes Reviewed Test Results Reviewed Test Results Lab Laboratory Tests Test 10/15/22 11:26 10/15/22 11:35 10/15/22 12:25 Range/Units White Blood Count 6.4 4.3-11.0 10^3/uL Red Blood Count 4.62 3.80-5.11 10^6/uL Hemoglobin 11.4 L 11.5-16.0 g/dL Hematocrit 38 35-52 % Mean Corpuscular Volume 82 80-99 fL Mean Corpuscular Hemoglobin 25 25-34 pg Mean Corpuscular Hemoglobin Concent 30 L 32-36 g/dL Red Cell Distribution Width 16.1 H 10.0-14.5 % Platelet Count 327 130-400 10^3/uL Mean Platelet Volume 11.3 9.0-12.2 fL Immature Granulocyte % (Auto) 1 % Neutrophils (%) (Auto) 60 42-75 % Lymphocytes (%) (Auto) 31 12-44 % Monocytes (%) (Auto) 6 0-12 % Eosinophils (%) (Auto) 1 0-10 % Basophils (%) (Auto) 1 0-10 % Neutrophils # (Auto) 3.9 1.8-7.8 10^3/uL Lymphocytes # (Auto) 2.0 1.0-4.0 10^3/uL Monocytes # (Auto) 0.4 0.0-1.0 10^3/uL Eosinophils # (Auto) 0.1 0.0-0.3 10^3/uL Basophils # (Auto) 0.1 0.0-0.1 10^3/uL Immature Granulocyte # (Auto) 0.0 0.0-0.1 10^3/uL Prothrombin Time 14.0 12.2-14.7 SEC INR Comment 1.1 0.8-1.4 Activated Partial Thromboplast Time 29 24-35 SEC D-Dimer < 0.27 0.00-0.49 UG/ML Sodium Level 138 135-145 MMOL/L Potassium Level 4.3 3.6-5.0 MMOL/L Chloride Level 107 98-107 MMOL/L Carbon Dioxide Level 22 21-32 MMOL/L Anion Gap 9 5-14 MMOL/L Blood Urea Nitrogen 22 H 7-18 MG/DL Creatinine 1.08 0.60-1.30 MG/DL Estimat Glomerular Filtration Rate 54 BUN/Creatinine Ratio 20 Glucose Level 146 H 70-105 MG/DL Calcium Level 9.1 8.5-10.1 MG/DL Corrected Calcium 9.2 8.5-10.1 MG/DL Magnesium Level 1.9 1.6-2.4 MG/DL Total Bilirubin 0.5 0.1-1.0 MG/DL Aspartate Amino Transf (AST/SGOT) 29 5-34 U/L Alanine Aminotransferase (ALT/SGPT) 32 0-55 U/L Alkaline Phosphatase 104 40-136 U/L Myoglobin 30.3 10.0-92.0 NG/ML Troponin I < 0.028 <0.028 NG/ML B-Type Natriuretic Peptide 197.4 H <100.0 PG/ML Total Protein 6.8 6.4-8.2 GM/DL Albumin 3.9 3.2-4.5 GM/DL Lipase 20 8-78 U/L Influenza Type A (RT-PCR) Not Detected Not Detecte Influenza Type B (RT-PCR) Not Detected Not Detecte SARS-CoV-2 RNA (RT-PCR) Not Detected Not Detecte Urine Color YELLOW Urine Clarity CLEAR Urine pH 5.5 5-9 Urine Specific [place] 1.025 H 1.016-1.022 Urine Protein NEGATIVE NEGATIVE Urine Glucose (UA) NEGATIVE NEGATIVE Urine Ketones NEGATIVE NEGATIVE Urine Nitrite NEGATIVE NEGATIVE Urine Bilirubin NEGATIVE NEGATIVE Urine Urobilinogen 0.2 < = 1.0 MG/DL Urine Leukocyte Esterase NEGATIVE NEGATIVE Urine RBC (Auto) NEGATIVE NEGATIVE Urine RBC NONE /HPF Urine WBC 0-2 /HPF Urine Squamous Epithelial Cells 2-5 /HPF Urine Crystals NONE /LPF Urine Bacteria TRACE /HPF Urine Casts NONE /LPF Urine Mucus SMALL H /LPF Urine Culture Indicated NO Physical Exam Physical Exam Vital Signs Vital Signs - First Documented 10/15/22 11:07 Temp 37.0 Pulse 111 Resp 16 B/P (MAP) 130/95 (107) Pulse Ox 99 O2 Delivery Room Air Capillary Refill : Less Than 3 Seconds Height, Weight, BMI Height: 4'11.00" Weight: 150lbs. 0.0oz. [id number]; BMI Method:Actual General Appearance: No Apparent Distress, WD/WN Eyes: Bilateral Eye Normal Inspection, Bilateral Eye PERRL, Bilateral Eye EOMI HEENT: PERRL/EOMI, TMs Normal, Normal ENT Inspection, Pharynx Normal Neck: Full Range of Motion, Normal Inspection, Non Tender, Supple Respiratory: Chest Non Tender, Lungs Clear, Normal Breath Sounds, No Accessory Muscle Use, No Respiratory Distress Cardiovascular: No Gallop, No JVD, No Murmur, Tachycardia Gastrointestinal: Normal Bowel Sounds, No Organomegaly, No Pulsatile Mass, Non Tender Back: Normal Inspection, No CVA Tenderness, No Vertebral Tenderness Extremity: Normal Capillary Refill, Normal Inspection Neurologic/Psychiatric: Alert, Oriented x3, No Motor/Sensory Deficits, Normal Mood/Affect, wash driller II-XII Norm as Tested Skin: Normal Color, Warm/Dry A/P-Cardiology Admission Diagnosis Chest pain Palpitation Paroxysmal atrial flutter Sinus node dysfunction Assessment/Plan Chest pain nonspecific etiology, atypical in presentation History of chronic recurrent chest pain work-up was negative Cardiac catheterization done in September 2021 with mild coronary artery disease nonobstructive disease Palpitations secondary to tachycardia Atrial flutter with 2-1 conduction History of paroxysmal atrial fibrillation and syncope in the past diagnosed in December 2020. Had loop monitor implanted in July 2021 Has been having multiple episode of atrial fibrillation with tachybradycardia episode. She was seen by Dr. Valentina Askew recommended permanent pacemaker, had a pacemaker implanted on September 24, 2021 Had electrical cardioversion on September 24, 2021 Has been taking amiodarone but ran out of her Xarelto for the past 4 to 5 months. We will start Cardizem bolus and a drip KENDALL done in January 2022 with dilated left atrium, prosthetic valve in the mitral position functioning normally. Moderate perivalvular regurgitation. Sinus node dysfunction, status post pacemaker implantation. History of hypotension with orthostatic syncope. We will give her a bolus of IV fluid and monitor History of hypertension, monitor blood pressure Hyperlipidemia, monitor lipids History of anemia with GI bleed and hiatal hernia. GERD and diverticulitis. Mild bilateral carotid stenosis last ultrasound was done in July 2021 MATTHEW VILLALOBOS MD Oct 15, 2022 12:50
--- NOTE | 2022-10-15 12:56 | History & Physical ---
History of Present Illness HPI/Chief Complaint Chief complaint: Atrial flutter with RVR HPI: This is a 72-year-old female who presented with shortness of breath found to have atrial flutter with RVR and congestive heart failure. Cardiology suggested ICU admission on Cardizem drip with Lovenox for stroke prophylaxis. She remains short of breath and anxious. Apparently she ran out of her oral anticoagulation of Xarelto. Source: patient Exam Limitations: clinical condition Date Seen 10/15/22 Time Seen by a Provider: 13:00 Attending Physician Manjula Poole MD PCP Admitting Physician: Attending Physician: Referring Physician Date of Admission Home Medications & Allergies Home Medications Reviewed patient Home Medication Reconciliation performed by pharmacy medication reconciliations is technician and/or nursing. Patients Allergies have been reviewed. Allergies Allergies Coded Allergies vancomycin (Verified Allergy, Severe, HIVES, DIFFICULTY BREATHING, 07/05/19) Penicillins (Verified Allergy, Unknown, 09/24/21) Past Czvkcnw-Agnoee-Kwjrzw Hx Past Med/Social Hx: Reviewed Nursing Past Med/Soc Hx, Reviewed and Corrections made Patient Social History Marrital Status: Employed/Student: retired Smoking Status: Former Smoker 2nd Hand Smoke Exposure: No Recent Hopitalizations: No Immunizations Up To Date Tetanus Booster (TDap): Unknown Date of Pneumonia Vaccine: Apr 08, 2020 Date of Influenza Vaccine: Dec 02, 2020 Seasonal Allergies Seasonal Allergies: Yes (MILD) Past Medical History Surgeries: Appendectomy, Cardiac, Section, Hysterectomy, Joint Replacement, Orthopedic Currently Using BIPAP: No Cardiac: Atrial Fibrillation, High Cholesterol, Hypertension, Syncope, Valvular Heart Disease Neurological: Vertigo Reproductive: No Sexually Transmitted Disease: No HIV/AIDS: No Hysterectomy Genitourinary: UTI-Chronic Gastrointestinal: Gastroesophageal Reflux, Diverticulosis, Chronic Diarrhea Endocrine: Hypothyroidsim, Diabetes, Non-Insulin dep HEENT: Cataract Loss of Vision: Denies Hearing Impairment: Denies Cancer: Skin Did You Recieve Any Treatments: No Psychosocial: Anxiety, Depression History of Blood Disorders: No Adverse Reaction to Blood Oliva: No (HAS HAD BLOOD WITH NO REACTION) Family History No Pertinent Family Hx Review of Systems Constitutional: see HPI Respiratory: dyspnea on exertion, short of breath Cardiovascular: palpitations Physical Exam Physical Exam Vital Signs Vital Signs - First Documented 10/15/22 11:07 Temp 37.0 Pulse 111 Resp 16 B/P (MAP) 130/95 (107) Pulse Ox 99 O2 Delivery Room Air Capillary Refill : Less Than 3 Seconds Height, Weight, BMI Height: 4'11.00" Weight: 150lbs. 0.0oz. 68.113183uk; BMI Method:Actual General Appearance: No Apparent Distress, WD/WN, Chronically ill Eyes: Bilateral Eye Normal Inspection, Bilateral Eye PERRL, Bilateral Eye EOMI HEENT: PERRL/EOMI, TMs Normal, Normal ENT Inspection, Pharynx Normal Neck: Full Range of Motion, Normal Inspection, Non Tender, Supple Respiratory: Chest Non Tender, Lungs Clear, Normal Breath Sounds, No Accessory Muscle Use, No Respiratory Distress Cardiovascular: No Gallop, No JVD, No Murmur, Irregularly Irregular, Tachycardia Gastrointestinal: Normal Bowel Sounds, No Organomegaly, No Pulsatile Mass, Non Tender Back: Normal Inspection, No CVA Tenderness, No Vertebral Tenderness Extremity: Normal Capillary Refill, Normal Inspection Neurologic/Psychiatric: Alert, Oriented x3, No Motor/Sensory Deficits, Normal 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 Assessment/Plan Admission Diagnosis Assessment: Atrial flutter with RVR Congestive heart failure with volume overload Hypoxia requiring oxygen supplementation Noncompliance with oral anticoagulation placed on Lovenox in meantime Plan: Cardizem drip Lovenox Supportive care Admission Status: Inpatient Order (span 2 midnights) Reason for Inpatient Admission: Atrial flutter with RVR congestive heart failure will require 3 days JS MELLO DO Oct 15, 2022 12:56
[2022-10-15] MEDS ORDERED: ENOXAPARIN 100 MG/1 ML SYRINGE SC SCH ×2 (13:00→13:30)
[2022-10-15] MEDS ORDERED: ACETAMINOPHEN 325 MG TABLET PO PRN (13:30)
[2022-10-15] MEDS ORDERED: ONDANSETRON INJECTION 4 MG/2 ML (SDV) IV PRN (13:30)
[2022-10-15] MEDS ORDERED: LACTULOSE SYRUP 10GM/15ML 30ML UDC PO PRN (13:30)
[2022-10-15] MEDS ORDERED: MELATONIN 3 MG TABLET PO PRN (13:30)
[2022-10-15] MEDS ORDERED: NALOXONE 0.4 MG/ML 1 ML VIAL IV PRN (13:30)
[2022-10-15] MEDS ORDERED: CALCIUM CARBONATE 500 MG CHEW TABLET PO PRN (13:30)
[2022-10-15] MEDS ORDERED: HYDROmorphone INJECTION 2 MG/ML VIAL IV PRN (13:30)
[2022-10-15] MEDS ORDERED: MILK OF MAGNESIA 400 MG/5 ML 30 ML UDC PO PRN (13:30)
[2022-10-15] MEDS ORDERED: ONDANSETRON 4 MG ORAL DISSOLVE TABLET PO PRN (13:30)
[2022-10-15] MEDS ORDERED: diphenhydrAMINE INJ 50 MG/ML VIAL IVP PRN (13:30)
[2022-10-15] MEDS ORDERED: ANTACID SUSPENSION 30 ML UDC PO PRN (13:30)
[2022-10-15] MEDS ORDERED: BISACODYL 10 MG SUPPOSITORY PR PRN (13:30)
[2022-10-15] MEDS ORDERED: NS IV 500 ML 500 ML IV PRN (13:30)
[2022-10-15] MEDS ORDERED: diphenhydrAMINE 25 MG TABLET PO PRN (13:30)
[2022-10-15] MEDS: dilTIAZem DRIP PRE-MIX 125 ML IV SCH (14:04)
[2022-10-15] MEDS: oxyCODONE IMMEDIATE RELEASE 5 MG TABLET PO PRN ×2 (14:05→20:08)
[2022-10-15 14:23] VITALS: BP 123/77
[2022-10-15] MEDS ORDERED: RT-ALBUTEROL SULF 2.5 MG/3 ML PRE-MIX VIAL INH PRN (14:30)
[2022-10-15] MEDS: inSUlin ASPART 1 UNIT/0.01 ML (PER UNIT) SC SCH ×2 (15:49→21:00)
--- NOTE | 2022-10-15 18:11 | Tele-ICU Progress Note ---
Subjective Date Seen by a Provider: Oct 15, 2022 Time Seen by a Provider: 18:10 Subjective/Events-last exam (Tele-ICU Physician , consultation as per request of PCP Service provided via interactive audio and video telecommunications E-CARE system to a patient admitted to ICU bed in [facility]. Available chart/ vitals / labs / Images reviewed H&P is from ER notes Patient's information available about PMH, Shx, Fhx allergy reviewed inEMR. ROS as per chart and RN report Now in ICU, hemodynamically stable Video assessment done using teleICU camera, rest of exam as per RN Discussed with RN. Hospital course: 10/15 - 72 y/o F - A Fib RVR - ^Fatigue/^Weakness - Cardizem ftt Drip to start - Ran out of Xarelto 4-5 months ago. A/P CAD Cardiac catheterization done in September 2021 with mild coronary artery disease nonobstructive disease Atrial flutter with 2-1 conduction - Sinus node dysfunction, status post pacemaker implantation. -h/o PAF with tachybradycardia, s/p cardioversion 2021 -on po amio [employer] - OFF Xarelto for the past 4 month ( run out "- started on lovenox now - cards consulte - cardizemn gtt MVR - looks Ok on ECHO 2021 Recently diagnosed with E. coli [employer] W[employer]HOUSE [employer] - finished 10 days abx and finished 5 days ago -UA WNL DM II - ISS H/o anemia -with GI bleed Lines : , (Central Line Necessity Reviewed) Cardoza: OG: Nutrition: Analgesia: Anxiety/ delirium VTE Prophylaxis: markell 40 bid Stress Ulcer Prophylaxis: Plans in collaboration with bedside consultants and IM MDs. Discussed with RN to reach out if any questions or concerns A total of 15 minutes of critical care time was devoted to this patient today, required to treat and/or prevent further deterioration of critical care condition ( as above ) . I am remotely monitoring this patient from another state. I am unable to do the bedside exam, and history/physical and pertinent information is taken from other notes in the computer and bedside staff. . Sepsis Event Evaluation Height, Weight, BMI Height: 4'11.00" Weight: 150lbs. 0.0oz. 68.697919kz; 34.31 BMI Method:Actual Exam Exam Patient acknowledged, consented, and participated in this virtual visit which was conducted using real time audio/video Vital Signs Date Time Temp Pulse Resp B/P (MAP) Pulse Ox O2 Delivery O2 Flow Rate FiO2 10/15/22 16:45 95 11 111/71 (84) 93 Room Air 10/15/22 16:30 104 12 117/83 (92) 93 Room Air 10/15/22 16:15 106 13 110/62 (84) 94 Room Air 10/15/22 16:00 99 Room Air 10/15/22 16:00 11 110/72 (80) 94 Room Air 10/15/22 15:45 101 12 130/76 (106) 99 Room Air 10/15/22 15:30 110 14 122/78 (84) 98 Room Air 10/15/22 15:15 108 15 132/80 (98) 94 Room Air 10/15/22 15:00 109 12 127/84 (98) 95 Room Air 10/15/22 14:45 107 13 134/73 (98) 95 Room Air 10/15/22 14:30 109 9 122/62 (87) 95 Room Air 10/15/22 14:23 37.0 108 99 10/15/22 14:15 106 15 124/68 (95) 95 Room Air 10/15/22 14:04 108 123/77 10/15/22 14:00 106 13 123/77 (93) 97 Room Air 10/15/22 13:45 107 24 131/65 (87) 99 Room Air 10/15/22 13:30 105 11 138/96 (110) 100 Room Air 10/15/22 13:22 105 10/15/22 13:20 99 Room Air 10/15/22 13:15 105 19 131/85 (100) 100 Room Air 10/15/22 13:00 108 13 122/86 100 Room Air 10/15/22 11:07 37.0 111 16 130/95 (107) 99 Room Air Height & Weight Height: 4'11.00" Weight: 150lbs. 0.0oz. 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
[2022-10-15] MEDS: SENNOSIDES 8.6 MG TABLET PO SCH (21:00)
[2022-10-15] MEDS: DOCUSATE SODIUM 100 MG CAPSULE PO SCH (21:00)
[2022-10-16] MEDS: ENOXAPARIN 80 MG/0.8 ML SYRINGE SC SCH ×2 (01:32→14:57)
[2022-10-16 05:35] LABS: BASOPHILS # (AUTO) 0.1 10^3/uL (0.0-0.1); BASOPHILS % (AUTO) 1 % (0-10); EOSINOPHILS # (AUTO) 0.1 10^3/uL (0.0-0.3); EOSINOPHILS % (AUTO) 2 % (0-10); HEMATOCRIT 34 % (35-52); HEMOGLOBIN 10.3 g/dL (11.5-16.0); LYMPHOCYTES % (AUTO) 45 % (12-44); MEAN CORPUSCULAR HEMOGLOBIN 25 pg (25-34); MEAN CORPUSCULAR HGB CONC 31 g/dL (32-36); MEAN CORPUSCULAR VOLUME 81 fL (80-99); MEAN PLATELET VOLUME 11.7 fL (9.0-12.2); MONOCYTES # (AUTO) 0.4 10^3/uL (0.0-1.0); MONOCYTES % (AUTO) 6 % (0-12); NEUTROPHILS # (AUTO) 3.1 10^3/uL (1.8-7.8); NEUTROPHILS % (AUTO) 45 % (42-75); PLATELET COUNT 311 10^3/uL (130-400); WHITE BLOOD COUNT 6.7 10^3/uL (4.3-11.0)
[2022-10-16 05:46] LABS: ALBUMIN 3.4 GM/DL (3.2-4.5); POTASSIUM 4.1 MMOL/L (3.6-5.0)
[2022-10-16 05:47] LABS: CALCIUM 8.6 MG/DL (8.5-10.1)
[2022-10-16 05:49] LABS: TOTAL PROTEIN 5.9 GM/DL (6.4-8.2)
[2022-10-16 05:50] LABS: BILIRUBIN,TOTAL 0.6 MG/DL (0.1-1.0)
[2022-10-16] MEDS: inSUlin ASPART 1 UNIT/0.01 ML (PER UNIT) SC SCH ×4 (05:50→21:21)
[2022-10-16] MEDS: POTASSIUM CHLORIDE 20 MEQ TABLET PO SCH (05:50)
[2022-10-16] MEDS: POTASSIUM CL 10MEQ/50ML IVPB 50 ML IV SCH (05:50)
[2022-10-16 05:52] LABS: CREATININE SERUM 1.03 MG/DL (0.60-1.30); PHOSPHORUS 4.1 MG/DL (2.3-4.7)
[2022-10-16 05:55] LABS: MAGNESIUM 1.8 MG/DL (1.6-2.4)
[2022-10-16] MEDS: MAGNESIUM 1 GM/100 ML IVPB 100 ML IV SCH ×3 (06:07→07:39)
--- NOTE | 2022-10-16 08:04 | Diagnostic Imaging Report ---
EXAMINATION: Chest 1 view HISTORY: Heart failure COMPARISON: 10/15/2022 FINDINGS: Heart is upper limits of normal in size for portable technique. There is mild edema. No pneumothorax. No pleural effusion. A pacemaker is present. IMPRESSION: 1. Mild edema. Dictated by: Dictated on workstation # [id number]
[2022-10-16] MEDS: AMIODARONE 200 MG TABLET PO SCH (08:52)
[2022-10-16] MEDS: PANTOPRAZOLE 40 MG TABLET PO SCH (08:53)
[2022-10-16] MEDS: SENNOSIDES 8.6 MG TABLET PO SCH ×2 (08:54→22:19)
[2022-10-16] MEDS: DOCUSATE SODIUM 100 MG CAPSULE PO SCH ×2 (08:54→22:19)
[2022-10-16] MEDS ORDERED: PARO40TA3 PO (09:47)
[2022-10-16] MEDS ORDERED: METF-399 PO (09:47)
--- NOTE | 2022-10-16 10:44 | Tele-ICU Progress Note ---
Subjective Date Seen by a Provider: Oct 16, 2022 Time Seen by a Provider: 10:44 Subjective/Events-last exam (Tele-ICU Physician , Progress Note ) Service provided via interactive audio and video telecommunications E-CARE system to a patient admitted to ICU bed in [facility]. Patient is seen today due to persistent need of ICU care Available chart/ vitals / labs / Images reviewed Video assessment done using teleICU camera, rest of exam as per RN Discussed with RN Events overnight : Hospital course: 10/15 - 72 y/o F - A Fib RVR - ^Fatigue/^Weakness - Cardizem ftt Drip to start - Ran out of Xarelto 4-5 months ago. A/P CAD Cardiac catheterization done in September 2021 with mild coronary artery disease nonobstructive disease Atrial flutter with 2-1 conduction - Sinus node dysfunction, status post pacemaker implantation. 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 Discussed with RN to reach out if any questions or concerns A total of 5 minutes of critical care time was devoted to this patient today, required to treat and/or prevent further deterioration of critical care condition ( as above ) . I am remotely monitoring this patient from another state. I am unable to do the bedside exam, and history/physical and pertinent information is taken from other notes in the computer and bedside staff. . Sepsis Event Evaluation Height, Weight, BMI Height: 4'11.00" Weight: 150lbs. 0.0oz. 68.079713by; 34.26 BMI Method:Actual Exam Exam Patient acknowledged, consented, and participated in this virtual visit which was conducted using real time audio/video Vital Signs Date Time Temp Pulse Resp B/P (MAP) Pulse Ox O2 Delivery O2 Flow Rate FiO2 10/16/22 10:00 103 15 115/68 (88) 100 Room Air 10/16/22 09:00 108 26 105/84 (92) 94 Room Air 10/16/22 08:00 98 11 91/61 (69) 93 Room Air 10/16/22 08:00 97 Room Air 10/16/22 07:00 102 17 100/52 (72) 92 Room Air 10/16/22 07:00 96 10/16/22 06:00 104 13 102/61 (75) 92 Room Air 10/16/22 05:00 89 12 96/69 (78) 93 Room Air 10/16/22 04:00 36.2 10/16/22 04:00 101 21 117/93 (101) 96 Room Air 10/16/22 04:00 96 Room Air 10/16/22 03:00 101 15 98/59 (72) 91 Room Air 10/16/22 02:00 101 15 105/64 (78) 91 Room Air 10/16/22 01:00 103 17 99/62 (74) 92 Room Air 10/16/22 01:00 105 10/16/22 00:00 105 14 99/57 (71) 93 Room Air 10/16/22 00:00 36.3 10/15/22 23:59 97 Room Air 10/15/22 23:00 100 13 98/60 (73) 94 Room Air 10/15/22 22:00 98 15 97/58 (71) 92 Room Air 10/15/22 21:00 85 14 104/57 (73) 97 Room Air 10/15/22 20:00 79 17 106/76 (86) 95 Room Air 10/15/22 20:00 98 Room Air 10/15/22 19:53 36.5 10/15/22 19:00 111 10/15/22 19:00 106 17 118/84 (95) 96 Room Air 10/15/22 18:00 96 16 104/78 (87) 98 Room Air 10/15/22 17:00 94 8 112/75 (87) 95 Room Air 10/15/22 16:45 95 11 111/71 (84) 93 Room Air 10/15/22 16:30 104 12 117/83 (92) 93 Room Air 10/15/22 16:15 106 13 110/62 (84) 94 Room Air 10/15/22 16:00 99 Room Air 10/15/22 16:00 11 110/72 (80) 94 Room Air 10/15/22 15:45 101 12 130/76 (106) 99 Room Air 10/15/22 15:30 110 14 122/78 (84) 98 Room Air 10/15/22 15:15 108 15 132/80 (98) 94 Room Air 10/15/22 15:00 109 12 127/84 (98) 95 Room Air 10/15/22 14:45 107 13 134/73 (98) 95 Room Air 10/15/22 14:30 109 9 122/62 (87) 95 Room Air 10/15/22 14:23 37.0 108 99 10/15/22 14:15 106 15 124/68 (95) 95 Room Air 10/15/22 14:04 108 123/77 10/15/22 14:00 106 13 123/77 (93) 97 Room Air 10/15/22 13:45 107 24 131/65 (87) 99 Room Air 10/15/22 13:30 105 11 138/96 (110) 100 Room Air 10/15/22 13:22 105 10/15/22 13:20 99 Room Air 10/15/22 13:15 105 19 131/85 (100) 100 Room Air 10/15/22 13:00 108 13 122/86 100 Room Air 10/15/22 11:07 37.0 111 16 130/95 (107) 99 Room Air I & O 10/16/22 07:00 Intake Total 1400 ml Output Total 1100 ml Balance 300 ml Height & Weight Height: 4'11.00" Weight: 150lbs. 0.0oz. 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
--- NOTE | 2022-10-16 13:12 | Progress Note ---
ADRIAN CALZADA 10/16/22 1312: Subjective Date Seen by a Provider: Oct 16, 2022 Time Seen by a Provider: 10:15 Subjective/Events-last exam Pt states that she feels better today, although she feels confused about situation. She is still having chest heaviness which she has had for at least the past year. She is having some nausea and anxiety. Pt states when she stands up to use the restroom, she gets cold, clammy, more nauseous, dizzy, and weak which is her baseline, but she believes it is worse than normal. She denies any fever, diarrhea, vomiting, and constipation. Review of Systems General: Chills, Fatigue Pulmonary: No Dyspnea, No Cough Cardiovascular: Chest Pain (described as heaviness), Palpitations (when standing up ), Orthopnea Gastrointestinal: Nausea; No: Vomiting, Diarrhea, Constipation Genitourinary: No Dysuria Neurological: Weakness, Confusion Objective Exam Last Set of Vital Signs Vital Signs Date Time Temp Pulse Resp B/P (MAP) Pulse Ox O2 Delivery O2 Flow Rate FiO2 10/16/22 12:27 88 10/16/22 12:16 95 Room Air 10/16/22 12:00 10 10/16/22 11:49 36.4 Capillary Refill : Less Than 3 Seconds I&O Intake and Output 10/16/22 00:00 Intake Total 1200 ml Output Total 900 ml Balance 300 ml Intake Oral 700 ml IV Total 500 ml Output Urine Total 900 ml Daily Weight Change No General: Alert, Oriented X3, Cooperative, No Acute Distress HEENT: Atraumatic Lungs: Clear to Auscultation, Normal Air Movement Heart: Regular Rate, Normal S1, Normal S2, No Murmurs Extremities: No Clubbing, No Cyanosis Neuro: Normal Speech Psych/Mental Status: Mental Status NL, Mood NL Results Lab Laboratory Tests 10/15/22 15:28: Glucometer 124H 10/15/22 20:37: Glucometer 136H 10/16/22 04:40: White Blood Count 6.7, Red Blood Count 4.14, Hemoglobin 10.3L, Hematocrit 34L, Mean Corpuscular Volume 81, Mean Corpuscular Hemoglobin 25, Mean Corpuscular Hemoglobin Concent 31L, Red Cell Distribution Width 16.0H, Platelet Count 311, Mean Platelet Volume 11.7, Immature Granulocyte % (Auto) 1, Neutrophils (%) (Auto) 45, Lymphocytes (%) (Auto) 45H, Monocytes (%) (Auto) 6, Eosinophils (%) (Auto) 2, Basophils (%) (Auto) 1, Neutrophils # (Auto) 3.1, Lymphocytes # (Auto) 3.0, Monocytes # (Auto) 0.4, Eosinophils # (Auto) 0.1, Basophils # (Auto) 0.1, Immature Granulocyte # (Auto) 0.0, Sodium Level 135, Potassium Level 4.1, Chloride Level 107, Carbon Dioxide Level 18L, Anion Gap 10, Blood Urea Nitrogen 21H, Creatinine 1.03, Estimat Glomerular Filtration Rate 57, BUN/Creatinine Ratio 20, Glucose Level 126H, Calcium Level 8.6, Corrected Calcium 9.1, Phosphorus Level 4.1, Magnesium Level 1.8, Total Bilirubin 0.6, Aspartate Amino Transf (AST/SGOT) 35H, Alanine Aminotransferase (ALT/SGPT) 33, Alkaline P hosphatase 95, Total Protein 5.9L, Albumin 3.4 10/16/22 10:28: Glucometer 134H Microbiology 10/15/22 MRSA Screen - Final, Complete MRSA not isolated Assessment/Plan Assessment/Plan Assess & Plan/Chief Complaint Assessment 1. Atrial Flutter with RVR 2. CHF 3. Noncompliance with oral anticoagulation Plan 1. Cardizem 2. Lovenox 3. O2 and Fluids as needed KIRSTIN FRANCES DO 10/17/22 0643: Subjective Subjective/Events-last exam Patient doing pretty well Awaiting cardiology consult Patient appears to have cognitive deficit Objective Exam General: Alert Lungs: Clear to Auscultation Heart: Regular Rate Assessment/Plan Assessment/Plan Assess & Plan/Chief Complaint Supportive care Antiarrhythmics Supervisory-Addendum Brief Verification & Attestation Participated in pt care: history, MDM, physical Personally performed: exam, history, MDM, supervision of care Care discussed with: Medical Student Procedures: n/a Results interpretation: Verified all documentation Verification and Attestation of Medical Student E/M Service A medical student performed and documented this service in my presence. I reviewed and verified all information documented by the medical student and made modifications to such information, when appropriate. I personally performed the physical exam and medical decision making. Kirstin Frances, Oct 17, 2022,06:42 ADRIAN CALZADA Oct 16, 2022 13:12 KIRSTIN FRANCES DO Oct 17, 2022 06:43
[2022-10-16] MEDS: dilTIAZem DRIP PRE-MIX 125 ML IV SCH (14:02)
--- NOTE | 2022-10-16 17:39 | Cardiology Progress Note ---
Cardiology SOAP Progress Note Subjective: No significant cardiac complaints. Objective: I&O/Vital Signs 10/16/22 10/16/22 10/16/22 10/16/22 06:00 07:00 07:00 08:00 Pulse 104 96 102 Resp 13 17 B/P (MAP) 102/61 (75) 100/52 (72) Pulse Ox 92 92 97 O2 Delivery Room Air Room Air Room Air 10/16/22 10/16/22 10/16/22 10/16/22 08:00 09:00 10:00 11:00 Pulse 98 108 103 101 Resp 11 26 15 10 B/P (MAP) 91/61 (69) 105/84 (92) 115/68 (88) 101/59 (87) Pulse Ox 93 94 100 96 O2 Delivery Room Air Room Air Room Air Room Air 10/16/22 10/16/22 10/16/22 10/16/22 11:49 12:00 12:16 12:27 Temp 36.4 Pulse 98 88 Resp 10 B/P (MAP) Pulse Ox 95 95 O2 Delivery Room Air Room Air 10/16/22 10/16/22 10/16/22 10/16/22 13:00 13:00 14:00 15:00 Pulse 96 99 98 Resp 16 10 17 B/P (MAP) 112/65 (96) 120/90 (98) 94/75 (86) Pulse Ox 94 97 95 96 O2 Delivery Room Air Room Air Room Air Room Air 10/16/22 10/16/22 10/16/22 10/16/22 16:00 16:00 16:08 17:00 Temp 37.0 Pulse 99 99 Resp 22 18 B/P (MAP) 119/84 (97) 105/77 (88) Pulse Ox 100 94 99 O2 Delivery Room Air Room Air Room Air 10/16/22 00:00 Intake Total 1200 ml Output Total 900 ml Balance 300 ml Weight (Pounds): 150 Weight (Ounces): 0.0 Weight (Calculated Kilograms): 68.646273 Constitutional: AAO x 3 Respiratory: lungs clear to auscultation Cardiovascular: irregularly irregular, tachycardia Gastrointestional: soft Neurologic/Psychiatric: no motor/sensory deficits, alert, normal mood/affect, oriented x 3 Skin: normal color Results/Procedures: Labs Laboratory Tests 10/15/22 20:37: Glucometer 136H 10/16/22 04:40: White Blood Count 6.7, Red Blood Count 4.14, Hemoglobin 10.3L, Hematocrit 34L, Mean Corpuscular Volume 81, Mean Corpuscular Hemoglobin 25, Mean Corpuscular Hemoglobin Concent 31L, Red Cell Distribution Width 16.0H, Platelet Count 311, Mean Platelet Volume 11.7, Immature Granulocyte % (Auto) 1, Neutrophils (%) (Auto) 45, Lymphocytes (%) (Auto) 45H, Monocytes (%) (Auto) 6, Eosinophils (%) (Auto) 2, Basophils (%) (Auto) 1, Neutrophils # (Auto) 3.1, Lymphocytes # (Auto) 3.0, Monocytes # (Auto) 0.4, Eosinophils # (Auto) 0.1, Basophils # (Auto) 0.1, Immature Granulocyte # (Auto) 0.0, Sodium Level 135, Potassium Level 4.1, Chloride Level 107, Carbon Dioxide Level 18L, Anion Gap 10, Blood Urea Nitrogen 21H, Creatinine 1.03, Estimat Glomerular Filtration Rate 57, BUN/Creatinine Ratio 20, Glucose Level 126H, Calcium Level 8.6, Corrected Calcium 9.1, Ph osphorus Level 4.1, Magnesium Level 1.8, Total Bilirubin 0.6, Aspartate Amino Transf (AST/SGOT) 35H, Alanine Aminotransferase (ALT/SGPT) 33, Alkaline Phosphatase 95, Total Protein 5.9L, Albumin 3.4 10/16/22 10:28: Glucometer 134H 10/16/22 16:11: Glucometer 122H Microbiology 10/15/22 MRSA Screen - Final, Complete MRSA not isolated A/P: Assessment/Dx: Chest pain Palpitation Paroxysmal atrial flutter Sinus node dysfunction Plan: Chest pain nonspecific etiology, atypical in presentation History of chronic recurrent chest pain work-up was negative Cardiac catheterization done in September 2021 with mild coronary artery disease nonobstructive disease Palpitations secondary to tachycardia Atrial flutter with 2-1 conduction History of paroxysmal atrial fibrillation and syncope in the past diagnosed in December 2020. Had loop monitor implanted in July 2021 Has been having multiple episode of atrial fibrillation with tachybradycardia episode. She was seen by Dr. Montgomery I recommended permanent pacemaker, had a pacemaker implanted on September 24, 2021 Had electrical cardioversion on September 24, 2021 Has been taking amiodarone but ran out of her Xarelto for the past 4 to 5 months. We will start Cardizem bolus and a drip Not currently on oral anticoagulation due to expense. However she also tells me that she has fallen numerous times recently. She may not be the best candidate for oral anticoagulation. I will let Dr. Dobbins decide about a Watchman device. Discussed about risk of stroke. Will give Lovenox while she is in the hospital. KENDALL done in January 2022 with dilated left atrium, prosthetic valve in the mitral position functioning normally. Moderate perivalvular regurgitation. Sinus node dysfunction, status post pacemaker implantation. History of hypotension with orthostatic syncope. We will give her a bolus of IV fluid and monitor History of hypertension, monitor blood pressure Hyperlipidemia, monitor lipids History of anemia with GI bleed and hiatal hernia. GERD and diverticulitis. Mild bilateral carotid stenosis last ultrasound was done in July 2021 Vinod MALHOTRA MD Oct 16, 2022 17:39
[2022-10-17] MEDS: ENOXAPARIN 80 MG/0.8 ML SYRINGE SC SCH (01:47)
[2022-10-17 05:29] LABS: BASOPHILS % (AUTO) 1 % (0-10); EOSINOPHILS # (AUTO) 0.1 10^3/uL (0.0-0.3); EOSINOPHILS % (AUTO) 2 % (0-10); HEMATOCRIT 32 % (35-52); LYMPHOCYTES # (AUTO) 2.5 10^3/uL (1.0-4.0); LYMPHOCYTES % (AUTO) 42 % (12-44); MEAN CORPUSCULAR HEMOGLOBIN 25 pg (25-34); MEAN CORPUSCULAR HGB CONC 31 g/dL (32-36); MEAN CORPUSCULAR VOLUME 80 fL (80-99); MEAN PLATELET VOLUME 11.5 fL (9.0-12.2); MONOCYTES # (AUTO) 0.5 10^3/uL (0.0-1.0); MONOCYTES % (AUTO) 8 % (0-12); NEUTROPHILS # (AUTO) 2.8 10^3/uL (1.8-7.8); NEUTROPHILS % (AUTO) 48 % (42-75); PLATELET COUNT 312 10^3/uL (130-400); WHITE BLOOD COUNT 5.9 10^3/uL (4.3-11.0)
[2022-10-17 05:40] LABS: ALBUMIN 3.3 GM/DL (3.2-4.5); POTASSIUM 4.1 MMOL/L (3.6-5.0)
[2022-10-17 05:41] LABS: CALCIUM 8.7 MG/DL (8.5-10.1)
[2022-10-17 05:42] LABS: TOTAL PROTEIN 6.2 GM/DL (6.4-8.2)
[2022-10-17 05:44] LABS: BILIRUBIN,TOTAL 0.3 MG/DL (0.1-1.0)
[2022-10-17 05:46] LABS: CREATININE SERUM 1.12 MG/DL (0.60-1.30)
[2022-10-17] MEDS: MAGNESIUM 1 GM/100 ML IVPB 100 ML IV SCH (06:00)
[2022-10-17] MEDS: POTASSIUM CHLORIDE 20 MEQ TABLET PO SCH (06:00)
[2022-10-17] MEDS: POTASSIUM CL 10MEQ/50ML IVPB 50 ML IV SCH (06:00)
[2022-10-17] MEDS: inSUlin ASPART 1 UNIT/0.01 ML (PER UNIT) SC SCH ×2 (06:01→11:22)
[2022-10-17] MEDS: AMIODARONE 200 MG TABLET PO SCH (08:34)
[2022-10-17] MEDS: PANTOPRAZOLE 40 MG TABLET PO SCH (08:34)
--- NOTE | 2022-10-17 08:37 | Progress Note ---
Subjective Date Seen by a Provider: Oct 17, 2022 Time Seen by a Provider: 11:00 Subjective/Events-last exam NO major issues Weak Will move to floor today and then likely DC tomorrow Review of Systems General: Fatigue, Malaise Objective Exam Last Set of Vital Signs Vital Signs Date Time Temp Pulse Resp B/P (MAP) Pulse Ox O2 Delivery O2 Flow Rate FiO2 10/17/22 08:00 105 17 98 Room Air 10/17/22 07:56 36.9 10/17/22 07:32 0.00 Capillary Refill : Less Than 3 Seconds I&O Intake and Output 10/17/22 00:00 Intake Total 1000 ml Output Total 1275 ml Balance -275 ml Intake Oral 800 ml IV Total 200 ml Output Urine Total 1275 ml # Voids 3 # Bowel Movements 1 General: Alert, Oriented X3, Cooperative, No Acute Distress Lungs: Clear to Auscultation, Normal Air Movement Psych/Mental Status: Mental Status NL, Mood NL Results Lab Laboratory Tests 10/16/22 10:28: Glucometer 134H 10/16/22 16:11: Glucometer 122H 10/16/22 21:15: Glucometer 144H 10/17/22 04:56: White Blood Count 5.9, Red Blood Count 4.02, Hemoglobin 10.0L, Hematocrit 32L, Mean Corpuscular Volume 80, Mean Corpuscular Hemoglobin 25, Mean Corpuscular Hemoglobin Concent 31L, Red Cell Distribution Width 15.9H, Platelet Count 312, Mean Platelet Volume 11.5, Immature Granulocyte % (Auto) 0, Neutrophils (%) (Auto) 48, Lymphocytes (%) (Auto) 42, Monocytes (%) (Auto) 8, Eosinophils (%) (Auto) 2, Basophils (%) (Auto) 1, Neutrophils # (Auto) 2.8, Lymphocytes # (Auto) 2.5, Monocytes # (Auto) 0.5, Eosinophils # (Auto) 0.1, Basophils # (Auto) 0.0, Immature Granulocyte # (Auto) 0.0, Sodium Level 139, Potassium Level 4.1, Chloride Level 107, Carbon Dioxide Level 21, Anion Gap 11, Blood Urea Nitrogen 24H, Creatinine 1.12, Estimat Glomerular Filtration Rate 52, BUN/Creatinine Ratio 21, Glucose Level 141H, Calcium Level 8.7, Corrected Calcium 9.3, Phosphorus Level 4.0, Magnesium Level 2.0, Total Bilirubin 0.3, Aspartate Amino Transf (AST/SGOT) 27, Alanine Aminotransferase (ALT/SGPT) 31, Alkaline Phosphatase 93, Total Protein 6.2L, Albumin 3.3 Microbiology 10/15/22 MRSA Screen - Final, Complete MRSA not isolated Assessment/Plan Assessment/Plan Assess & Plan/Chief Complaint Assessment 1. Atrial Flutter with RVR 2. CHF 3. Noncompliance with oral anticoagulation Supportive care Antiarrhythmics JS MELLO DO Oct 17, 2022 08:37
[2022-10-17] MEDS: SENNOSIDES 8.6 MG TABLET PO SCH ×2 (09:02→21:23)
[2022-10-17] MEDS: DOCUSATE SODIUM 100 MG CAPSULE PO SCH ×2 (09:02→21:22)
--- NOTE | 2022-10-17 09:10 | Tele-ICU Progress Note ---
Progress Note video rounds completed (Tele-ICU Physician , Progress Note ) Service provided via interactive audio and video telecommunications E-CARE system to a patient admitted to ICU bed in [facility]. Patient is seen today due to persistent need of ICU care Available chart/ vitals / labs / Images reviewed Video assessment done using teleICU camera, rest of exam as per RN Discussed with RN Events overnight : 72 y/o female with hx of a flutter, admitted with a fib/rvr Had pacemaker in 2021 Was on xarelto and ran out and did not refill due to cost Now on Lovenox 70mg BID PE: HR 105 O2 sat 91% Atrial flutter with 2-1 conduction on PO amiodarone cardiology following IMP: a fib/rvr Plans in collaboration with bedside consultants and IM MDs. Discussed with RN to reach out if any questions or concerns A total of 5 minutes of critical care time was devoted to this patient today, required to treat and/or prevent further deterioration of critical care condition ( as above ) . I am remotely monitoring this patient from another state. I am unable to do the bedside exam, and history/physical and pertinent information is taken from other notes in the computer and bedside staff. Time spent on review 15 minutes Focused Exam Height, Weight, BMI Height: 4'11.00" Weight: 150lbs. 0.0oz. 68.443854lc; 34.13 BMI Method:Actual Labs Laboratory Tests 10/17/22 04:56 Results Results/Procedures Lab Laboratory Tests 10/15/22 11:26 10/16/22 04:40 10/17/22 04:56 Results Labs Labs Laboratory Tests 10/16/22 10:28: Glucometer 134H 10/16/22 16:11: Glucometer 122H 10/16/22 21:15: Glucometer 144H 10/17/22 04:56: White Blood Count 5.9, Red Blood Count 4.02, Hemoglobin 10.0L, Hematocrit 32L, Mean Corpuscular Volume 80, Mean Corpuscular Hemoglobin 25, Mean Corpuscular Hemoglobin Concent 31L, Red Cell Distribution Width 15.9H, Platelet Count 312, M carissa Platelet Volume 11.5, Immature Granulocyte % (Auto) 0, Neutrophils (%) (Auto) 48, Lymphocytes (%) (Auto) 42, Monocytes (%) (Auto) 8, Eosinophils (%) (Auto) 2, Basophils (%) (Auto) 1, Neutrophils # (Auto) 2.8, Lymphocytes # (Auto) 2.5, Monocytes # (Auto) 0.5, Eosinophils # (Auto) 0.1, Basophils # (Auto) 0.0, Immature Granulocyte # (Auto) 0.0, Sodium Level 139, Potassium Level 4.1, Chloride Level 107, Carbon Dioxide Level 21, Anion Gap 11, Blood Urea Nitrogen 24H, Creatinine 1.12, Estimat Glomerular Filtration Rate 52, BUN/Creatinine Ratio 21, Glucose Level 141H, Calcium Level 8.7, Corrected Calcium 9.3, Phosphorus Level 4.0, Magnesium Level 2.0, Total Bilirubin 0.3, Aspartate Amino Transf (AST/SGOT) 27, Alanine Aminotransferase (ALT/SGPT) 31, Alkaline Phosphatase 93, Total Protein 6.2L, Albumin 3.3 Microbiology 10/15/22 MRSA Screen - Final, Complete MRSA not isolated ANJEL ZAMORA MD Oct 17, 2022 09:10
--- NOTE | 2022-10-17 11:26 | Diagnostic Imaging Report ---
INDICATION: Congestive heart failure. Comparison is made with prior exam of 10/16/2022 FINDINGS: There is cardiomegaly. The lungs are clear. There is no pleural effusion or pneumothorax. There has been previous median sternotomy and heart valve replacement. Pacemaker overlies left hemithorax IMPRESSION: No acute cardiopulmonary abnormality. Cardiomegaly. Dictated by: Dictated on workstation # [id number]
[2022-10-17] MEDS ORDERED: ACETAMINOPHEN 325 MG TABLET PO PRN (11:45)
--- NOTE | 2022-10-17 12:36 | Physical Therapy Evaluation ---
PT Evaluation-General Medical Diagnosis Admission Date Oct 15, 2022 at 13:01 Medical Diagnosis: Shortness of breath Onset Date: Oct 15, 2022 Therapy Diagnosis Therapy Diagnosis: Gait deficit Height/Weight Height (Feet): 4 Height (Inches): 11.00 Weight (Pounds): 150 Weight (Ounces): 0.0 Precautions Precautions/Isolations: Fall Prevention, Standard Precautions Weight Bear Status Right Lower Extremity: Right Full Weight Bearing Left Lower Extremity: Left Full Weight Bearing Referral Physician: Dr. Frances Reason for Referral: Evaluation/Treatment Medical History Pertinent Medical History: DM, HTN Reviewed History: Yes Social History Home: Current Living Status: Alone Entry Into Home: Level Entry [place] Prior Prior Level of Function SCALE: Activities may be completed with or without assistive devices. 4-Sqjmpdlepy-beidmqx completes the activity by him/herself with no assistance from a helper. 5-Set-up or Clean-up Assistance-helper sets up or cleans up; patient completes activity. Cedar assists only prior to or following the activity. 4-Supervision or Touching Assistance-helper provides verbal cues and/or touchin g/steadying and/or contact guard assistance as patient completes activity. Assistance may be provided throughout the activity or intermittently. 3-Partial/Moderate Assistance-helper does LESS THAN HALF the effort. Cedar lifts, holds or supports trunk or limbs, but provides less than half the effort. 2-Substantial/Maximal Assistance-helper does MORE THAN HALF the effort. Cedar lifts or holds trunk or limbs and provides more than half the effort. 8-Upcxtlljw-zinubh does ALL the effort. Patient does none of the effort to complete the activity. Or, the assistance of 2 or more helpers is required for the patient to complete the activity. If activity was not attempted, code reason: 7-Patient Refused. 9-Not Applicable-not attempted and the patient did not perform the activity before the current illness, exacerbation or injury. 10-Not Attempted due to Environmental Limitations-(lack of equipment, weather restraints, etc.). 88-Not Attempted due to Medical Conditions or Safety Concerns. Bed Mobility: 6 Transfers (B,C,W/C): 6 Gait: 6 Stairs: 6 Indoor Mobility (Ambulation): Independent Stairs: Independent Prior Devices Use: Walker PT Evaluation-Current Subjective Patient sitting at EOB upon PT arrival, agreeable to treatment. Patient rates pain at 0/10 currently. Objective Patient Orientation: Person, Place, Time, Situation Attachments: Oxygen, Cardoza Catheter, IV ROM/Strength ROM Lower Extremities WFLs BLEs all planes Strength Lower Extremities 4/5 BLEs all planes Sensory Vision: Functional Hearing: Impaired Sensation Right Lower Extremit: Intact Sensation Left Lower Extremity: Intact Transfers Roll Left to Right (QC): 4 Sit to Lying (QC): 4 Lying to Sitting/Side of Bed(Q: 4 Sit to Stand (QC): 4 Chair/Fbs-yo-Jeyce Xfer(QC): 4 Toilet Transfer (QC): 4 Gait Does the Patient Walk?: Yes Mode of Locomotion: Walk Anticipated Mode of Locomotion: Walk Walk 10 feet (QC): 4 Walk 50 ft with 2 Turns(QC): 4 Distance: 100' Gait Assistive Device: FWW Balance Sitting Static: Fair Sitting Dynamic: Fair Standing Static: Fair Standing Dynamic: Fair Assessment/Needs Patient performs all bed mobility and transfers with SBA. Patient ambulates 100 feet with FWW, with CGA and verbal cues for safety, posture, progression and breathing. At midpoint patient reports she is having trouble catching her breath. Patient returns to room. Patient in bed post treatment with all needs met, nursing notified, call light in hand. Rehab Potential: Fair PT Mcfp Goals Clerk Goals PT Mcfp Goals Time Frame: Nov 07, 2022 Roll Left & Right (QC): 6 Sit to Lying (QC): 6 Lying-Sitting on Side/Bed(QC): 6 Sit to Stand (QC): 6 Chair/Opw-al-Tzmqc Xfer(QC): 6 Toilet Transfer (QC): 6 Does the Patient Walk: Yes Walk 10 feet (QC): 6 Walk 50ft with 2 Turns (QC): 6 Walk 150 ft (QC): 6 PT Plan Problem List Problem List: Activity Tolerance, Functional Strength, Safety, Balance, Gait, Transfer, Bed Mobility, ROM Treatment/Plan Treatment Plan: Continue Plan of Care Treatment Plan: Bed Mobility, Education, Functional Activity Billy, Functional Strength, Group Therapy, Gait, Safety, Therapeutic Exercise, Transfers Treatment Duration: Nov 07, 2022 Frequency: 6 times per week Estimated Hrs Per Day: .25 hour per day Safety Risks/Education Patient Education: Gait Training, Transfer Techniques Teaching Recipient: Patient, Family Teaching Methods: Demonstration, Discussion Response to Teaching: Verbalize Understanding, Return Demonstration Time Time In: 1219 Time Out: 1231 DATE: Oct 17, 2022 Total Billed Treatment Time: 12 Total Billed Treatment Visit, TONY CARROLL PT Oct 17, 2022 12:36
[2022-10-17 16:13] VITALS: BP 106/67
--- NOTE | 2022-10-17 17:14 | Cardiology Progress Note ---
Cardiology SOAP Progress Note Subjective: Feels significantly better. Objective: I&O/Vital Signs 10/17/22 10/17/22 10/17/22 10/17/22 06:00 07:00 07:00 07:32 Pulse 94 101 99 Resp 13 10 B/P (MAP) 84/56 (65) 99/73 (80) Pulse Ox 96 96 97 O2 Delivery Room Air Room Air Room Air O2 Flow Rate 0.00 10/17/22 10/17/22 10/17/22 10/17/22 07:56 08:00 08:00 09:00 Temp 36.9 Pulse 105 103 Resp 17 16 B/P (MAP) 126/80 (99) Pulse Ox 95 98 95 O2 Delivery Room Air Room Air Room Air 10/17/22 10/17/22 10/17/22 10/17/22 10:00 11:00 11:48 12:00 Temp 36.6 Pulse 99 99 105 Resp 14 11 17 B/P (MAP) 104/68 (82) 105/64 (81) 101/89 (94) Pulse Ox 96 95 85 O2 Delivery Room Air Room Air Room Air 10/17/22 10/17/22 13:00 16:13 Temp 36.6 Pulse 105 98 Resp 18 B/P (MAP) 106/67 (80) Pulse Ox 97 O2 Delivery Room Air 10/17/22 00:00 Intake Total 700 ml Output Total 775 ml Balance -75 ml Weight (Pounds): 150 Weight (Ounces): 0.0 Weight (Calculated Kilograms): 68.955067 Constitutional: AAO x 3 Respiratory: lungs clear to auscultation Cardiovascular: irregularly irregular, tachycardia Gastrointestional: soft Neurologic/Psychiatric: no motor/sensory deficits, alert, normal mood/affect, oriented x 3 Skin: normal color Results/Procedures: Labs Laboratory Tests 10/16/22 21:15: Glucometer 144H 10/17/22 04:56: White Blood Count 5.9, Red Blood Count 4.02, Hemoglobin 10.0L, Hematocrit 32L, Mean Corpuscular Volume 80, Mean Corpuscular Hemoglobin 25, Mean Corpuscular Hemoglobin Concent 31L, Red Cell Distribution Width 15.9H, Platelet Count 312, Mean Platelet Volume 11.5, Immature Granulocyte % (Auto) 0, Neutrophils (%) (Auto) 48, Lymphocytes (%) (Auto) 42, Monocytes (%) (Auto) 8, Eosinophils (%) (Auto) 2, Basophils (%) (Auto) 1, Neutrophils # (Auto) 2.8, Lymphocytes # (Auto) 2.5, Monocytes # (Auto) 0.5, Eosinophils # (Auto) 0.1, Basophils # (Auto) 0.0, Immature Granulocyte # (Auto) 0.0, Sodium Level 139, Potassium Level 4.1, Chloride Level 107, Carbon Dioxide Level 21, Anion Gap 11, Blood Urea Nitrogen 24H, Creatinine 1.12, Estimat Glomerular Filtration Rate 52, BUN/Creatinine Ratio 21, Glucose Level 141H, Calcium Level 8.7, Corrected Calcium 9.3, Phosphorus Level 4.0, Magnesium Level 2.0, Total Bilirubin 0.3, Aspartate Amino Transf (AST/SGOT) 27, Alanine Aminotransferase (ALT/SGPT) 31, Alkaline Ph osphatase 93, Total Protein 6.2L, Albumin 3.3 Microbiology 10/15/22 MRSA Screen - Final, Complete MRSA not isolated A/P: Assessment/Dx: Chest pain Palpitation Paroxysmal atrial flutter Sinus node dysfunction Plan: Chest pain nonspecific etiology, atypical in presentation History of chronic recurrent chest pain work-up was negative Cardiac catheterization done in September 2021 with mild coronary artery disease nonobstructive disease Palpitations secondary to tachycardia Atrial flutter with 2-1 conduction History of paroxysmal atrial fibrillation and syncope in the past diagnosed in December 2020. Had loop monitor implanted in July 2021 Has been having multiple episode of atrial fibrillation with tachybradycardia episode. She was seen by Dr. Montgomery I recommended permanent pacemaker, had a pacemaker implanted on September 24, 2021 Had electrical cardioversion on September 24, 2021 Has been taking amiodarone but ran out of her Xarelto for the past 4 to 5 months. We will start Cardizem bolus and a drip Not currently on oral anticoagulation due to expense. However she also tells me that she has fallen numerous times recently. She may not be the best candidate for oral anticoagulation. I will let Dr. Dobbins decide about a Watchman device. Discussed about risk of stroke. Will give Lovenox while she is in the hospital. KENDALL done in January 2022 with dilated left atrium, prosthetic valve in the mitral position functioning normally. Moderate perivalvular regurgitation. Sinus node dysfunction, status post pacemaker implantation. History of hypotension with orthostatic syncope. We will give her a bolus of IV fluid and monitor History of hypertension, monitor blood pressure Hyperlipidemia, monitor lipids History of anemia with GI bleed and hiatal hernia. GERD and diverticulitis. Mild bilateral carotid stenosis last ultrasound was done in July 2021 Vinod MALHOTRA MD Oct 17, 2022 17:14
[2022-10-17] MEDS: APIXABAN 5 MG TABLET PO SCH (20:47)
[2022-10-17] MEDS: PARoxetine 20 MG TABLET PO SCH (20:48)
[2022-10-17] MEDS ORDERED: NON-FORMULARY MEDICATION 1 EA EA (Paroxetine HCl 40 MG) PO SCH (21:00)
[2022-10-17 21:08] VITALS: BP 113/58
[2022-10-17 23:43] VITALS: BP 115/62
[2022-10-18] VITALS (10 sets, daily range): BP systolic 89–133; BP diastolic 50–85
--- NOTE | 2022-10-18 06:13 | Progress Note ---
Subjective Date Seen by a Provider: Oct 18, 2022 Time Seen by a Provider: 12:00 Subjective/Events-last exam Patient doing a little bit better High risk for falls Still feels very weak Heart rate monitored on telemetry Review of Systems General: Fatigue, Malaise Objective Exam Last Set of Vital Signs Vital Signs Date Time Temp Pulse Resp B/P (MAP) Pulse Ox O2 Delivery O2 Flow Rate FiO2 10/18/22 04:10 36.8 88 16 110/56 (74) 96 Room Air 10/17/22 07:32 0.00 Capillary Refill : Less Than 3 Seconds I&O Intake and Output 10/18/22 00:00 Intake Total 1750 ml Output Total 575 ml Balance 1175 ml Intake Oral 1750 ml Output Urine Total 575 ml # Voids 5 # Bowel Movements 1 General: Alert, Oriented X3, Cooperative, No Acute Distress Lungs: Clear to Auscultation, Normal Air Movement Heart: Other (Irregular irregular) Psych/Mental Status: Mental Status NL Results Lab Microbiology 10/15/22 MRSA Screen - Final, Complete MRSA not isolated Assessment/Plan Assessment/Plan Assess & Plan/Chief Complaint Assessment 1. Atrial Flutter with RVR 2. CHF 3. Noncompliance with oral anticoagulation 4. high risk for falls with weakness Supportive care Antiarrhythmics JS MELLO DO Oct 18, 2022 06:13
[2022-10-18] MEDS: metFORMIN 500 MG TABLET PO SCH (06:20)
[2022-10-18] MEDS: LEVOTHYROXINE 75 MCG TABLET PO SCH (06:20)
[2022-10-18 07:02] LABS: BASOPHILS % (AUTO) 1 % (0-10); EOSINOPHILS # (AUTO) 0.1 10^3/uL (0.0-0.3); EOSINOPHILS % (AUTO) 2 % (0-10); HEMATOCRIT 35 % (35-52); HEMOGLOBIN 10.7 g/dL (11.5-16.0); LYMPHOCYTES # (AUTO) 2.1 10^3/uL (1.0-4.0); LYMPHOCYTES % (AUTO) 39 % (12-44); MEAN CORPUSCULAR HEMOGLOBIN 25 pg (25-34); MEAN CORPUSCULAR HGB CONC 31 g/dL (32-36); MEAN CORPUSCULAR VOLUME 81 fL (80-99); MEAN PLATELET VOLUME 11.3 fL (9.0-12.2); MONOCYTES # (AUTO) 0.4 10^3/uL (0.0-1.0); MONOCYTES % (AUTO) 7 % (0-12); NEUTROPHILS # (AUTO) 2.6 10^3/uL (1.8-7.8); NEUTROPHILS % (AUTO) 50 % (42-75); PLATELET COUNT 315 10^3/uL (130-400); WHITE BLOOD COUNT 5.2 10^3/uL (4.3-11.0)
[2022-10-18 07:23] LABS: ALBUMIN 3.7 GM/DL (3.2-4.5); BILIRUBIN,TOTAL 0.4 MG/DL (0.1-1.0); CALCIUM 8.8 MG/DL (8.5-10.1); CREATININE SERUM 0.97 MG/DL (0.60-1.30); MAGNESIUM 1.9 MG/DL (1.6-2.4); POTASSIUM 4.1 MMOL/L (3.6-5.0); TOTAL PROTEIN 6.5 GM/DL (6.4-8.2)
[2022-10-18] MEDS ORDERED: NON-FORMULARY MEDICATION 1 EA EA (Metformin HCl 500 MG) PO SCH (09:00)
[2022-10-18] MEDS ORDERED: PANTOPRAZOLE 40 MG TABLET PO SCH (09:00)
[2022-10-18] MEDS: PANTOPRAZOLE 40 MG TABLET PO SCH (09:38)
[2022-10-18] MEDS: APIXABAN 5 MG TABLET PO SCH ×2 (09:38→20:30)
[2022-10-18] MEDS: DOCUSATE SODIUM 100 MG CAPSULE PO SCH ×2 (09:39→20:31)
[2022-10-18] MEDS: SENNOSIDES 8.6 MG TABLET PO SCH ×2 (09:39→20:30)
[2022-10-18] MEDS: AMIODARONE 200 MG TABLET PO SCH (09:39)
[2022-10-18] MEDS ORDERED: PATIENT MAY USE OWN MED,SINGLE MED PO SCH (12:15)
--- NOTE | 2022-10-18 13:46 | Cardiology Progress Note ---
Cardiology SOAP Progress Note Subjective: no significant cardiac complaints Objective: I&O/Vital Signs 10/18/22 10/18/22 10/18/22 10/18/22 11:54 12:42 16:59 17:02 Temp 36.7 37.0 37.0 Pulse 97 96 100 100 Resp 18 18 18 B/P (MAP) 117/65 (82) 133/80 (97) 133/80 (97) Pulse Ox 99 100 100 O2 Delivery Room Air Room Air Room Air 10/18/22 10/18/22 10/18/22 19:00 19:15 21:00 Temp 36.7 Pulse 95 94 Resp 18 B/P (MAP) 106/68 (81) Pulse Ox 95 O2 Delivery Room Air Room Air 10/17/22 23:59 Intake Total 1350 ml Output Total 100 ml Balance 1250 ml Weight (Pounds): 150 Weight (Ounces): 0.0 Weight (Calculated Kilograms): 68.572606 Constitutional: AAO x 3 Respiratory: lungs clear to auscultation Cardiovascular: irregularly irregular, tachycardia Gastrointestional: soft Neurologic/Psychiatric: no motor/sensory deficits, alert, normal mood/affect, oriented x 3 Skin: normal color Results/Procedures: Labs Laboratory Tests 10/18/22 06:25: White Blood Count 5.2, Red Blood Count 4.31, Hemoglobin 10.7L, Hematocrit 35, Mean Corpuscular Volume 81, Mean Corpuscular Hemoglobin 25, Mean Corpuscular Hemoglobin Concent 31L, Red Cell Distribution Width 16.1H, Platelet Count 315, Mean Platelet Volume 11.3, Immature Granulocyte % (Auto) 1, Neutrophils (%) (Auto) 50, Lymphocytes (%) (Auto) 39, Monocytes (%) (Auto) 7, Eosinophils (%) (Auto) 2, Basophils (%) (Auto) 1, Neutrophils # (Auto) 2.6, Lymphocytes # (Auto) 2.1, Monocytes # (Auto) 0.4, Eosinophils # (Auto) 0.1, Basophils # (Auto) 0.0, Immature Granulocyte # (Auto) 0.0, Sodium Level 140, Potassium Level 4.1, Chloride Level 108H, Carbon Dioxide Level 21, Anion Gap 11, Blood Urea Nitrogen 19H, Creatinine 0.97, Estimat Glomerular Filtration Rate 61, BUN/Creatinine Ra rachell 20, Glucose Level 102, Calcium Level 8.8, Corrected Calcium 9.0, Magnesium Level 1.9, Total Bilirubin 0.4, Aspartate Amino Transf (AST/SGOT) 17, Alanine Aminotransferase (ALT/SGPT) 26, Alkaline Phosphatase 87, Total Protein 6.5, Albumin 3.7 Microbiology 10/15/22 MRSA Screen - Final, Complete MRSA not isolated A/P: Assessment/Dx: Chest pain Palpitation Paroxysmal atrial flutter Sinus node dysfunction Plan: Chest pain nonspecific etiology, atypical in presentation History of chronic recurrent chest pain work-up was negative Cardiac catheterization done in September 2021 with mild coronary artery disease nonobstructive disease Palpitations secondary to tachycardia Atrial flutter with 2-1 conduction History of paroxysmal atrial fibrillation and syncope in the past diagnosed in December 2020. Had loop monitor implanted in July 2021 Has been having multiple episode of atrial fibrillation with tachybradycardia episode. She was seen by Dr. Montgomery I recommended permanent pacemaker, had a pacemaker implanted on September 24, 2021 Had electrical cardioversion on September 24, 2021 Has been taking amiodarone but ran out of her Xarelto for the past 4 to 5 months. We will start Cardizem bolus and a drip Not currently on oral anticoagulation due to expense. However she also tells me that she has fallen numerous times recently. She may not be the best candidate for oral anticoagulation. I will let Dr. Dobbins decide about a Watchman device. Discussed about risk of stroke. Will give Lovenox while she is in the hospital. KENDALL done in January 2022 with dilated left atrium, prosthetic valve in the mitral position functioning normally. Moderate perivalvular regurgitation. Sinus node dysfunction, status post pacemaker implantation. History of hypotension with orthostatic syncope. We will give her a bolus of IV fluid and monitor History of hypertension, monitor blood pressure Hyperlipidemia, monitor lipids History of anemia with GI bleed and hiatal hernia. GERD and diverticulitis. Mild bilateral carotid stenosis last ultrasound was done in July 2021 Vinod MALHOTRA MD Oct 18, 2022 13:46
[2022-10-18] MEDS: PARoxetine 20 MG TABLET PO SCH (20:30)
[2022-10-19 04:00] VITALS: BP 101/68
[2022-10-19 05:46] VITALS: BP 101/68
[2022-10-19 06:04] LABS: BASOPHILS # (AUTO) 0.1 10^3/uL (0.0-0.1); BASOPHILS % (AUTO) 1 % (0-10); EOSINOPHILS # (AUTO) 0.1 10^3/uL (0.0-0.3); EOSINOPHILS % (AUTO) 2 % (0-10); HEMATOCRIT 33 % (35-52); LYMPHOCYTES # (AUTO) 2.3 10^3/uL (1.0-4.0); LYMPHOCYTES % (AUTO) 39 % (12-44); MEAN CORPUSCULAR HEMOGLOBIN 25 pg (25-34); MEAN CORPUSCULAR HGB CONC 31 g/dL (32-36); MEAN CORPUSCULAR VOLUME 81 fL (80-99); MEAN PLATELET VOLUME 11.6 fL (9.0-12.2); MONOCYTES # (AUTO) 0.4 10^3/uL (0.0-1.0); MONOCYTES % (AUTO) 6 % (0-12); NEUTROPHILS % (AUTO) 52 % (42-75); PLATELET COUNT 312 10^3/uL (130-400); WHITE BLOOD COUNT 5.8 10^3/uL (4.3-11.0)
[2022-10-19 06:31] LABS: ALBUMIN 3.6 GM/DL (3.2-4.5); BILIRUBIN,TOTAL 0.4 MG/DL (0.1-1.0); CREATININE SERUM 1.04 MG/DL (0.60-1.30); MAGNESIUM 1.8 MG/DL (1.6-2.4); POTASSIUM 4.1 MMOL/L (3.6-5.0); TOTAL PROTEIN 6.4 GM/DL (6.4-8.2)
[2022-10-19] MEDS: LEVOTHYROXINE 75 MCG TABLET PO SCH (06:37)
[2022-10-19 08:15] VITALS: BP 119/58
[2022-10-19] MEDS: PANTOPRAZOLE 40 MG TABLET PO SCH (09:09)
[2022-10-19] MEDS: APIXABAN 5 MG TABLET PO SCH (09:10)
[2022-10-19] MEDS: metFORMIN 500 MG TABLET PO SCH (09:10)
[2022-10-19] MEDS: DOCUSATE SODIUM 100 MG CAPSULE PO SCH (09:10)
[2022-10-19] MEDS: AMIODARONE 200 MG TABLET PO SCH (09:10)
[2022-10-19] MEDS: SENNOSIDES 8.6 MG TABLET PO SCH (09:10)
--- NOTE | 2022-10-19 10:03 | Physician Query-Final Dx ---
MARY NICOLAS 10/19/22 1003: Final Diagnosis Give Final Diagnosis Please give Final Diagnosis The medical record reflects the following clinical scenario: The patient, in the setting of History/Risk factors, Hx of VHD and HTN, At. Fib Clinical Findings KENDALL showing: Normal systolic function with grade II diastolic dysfunction, BNP 197 Treatment Cardiology consult, KENDALL, Question: Can you further specify CHF per the clinical indicators above? Please document your response in the Progress Notes or Discharge Summary. Chronic Diastolic Heart Failure, Present on admission Other, with explanation of clinical findings Clinically undetermined, no explanation for clinical findings Please clarify and document your clinical opinion in the Progress Notes and Discharge Summary including the definitive and/or presumptive diagnosis, (suspected or probable), related to the above clinical findings. Please include clinical findings supporting your diagnosis. In responding to this query, please exercise your independent professional judgment. The purpose of this communication is to more accurately reflect the complexity of your patients condition. The fact that a question is asked does not imply that any particular answer is desired or expected. Thank you for timely response to this clarification. Mary Nicolas, MSN, RN Clinical [employer] [phone] JS MELLO DO 10/19/22 1943: Final Diagnosis Give Final Diagnosis Chronic Diastolic Heart Failure, Present on admission MARY NICOLAS Oct 19, 2022 10:03 JS MELLO DO Oct 19, 2022 19:43
[2022-10-19] MEDS ORDERED: APIX5TAB PO (10:04)
[2022-10-19] MEDS ORDERED: AMIO200T65 PO (10:04)
[2022-10-19] MEDS ORDERED: MTP25TSR PO (10:04)
[2022-10-19] MEDS ORDERED: ATOR20TA66 PO (10:04)
[2022-10-19] MEDS ORDERED: PARO40TA3 PO (10:04)
[2022-10-19] MEDS ORDERED: PANT40TA52 PO (10:04)
[2022-10-19] MEDS ORDERED: METF-399 PO (10:04)
--- NOTE | 2022-10-19 10:04 | Discharge Summary ---
Diagnosis/Chief Complaint Date of Admission Oct 15, 2022 at 13:01 Date of Discharge Discharge Date: Oct 19, 2022 Discharge Diagnosis Assessment 1. Atrial Flutter with RVR 2. CHF 3. Noncompliance with oral anticoagulation 4. high risk for falls with weakness Supportive care Antiarrhythmics Discharge Summary Discharge Physical Examination Allergies: Coded Allergies: vancomycin (Verified Allergy, Severe, HIVES, DIFFICULTY BREATHING, 07/05/19) Penicillins (Verified Allergy, Unknown, 09/24/21) Vitals & I&Os Vital Signs Date Time Temp Pulse Resp B/P (MAP) Pulse Ox O2 Delivery O2 Flow Rate FiO2 10/19/22 11:39 36.1 101 19 125/62 (83) 97 Room Air 10/18/22 09:27 21 10/18/22 07:37 0.00 General Appearance: Alert, Oriented X3, Cooperative Respiratory: Clear to Auscultation Psych/Mental Status: Mental Status NL Hospital Course Was the Problem List Reviewed?: Yes 10/19/2022: Nadine is a 72 year old female that came to the hospital ER (10/15) due to not feeling well, with a history of cardiac health concerns, a prosthetic mitral valve, pacemaker, and a loop monitor. She also revealed that she had some issues with medication compliance with her anticoagulation medication. Nadine was started on Lovenox for stroke prophylaxis. While at the hospital, EKG also showed atrial flutter. Cardiology was consulted multiple times and found that she has atrial flutter with rapid ventricular response, sinus node dysfunction, CHF, and hypotension. Cardiology discussed risks for stroke if Nadine continues to not take her medication. A watchman was discussed. Nadine was properly anticoagulated and received an IV bolus to help with these symptoms. She was also given amiodarone for the atrial flutter with RVR. While in the hospital, her CBC and CMP was monitored to ensure proper treatment. At time of discharge, there are no concerns about these labs. She was in the ICU for the beginning of her stay, but showed improvement and was moved to the 4th floor MED/SURG unit. Since being on the 4th floor, Nadine has continued to show improvement. She desires to return home. Proper patient education about anticoagulation should help resolve medication non-compliance. Nadine's medications have been altered as follows: Apixaban 5mg PO BID (Start), Amiodarone 200 mg PO q24 (changed from BID), Metoprolol Succinate 25 mg q24 (changed from taking at 1200). All previous medications remain unchanged. Plan is for Nadine to remain compliant with medications, which were sent to the [facility] for pick-up following discharge. Nadine was also made aware to notify hospital of any changes or if she beings to have chest pain, neurological changes, or weakness/numbness. She should follow-up with her PCP and cardiology doctors for continued care. WOLF CORDOVA Labs (last 24 hrs) Laboratory Tests 10/15/22 11:26: White Blood Count 6.4, Red Blood Count 4.62, Hemoglobin 11.4L, Hematocrit 38, Mean Corpuscular Volume 82, Mean Corpuscular Hemoglobin 25, Mean Corpuscular Hemoglobin Concent 30L, Red Cell Distribution Width 16.1H, Platelet Count 327, Mean Platelet Volume 11.3, Immature Granulocyte % (Auto) 1, Neutrophils (%) (Auto) 60, Lymphocytes (%) (Auto) 31, Monocytes (%) (Auto) 6, Eosinophils (%) (Auto) 1, Basophils (%) (Auto) 1, Neutrophils # (Auto) 3.9, Lymphocytes # (Auto) 2.0, Monocytes # (Auto) 0.4, Eosinophils # (Auto) 0.1, Basophils # (Auto) 0.1, Immature Granulocyte # (Auto) 0.0, Prothrombin Time 14.0, INR Comment 1.1, Activated Partial Thromboplast Time 29, D-Dimer < 0.27, Sodium Level 138, Potassium Level 4.3, Chloride Level 107, Carbon Dioxide Level 22, Anion Gap 9, Blood Urea Nitrogen 22H, Creatinine 1.08, Estimat Glomerular Filtration Rate 54, BUN/Creatinine Ratio 20, Glucose Level 146H, Calcium Level 9.1, Corrected Calcium 9.2, Magnesium Level 1.9, Total Bilirubin 0.5, Aspartate Amino Transf (AST/SGOT) 29, Alanine Aminotransferase (ALT/SGPT) 32, Alkaline Phosphatase 104, Myoglobin 30.3, Troponin I < 0.028, B-Type Natriuretic Peptide 197.4H, Total Protein 6.8, Albumin 3.9, Lipase 20 10/15/22 11:35: Influenza Type A (RT-PCR) Not Detected, Influenza Type B (RT-PCR) Not Detected, SARS-CoV-2 RNA (RT-PCR) Not Detected 10/15/22 12:25: Urine Color YELLOW, Urine Clarity CLEAR, Urine pH 5.5, Urine Specific Arimo 1 .025H, Urine Protein NEGATIVE, Urine Glucose (UA) NEGATIVE, Urine Ketones NEGATIVE, Urine Nitrite NEGATIVE, Urine Bilirubin NEGATIVE, Urine Urobilinogen 0.2, Urine Leukocyte Esterase NEGATIVE, Urine RBC (Auto) NEGATIVE, Urine RBC NONE, Urine WBC 0-2, Urine Squamous Epithelial Cells 2-5, Urine Crystals NONE, Urine Bacteria TRACE, Urine Casts NONE, Urine Mucus SMALLH, Urine Culture Indicated NO 10/15/22 15:28: Glucometer 124H 10/15/22 20:37: Glucometer 136H 10/16/22 04:40: White Blood Count 6.7, Red Blood Count 4.14, Hemoglobin 10.3L, Hematocrit 34L, Mean Corpuscular Volume 81, Mean Corpuscular Hemoglobin 25, Mean Corpuscular Hemoglobin Concent 31L, Red Cell Distribution Width 16.0H, Platelet Count 311, Mean Platelet Volume 11.7, Immature Granulocyte % (Auto) 1, Neutrophils (%) (Auto) 45, Lymphocytes (%) (Auto) 45H, Monocytes (%) (Auto) 6, Eosinophils (%) (Auto) 2, Basophils (%) (Auto) 1, Neutrophils # (Auto) 3.1, Lymphocytes # (Auto) 3.0, Monocytes # (Auto) 0.4, Eosinophils # (Auto) 0.1, Basophils # (Auto) 0.1, Immature Granulocyte # (Auto) 0.0, Sodium Level 135, Potassium Level 4.1, Chloride Level 107, Carbon Dioxide Level 18L, Anion Gap 10, Blood Urea Nitrogen 21H, Creatinine 1.03, Estimat Glomerular Filtration Rate 57, BUN/Creatinine Ratio 20, Glucose Level 126H, Calcium Level 8.6, Corrected Calcium 9.1, Phosphorus Level 4.1, Magnesium Level 1.8, Total Bilirubin 0.6, Aspartate Amino Transf (AST/SGOT) 35H, Alanine Aminotransferase (ALT/SGPT) 33, Alkaline Phosphatase 95, Total Protein 5.9L, Albumin 3.4 10/16/22 10:28: Glucometer 134H 10/16/22 16:11: Glucometer 122H 10/16/22 21:15: Glucometer 144H 10/17/22 04:56: White Blood Count 5.9, Red Blood Count 4.02, Hemoglobin 10.0L, Hematocrit 32L, Mean Corpuscular Volume 80, Mean Corpuscular Hemoglobin 25, Mean Corpuscular Hemoglobin Concent 31L, Red Cell Distribution Width 15.9H, Platelet Count 312, Mean Platelet Volume 11.5, Immature Granulocyte % (Auto) 0, Neutrophils (%) (Auto) 48, Lymphocytes (%) (Auto) 42, Monocytes (%) (Auto) 8, Eosinophils (%) (Auto) 2, Basophils (%) (Auto) 1, Neutrophils # (Auto) 2.8, Lymphocytes # (Auto) 2.5, Monocytes # (Auto) 0.5, Eosinophils # (Auto) 0.1, Basophils # (Auto) 0.0, Immature Granulocyte # (Auto) 0.0, Sodium Level 139, Potassium Level 4.1, Chloride Level 107, Carbon Dioxide Level 21, Anion Gap 11, Blood Urea Nitrogen 24H, Creatinine 1.12, Estimat Glomerular Filtration Rate 52, BUN/Creatinine Ratio 21, Glucose Level 141H, Calcium Level 8.7, Corrected Calcium 9.3, Phosphorus Level 4.0, Magnesium Level 2.0, Total Bilirubin 0.3, Aspartate Amino Transf (AST/SGOT) 27, Alanine Aminotransferase (ALT/SGPT) 31, Alkaline Phosphatase 93, Total Protein 6.2L, Albumin 3.3 10/18/22 06:25: White Blood Count 5.2, Red Blood Count 4.31, Hemoglobin 10.7L, Hematocrit 35, Mean Corpuscular Volume 81, Mean Corpuscular Hemoglobin 25, Mean Corpuscular Hemoglobin Concent 31L, Red Cell Distribution Width 16.1H, Platelet Count 315, Mean Platelet Volume 11.3, Immature Granulocyte % (Auto) 1, Neutrophils (%) (Auto) 50, Lymphocytes (%) (Auto) 39, Monocytes (%) (Auto) 7, Eosinophils (%) (Auto) 2, Basophils (%) (Auto) 1, Neutrophils # (Auto) 2.6, Lymphocytes # (Auto) 2.1, Monocytes # (Auto) 0.4, Eosinophils # (Auto) 0.1, Basophils # (Auto) 0.0, Immature Granulocyte # (Auto) 0.0, Sodium Level 140, Potassium Level 4.1, Chloride Level 108H, Carbon Dioxide Level 21, Anion Gap 11, Blood Urea Nitrogen 19H, Creatinine 0.97, Estimat Glomerular Filtration Rate 61, BUN/Creatinine Ratio 20, Glucose Level 102, Calcium Level 8.8, Corrected Calcium 9.0, Magnesium Level 1.9, Total Bilirubin 0.4, Aspartate Amino Transf (AST/SGOT) 17, Alanine Aminotransferase (ALT/SGPT) 26, Alkaline Phosphatase 87, Total Protein 6.5, Albumin 3.7 10/19/22 05:14: White Blood Count 5.8, Red Blood Count 4.07, Hemoglobin 10.0L, Hematocrit 33L, Mean Corpuscular Volume 81, Mean Corpuscular Hemoglobin 25, Mean Corpuscular Hemoglobin Concent 31L, Red Cell Distribution Width 15.9H, Platelet Count 312, Mean Platelet Volume 11.6, Immature Granulocyte % (Auto) 1, Neutrophils (%) (Auto) 52, Lymphocytes (%) (Auto) 39, Monocytes (%) (Auto) 6, Eosinophils (%) (Auto) 2, Basophils (%) (Auto) 1, Neutrophils # (Auto) 3.0, Lymphocytes # (Auto) 2.3, Monocytes # (Auto) 0.4, Eosinophils # (Auto) 0.1, Basophils # (Auto) 0.1, Immature Granulocyte # (Auto) 0.0, Sodium Level 138, Potassium Level 4.1, Chloride Level 107, Carbon Dioxide Level 22, Anion Gap 9, Blood Urea Nitrogen 18, Creatinine 1.04, Estimat Glomerular Filtration Rate 56, BUN/Creatinine Ratio 17, Glucose Level 122H, Calcium Level 9.0, Corrected Calcium 9.3, Magnesium Level 1.8, Total Bilirubin 0.4, Aspartate Amino Transf (AST/SGOT) 16, Alanine Aminotransferase (ALT/SGPT) 21, Alkaline Phosphatase 86, Total Protein 6.4, Albumin 3.6 Microbiology 10/15/22 MRSA Screen - Final, Complete MRSA not isolated Pending Labs Microbiology Date/Time Source Procedure Growth Status 10/15/22 13:05 Nasal MRSA Screen - Final MRSA not isolated Complete Laboratory Tests 10/15/22 11:26: White Blood Count 6.4, Red Blood Count 4.62, Hemoglobin 11.4, Hematocrit 38, Mean Corpuscular Volume 82, Mean Corpuscular Hemoglobin 25, Mean Corpuscular Hemoglobin Concent 30, Red Cell Distribution Width 16.1, Platelet Count 327, Mean Platelet Volume 11.3, Immature Granulocyte % (Auto) 1, Neutrophils (%) (Auto) 60, Lymphocytes (%) (Auto) 31, Monocytes (%) (Auto) 6, Eosinophils (%) (Auto) 1, Basophils (%) (Auto) 1, Neutrophils # (Auto) 3.9, Lymphocytes # (Auto) 2.0, Monocytes # (Auto) 0.4, Eosinophils # (Auto) 0.1, Basophils # (Auto) 0.1, Immature Granulocyte # (Auto) 0.0, Prothrombin Time 14.0, INR Comment 1.1, Act ivated Partial Thromboplast Time 29, D-Dimer < 0.27, Sodium Level 138, Potassium Level 4.3, Chloride Level 107, Carbon Dioxide Level 22, Anion Gap 9, Blood Urea Nitrogen 22, Creatinine 1.08, Estimat Glomerular Filtration Rate 54, BUN/Creatinine Ratio 20, Glucose Level 146, Calcium Level 9.1, Corrected Calcium 9.2, Magnesium Level 1.9, Total Bilirubin 0.5, Aspartate Amino Transf (AST/SGOT) 29, Alanine Aminotransferase (ALT/SGPT) 32, Alkaline Phosphatase 104, Myoglobin 30.3, Troponin I < 0.028, B-Type Natriuretic Peptide 197.4, Total Protein 6.8, Albumin 3.9, Lipase 20 10/15/22 11:35: Influenza Type A (RT-PCR) Not Detected, Influenza Type B (RT-PCR) Not Detected, SARS-CoV-2 RNA (RT-PCR) Not Detected 10/15/22 12:25: Urine Color YELLOW, Urine Clarity CLEAR, Urine pH 5.5, Urine Specific [place] 1.025, Urine Protein NEGATIVE, Urine Glucose (UA) NEGATIVE, Urine Ketones NEGATIVE, Urine Nitrite NEGATIVE, Urine Bilirubin NEGATIVE, Urine Urobilinogen 0.2, Urine Leukocyte Esterase NEGATIVE, Urine RBC (Auto) NEGATIVE, Urine RBC NONE, Urine WBC 0-2, Urine Squamous Epithelial Cells 2-5, Urine Crystals NONE, Urine Bacteria TRACE, Urine Casts NONE, Urine Mucus SMALL, Urine Culture Indicated NO 10/15/22 15:28: Glucometer 124 10/15/22 20:37: Glucometer 136 10/16/22 04:40: White Blood Count 6.7, Red Blood Count 4.14, Hemoglobin 10.3, Hematocrit 34, Mean Corpuscular Volume 81, Mean Corpuscular Hemoglobin 25, Mean Corpuscular Hemoglobin Concent 31, Red Cell Distribution Width 16.0, Platelet Count 311, Mean Platelet Volume 11.7, Immature Granulocyte % (Auto) 1, Neutrophils (%) (Auto) 45, Lymphocytes (%) (Auto) 45, Monocytes (%) (Auto) 6, Eosinophils (%) (Auto) 2, Basophils (%) (Auto) 1, Neutrophils # (Auto) 3.1, Lymphocytes # (Auto) 3.0, Monocytes # (Auto) 0.4, Eosinophils # (Auto) 0.1, Basophils # (Auto) 0.1, Immature Granulocyte # (Auto) 0.0, Sodium Level 135, Potassium Level 4.1, Chloride Level 107, Carbon Dioxide Level 18, Anion Gap 10, Blood Urea Nitrogen 21, Creatinine 1.03, Estimat Glomerular Filtration Rate 57, BUN/Creatinine Ratio 20, Glucose Level 126, Calcium Level 8.6, Corrected Calcium 9.1, Phosphorus Level 4.1, Magnesium Level 1.8, Total Bilirubin 0.6, Aspartate Amino Transf ( AST/SGOT) 35, Alanine Aminotransferase (ALT/SGPT) 33, Alkaline Phosphatase 95, Total Protein 5.9, Albumin 3.4 10/16/22 10:28: Glucometer 134 10/16/22 16:11: Glucometer 122 10/16/22 21:15: Glucometer 144 10/17/22 04:56: White Blood Count 5.9, Red Blood Count 4.02, Hemoglobin 10.0, Hematocrit 32, Mean Corpuscular Volume 80, Mean Corpuscular Hemoglobin 25, Mean Corpuscular Hemoglobin Concent 31, Red Cell Distribution Width 15.9, Platelet Count 312, Mean Platelet Volume 11.5, Immature Granulocyte % (Auto) 0, Neutrophils (%) (Auto) 48, Lymphocytes (%) (Auto) 42, Monocytes (%) (Auto) 8, Eosinophils (%) (Auto) 2, Basophils (%) (Auto) 1, Neutrophils # (Auto) 2.8, Lymphocytes # (Auto) 2.5, Monocytes # (Auto) 0.5, Eosinophils # (Auto) 0.1, Basophils # (Auto) 0.0, Immature Granulocyte # (Auto) 0.0, Sodium Level 139, Potassium Level 4.1, Chloride Level 107, Carbon Dioxide Level 21, Anion Gap 11, Blood Urea Nitrogen 24, Creatinine 1.12, Estimat Glomerular Filtration Rate 52, BUN/Creatinine Ratio 21, Glucose Level 141, Calcium Level 8.7, Corrected Calcium 9.3, Phosphorus L evel 4.0, Magnesium Level 2.0, Total Bilirubin 0.3, Aspartate Amino Transf (AST/SGOT) 27, Alanine Aminotransferase (ALT/SGPT) 31, Alkaline Phosphatase 93, Total Protein 6.2, Albumin 3.3 10/18/22 06:25: White Blood Count 5.2, Red Blood Count 4.31, Hemoglobin 10.7, Hematocrit 35, Mean Corpuscular Volume 81, Mean Corpuscular Hemoglobin 25, Mean Corpuscular Hemoglobin Concent 31, Red Cell Distribution Width 16.1, Platelet Count 315, Mean Platelet Volume 11.3, Immature Granulocyte % (Auto) 1, Neutrophils (%) (Auto) 50, Lymphocytes (%) (Auto) 39, Monocytes (%) (Auto) 7, Eosinophils (%) (Auto) 2, Basophils (%) (Auto) 1, Neutrophils # (Auto) 2.6, Lymphocytes # (Auto) 2.1, Monocytes # (Auto) 0.4, Eosinophils # (Auto) 0.1, Basophils # (Auto) 0.0, Immature Granulocyte # (Auto) 0.0, Sodium Level 140, Potassium Level 4.1, Chloride Level 108, Carbon Dioxide Level 21, Anion Gap 11, Blood Urea Nitrogen 19, Creatinine 0.97, Estimat Glomerular Filtration Rate 61, BUN/Creatinine Ratio 20, Glucose Level 102, Calcium Level 8.8, Corrected Calcium 9.0, Magnesium Level 1.9, Total Bilirubin 0.4, Aspartate Amino Transf (AST/SGOT) 17, Alanine Aminotransferase (ALT/SGPT) 26, Alkaline Phosphatase 87, Total Protein 6.5, Albumin 3.7 10/19/22 05:14: White Blood Count 5.8, Red Blood Count 4.07, Hemoglobin 10.0, Hematocrit 33, Mean Corpuscular Volume 81, Mean Corpuscular Hemoglobin 25, Mean Corpuscular Hemoglobin Concent 31, Red Cell Distribution Width 15.9, Platelet Count 312, Mean Platelet Volume 11.6, Immature Granulocyte % (Auto) 1, Neutrophils (%) (Auto) 52, Lymphocytes (%) (Auto) 39, Monocytes (%) (Auto) 6, Eosinophils (%) (Auto) 2, Basophils (%) (Auto) 1, Neutrophils # (Auto) 3.0, Lymphocytes # (Auto) 2.3, Monocytes # (Auto) 0.4, Eosinophils # (Auto) 0.1, Basophils # (Auto) 0.1, Immature Granulocyte # (Auto) 0.0, Sodium Level 138, Potassium Level 4.1, Chloride Level 107, Carbon Dioxide Level 22, Anion Gap 9, Blood Urea Nitrogen 18, Creatinine 1.04, Estimat Glomerular Filtration Rate 56, BUN/Creatinine Ratio 17, Glucose Level 122, Calcium Level 9.0, Corrected Calcium 9.3, Magnesium Level 1.8, Total Bilirubin 0.4, Aspartate Amino Transf (AST/SGOT) 16, Alanine Aminotransferase (ALT/SGPT) 21, Alkaline Phosphatase 86, Total Protein 6.4, Albumin 3.6 Discharge Home Medications: Active Scripts Active Xarelto (Rivaroxaban) 20 Mg Tablet 20 Mg PO DAILY 90 Days USE 340B [employer] PROGRAM Metoprolol Succinate 25 Mg Tab.er.24h 25 Mg PO DAILY Amiodarone HCl 200 Mg Tablet 200 Mg PO DAILY Metformin HCl 1,000 Mg Tablet 500 Mg PO DAILY Paroxetine HCl 40 Mg Tablet 40 Mg PO HS Pantoprazole Sodium 40 Mg Tablet.dr 40 Mg PO DAILY Atorvastatin Calcium 20 Mg Tablet 20 Mg PO HS Reported Tylenol (Acetaminophen) 325 Mg Tablet 650 Mg PO Q6H PRN Levothyroxine Sodium 75 Mcg Tablet 75 Mcg PO DAILY Instructions to patient/family Please see electronic discharge instructions given to patient. JS MELLO DO Oct 19, 2022 10:04
--- NOTE | 2022-10-19 10:40 | Progress Note ---
WOLF CORDOVA 10/19/22 1040: Progress Note 10/19/2022: Nadine is a 72 year old female that came to the hospital ER (10/15) due to not feeling well, with a history of cardiac health concerns, a prosthetic mitral valve, pacemaker, and a loop monitor. She also revealed that she had some issues with medication compliance with her anticoagulation medication. Nadine was started on Lovenox for stroke prophylaxis. While at the hospital, EKG also showed atrial flutter. Cardiology was consulted multiple times and found that she has atrial flutter with rapid ventricular response, sinus node dysfunction, CHF, and hypotension. Cardiology discussed risks for stroke if Nadine continues to not take her medication. A watchman was discussed. Nadine was properly anticoagulated and received an IV bolus to help with these symptoms. She was also given amiodarone for the atrial flutter with RVR. While in the hospital, her CBC and CMP was monitored to ensure proper treatment. At time of discharge, there are no concerns about these labs. She was in the ICU for the beginning of her stay, but showed improvement and was moved to the 4th floor MED/SURG unit. Since being on the 4th floor, Nadine has continued to show improvement. She desires to return home. Proper patient education about anticoagulation should help resolve medication non-compliance. Nadine's medications have been altered as follows: Apixaban 5mg PO BID (Start), Amiodarone 200 mg PO q24 (changed from BID), Metoprolol Succinate 25 mg q24 (changed from taking at 1200). All previous medications remain unchanged. Plan is for Nadine to remain compliant with medications, which were sent to the [facility] for pick-up following discharge. Nadine was also made aware to notify hospital of any changes or if she beings to have chest pain, neurological changes, or weakness/numbness. She should follow-up with her PCP and cardiology doctors for continued care. KIRSTIN MELLO DO 10/19/22 0786: Supervisory-Addendum Brief Verification & Attestation Participated in pt care: history, MDM, physical Personally performed: exam, history, MDM, supervision of care Care discussed with: Medical Student Procedures: n/a Results interpretation: Verified all documentation Verification and Attestation of Medical Student E/M Service A medical student performed and documented this service in my presence. I revie wed and verified all information documented by the medical student and made modifications to such information, when appropriate. I personally performed the physical exam and medical decision making. Kirstin Mello, Oct 19, 2022,21:06 WOLF CORDOVA Oct 19, 2022 10:40 KIRSTIN MELLO DO Oct 19, 2022 21:06
[2022-10-19] MEDS ORDERED: RIVA20TA PO (11:16)
[2022-10-19 11:39] VITALS: BP 125/62
--- NOTE | 2022-10-19 12:02 | Cardiology Progress Note ---
Subjective Date Seen by Provider: Oct 19, 2022 Time Seen by Provider: 10:30 Subjective/Events-last exam Patient is sitting up at bedside, denies any chest pain or dyspnea Objective-Cardiology Exam Last Set of Vital Signs Vital Signs 10/18/22 10/18/22 10/19/22 07:37 09:27 11:39 Temp 36.1 Pulse 101 Resp 19 B/P (MAP) 125/62 (83) Pulse Ox 97 O2 Delivery Room Air O2 Flow Rate 0.00 FiO2 21 I&O Intake and Output 10/19/22 00:00 Intake Total 2490 ml Balance 2490 ml Intake Oral 2490 ml # Voids 8 # Bowel Movements 2 General: Alert, Oriented X3, Cooperative, No Acute Distress HEENT: Atraumatic Lungs: Clear to Auscultation, Normal Air Movement Heart: Other (Irregular irregular) Extremities: No Clubbing, No Cyanosis Neuro: Normal Speech Psych/Mental Status: Mental Status NL Results Lab Laboratory Tests 10/19/22 05:14 A/P-Cardiology Admission Diagnosis Chest pain Palpitation Paroxysmal atrial flutter Sinus node dysfunction Assessment/Plan Chest pain nonspecific etiology, atypical in presentation History of chronic recurrent chest pain work-up was negative Cardiac catheterization done in September 2021 with mild coronary artery disease nonobstructive disease Palpitations secondary to tachycardia Atrial flutter with 2-1 conduction History of paroxysmal atrial fibrillation and syncope in the past diagnosed in December 2020. Had loop monitor implanted in July 2021 Has been having multiple episode of atrial fibrillation with tachybradycardia episode. She was seen by Dr. Montgomery I recommended permanent pacemaker, had a pacemaker implanted on September 24, 2021 Had electrical cardioversion on September 24, 2021 Has been taking amiodarone but ran out of her Xarelto for the past 4 to 5 months. Currently in SR Currently on OAC and tolerating. Patient reports she has been unable to afford Eliquis in the past, I will send RX for Xarelto to [facility] under their 340B plan [place] done in January 2022 with dilated left atrium, prosthetic valve in the mitral position functioning normally. Moderate perivalvular regurgitation. Sinus node dysfunction, status post pacemaker implantation. History of hypotension with orthostatic syncope. History of hypertension, monitor blood pressure Hyperlipidemia, monitor lipids History of anemia with GI bleed and hiatal hernia. GERD and diverticulitis. Mild bilateral carotid stenosis last ultrasound was done in July 2021 Supervisory-Addendum Brief Supervisory Addendum Participated in pt care: history, MDM, physical Personally performed: exam, history, MDM Care discussed with: HOLDEN Results interpretation: Verified all documentation Notes: Patient was seen and evaluated with Olimpia, examination performed, management plan was discussed, agree with the current scribed note, I made few changes to the note using Italic font Patient was seen and evaluated, we discussed the management plan, okay for discharge, follow-up as an outpatient Recommended using oral anticoagulation, Monitor heart rate and blood pressure OLIMPIA EMERY Oct 19, 2022 12:02 MATTHEW VILLALOBOS MD Oct 19, 2022 13:04
== END 2022-10-19 11:55 | disposition home or self-care (01) | DRG 309 ==
LOC: EDUNIT# 11:07 → ER 11:08 → ICU 13:01 → 4TH 10-17 14:38
PROVIDERS: ADMIT Internal Medicine; ATTEND Internal Medicine
DX: I48.92 Unspecified atrial flutter (principal); I50.32 Chronic diastolic (congestive) heart failure; I48.91 Unspecified atrial fibrillation; E11.9 Type 2 diabetes mellitus without complications; Z79.84 Long term (current) use of oral hypoglycemic drugs; Z79.899 Other long term (current) drug therapy; E78.00 Pure hypercholesterolemia, unspecified; K21.9 Gastro-esophageal reflux disease without esophagitis; Z95.0 Presence of cardiac pacemaker; Z95.1 Presence of aortocoronary bypass graft; E03.9 Hypothyroidism, unspecified; Z66 Do not resuscitate; F41.9 Anxiety disorder, unspecified; F32.A Depression, unspecified; Z20.822 Contact with and (suspected) exposure to COVID-19; Z87.891 Personal history of nicotine dependence; R09.02 Hypoxemia; E87.70 Fluid overload, unspecified; Z91.148 Patient's other noncompliance with medication regimen for other reason; Z79.01 Long term (current) use of anticoagulants; I25.10 Atherosclerotic heart disease of native coronary artery without angina pectoris; Z95.2 Presence of prosthetic heart valve; I11.0 Hypertensive heart disease with heart failure; I49.5 Sick sinus syndrome; I65.23 Occlusion and stenosis of bilateral carotid arteries
CPT/HCPCS: 36415; 71045; 80053; 81000; 82947; 83690; 83735; 83874; 83880; 84100; 84484; 85025; 85379; 85610; 85730; 87081; 87636; 93005; 93041; 93306; 94640; 94760; 94761